=== PATIENT | male | born 1955 | race Caucasian/White ===

== ENCOUNTER → 2016-07-10 | Outpatient (CLI) | payer OTHER ==
[~2016-07-10] MED LIST: ACET-1256 PO; ASPI81TA28 PO; LISI-725 PO; TRAZ50TA35 PO
[2016-07-10 18:06] LABS: BLOOD UREA NITROGEN 13 mg/dl (7-18); BUN/CREATININE RATIO 15.6 (10-20); CALCIUM 8.9 mg/dl (8.5-10.1); CARBON DIOXIDE 30 mmol/L (21-32); CHLORIDE 103 mmol/L (98-107); CREATININE 0.83 mg/dl (0.60-1.40); GLUCOSE 103 mg/dl (70-99); POTASSIUM 4.3 mmol/L (3.5-5.1); SODIUM 140 mmol/L (136-145)
[2016-07-10 18:09] LABS: CHOLESTEROL 217 mg/dl (0-200); CHOLESTEROL/HDL RATIO 6.4; HDL CHOLESTEROL 34 mg/dl; LDL CHOLESTEROL CALCULATED 130 mg/dl; TRIGLYCERIDES 264 mg/dl (0-150); VERY LOW DENSITY LIPOPROT CALC 53 mg/dl
[2016-07-13 22:29] LABS: HEPATITIS C RNA TMA QUAL Not detected
== END | disposition home or self-care (01) ==
LOC: C.LABPVFM 13:22
PROVIDERS: ATTEND Family Medicine
DX: I10 Essential (primary) hypertension (principal); K76.0 Fatty (change of) liver, not elsewhere classified; Z00.00 Encounter for general adult medical examination without abnormal findings

== ENCOUNTER → 2017-04-10 | Outpatient (CLI) | payer OTHER ==
[2017-04-10 17:50] LABS: HEMATOCRIT 47.3 % (42-52); MEAN CELL VOLUME 91.7 fL (80-100); MEAN CORPUSCULAR HEMOGLOBIN 30.6 pg (25-34); MEAN CORPUSCULAR HGB CONC 33.4 g/dl (32-36); MEAN PLATELET VOLUME 9.6 fL (7.4-10.4); PLATELET COUNT 302 K/uL (130-400); RED BLOOD COUNT 5.16 M/uL (4.7-6.1); WHITE BLOOD COUNT 9.74 K/uL (4.8-10.8)
[2017-04-10 18:40] LABS: ALT/SGPT 24 U/L (12-78); AST/SGOT 13 U/L (15-37); BLOOD UREA NITROGEN 10 mg/dl (7-18); BUN/CREATININE RATIO 12.5 (10-20); CARBON DIOXIDE 32 mmol/L (21-32); CHLORIDE 100 mmol/L (98-107); CREATININE 0.78 mg/dl (0.60-1.40); GLUCOSE 99 mg/dl (70-99); POTASSIUM 4.4 mmol/L (3.5-5.1); SODIUM 136 mmol/L (136-145)
[2017-04-10 18:43] LABS: ALB/GLOB RATIO 0.7 (0.9-2); ALKALINE PHOSPHATASE 77 U/L (45-117); CHOLESTEROL 215 mg/dl (0-200); CHOLESTEROL/HDL RATIO 6.1; HDL CHOLESTEROL 35 mg/dl; LDL CHOLESTEROL CALCULATED 133 mg/dl; TRIGLYCERIDES 234 mg/dl (0-150); VERY LOW DENSITY LIPOPROT CALC 47 mg/dl
== END | disposition home or self-care (01) ==
LOC: C.LABPVFM 14:38
PROVIDERS: ATTEND Family Medicine
DX: I67.1 Cerebral aneurysm, nonruptured (principal); N43.40 Spermatocele of epididymis, unspecified; N40.0 Benign prostatic hyperplasia without lower urinary tract symptoms

== ENCOUNTER → 2017-07-23 | Outpatient (CLI) | payer OTHER | END | disposition home or self-care (01) | LOC: C.LABPVFM 14:33 | PROVIDERS: ATTEND Urology | DX: N40.0 Benign prostatic hyperplasia without lower urinary tract symptoms (principal) ==

== ENCOUNTER → 2017-08-20 | Outpatient (CLI) | payer OTHER ==
[2017-08-20 17:39] LABS: ALT/SGPT 27 U/L (12-78); AST/SGOT 17 U/L (15-37); BLOOD UREA NITROGEN 13 mg/dl (7-18); CALCIUM 9.1 mg/dl (8.5-10.1); CARBON DIOXIDE 31 mmol/L (21-32); CREATININE 0.85 mg/dl (0.60-1.40); GLUCOSE 99 mg/dl (70-99); POTASSIUM 4.4 mmol/L (3.5-5.1); SODIUM 137 mmol/L (136-145)
[2017-08-20 18:00] LABS: ALBUMIN 3.5 gm/dl (3.4-5.0); ALKALINE PHOSPHATASE 75 U/L (45-117); CHOLESTEROL 219 mg/dl (0-200); LDL CHOLESTEROL CALCULATED 132 mg/dl; TOTAL PROTEIN 7.6 gm/dl (6.4-8.2)
== END | disposition home or self-care (01) ==
LOC: C.LABPVFM 13:46
PROVIDERS: ATTEND Family Medicine
DX: G31.84 Mild cognitive impairment of uncertain or unknown etiology (principal)

== ENCOUNTER 2023-07-23 18:56 | Inpatient (IN) ==
[2023-07-23] MEDS: dexAMETHasone**PF** 10 MG/ML VIAL IV ONE (19:15)
[2023-07-23] MEDS: ALBUT/IPRATROP 3MG/0.5MG NEB 3 ML VIAL NEB ONE (19:15)
--- NOTE | 2023-07-23 19:17 | Emergency Department Note ---
Impression & Plan Acute exacerbation of chronic obstructive pulmonary disease, Hypoxia, Pulmonary edema, Elevated troponin I level, Acute on chronic respiratory acidosis ED Provider Note NAME: MONSE CORDERO AGE: 68 SEX: M : 1955 ARRIVES VIA: Walk-In INFORMANT: Patient, ED PROVIDER(S): Sandor Garland DO CHIEF COMPLAINT: Shortness of breath HPI: The patient is a 68-year-old male who presented to the emergency department for shortness of breath. The patient states has been having shortness of breath over the course of the last week. He does have a history of tobacco use. He also has a history of cerebral aneurysm and coronary artery disease. He denies having any lower extremity swelling. He denies having any chest pain. He states he has had a dry cough intermittently. He states his symptoms are worse with exertion. He does not have orthopnea. The patient is not been seen by his family doctor for the symptoms. He was brought directly back from triage because of abnormal vital signs. ROS: See above HPI for pertinent positives & negatives. A total of 10 systems reviewed and were otherwise negative. PAST MEDICAL HISTORY: See Below PAST SURGICAL HISTORY: See Below FAMILY HISTORY: See Below SOCIAL HISTORY: See Below HOME MEDICATIONS: See Below ALLERGIES: See Below VITALS: See Below PHYSICAL EXAMINATION: GENERAL: The patient is awake and alert. He is very anxious and appears to be very ill. EYES: The conjunctivae are clear. The pupils are round and reactive. EARS, NOSE, MOUTH AND THROAT: The nose is without any evidence of any deformity. NECK: The neck is nontender and supple. RESPIRATORY: Diminished and absent breath sounds are noted throughout. There is very poor air movement. There is significant conversational dyspnea and tachypnea. Pursed of breathing was noted. CARDIOVASCULAR: Tachycardic heart sounds are noted to auscultation. There is no definite murmur GASTROINTESTINAL: The abdomen is soft. Abdomen is nontender. MUSCULOSKELETAL/EXTREMITIES: There is no evidence of gross deformity full range of motion is noted in the hips and shoulders. SKIN: Skin was cool and dry. There is no pedal edema. Skin was mottled. NEUROLOGIC: Patient is awake alert and oriented x3 MEDICAL DECISION MAKING: The patient is a 68-year-old male who presented to the emergency department for an evaluation of difficulty breathing. The patient was brought directly from triage to resuscitation room. He was mottled and short of breath. He was obtunded to some degree but also hypoxic. I discussed the patient's laboratory and radiographic studies with him and his family member. He was treated with a small fluid bolus IV antibiotics bronchodilator therapy IV steroids and he was placed on BiPAP. The patient slowly started to improve. The patient's chest x- ray was read as pulmonary edema and his EKG was abnormal. He also had an elevation in his troponin and his BMP. Because of the complexity the patient's presentation I discussed his condition with the on-call [facility] hospitalist. After discussion they did recommend a CT of the chest for further evaluation. The patient's condition slowly improved. He was felt to be a good candidate for inpatient management. I discussed his condition with his daughter as well. Triage Nursing notes reviewed. Prior medical records reviewed Vital Signs: reviewed and remarkable for hypertension and hypoxia. Differential diagnosis: Reactive airway disease, pneumonia, pneumothorax, COPD, CHF, infections, cardiac ischemia, pulmonary embolism, musculoskeletal, gastrointestinal, as well as other pathologies. ER treatment provided: See below Diagnostics interpreted by me: ECG: EKG was obtained in the emergency department. My interpretation is sinus tachycardia at 121 bpm. Incomplete right bundle branch block pattern was noted with ST depressions in the inferior and low lateral leads. There was PACs noted. This was compared to a tracing from April 08, 2012. There is an increase in rate otherwise no changes were noted Cardiac Monitoring: An order was placed for continuous cardiac monitoring. The monitor shows a rate of 110 bpm with sinus tachycardia. Laboratory studies: As stated above and show below. Imaging studies: See below. Radiographic imaging was reviewed by myself Consultation(s): I discussed this case with Dr. Burrell [facility] COURSE: Procedures: none Critical Care: I have personally spent greater than 55 minutes of critical care time in the direct management of this patient. This includes bedside care, interpretation of diagnostic studies, and testing, discussion with consultants, patient, and family members, and other required patient management activities. This 55 minutes is in excess of all separately billable procedures. 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 History of coronary artery bypass graft Family History Mother Cancer Sister Cancer of the brain Father Prostate cancer Denies family history of Ovarian cancer Myocardial infarction Breast cancer Colorectal cancer Social History Smoking Status: Current every day smoker Tobacco Type: Cigarettes packs per day: 1.5; Cigarettes Per Day: 40; Do You Dip or Chew Tobacco: No; Hx Alcohol Use: No Hx Substance Use: Yes Last Used Substance: Days (ago) Last Used Substance Other:: 07/20/23 Preferred Language: Swedish Communication Ability: Effective 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 Required: No Beliefs That Will Affect Care: None marital status: Single Current Living Situation: Alone current occupational status: retired Feels Safe at Home: Yes Safety Concerns: Feels Safe At This Time caffeine: Yes Dental Care, Regularly: No Physical Activity Frequency: Does not Exercise Seatbelt Use: always Sunscreen Use: No Assistive Devices: Glasses Allergies Allergies Allergy/AdvReac Type Severity Reaction Status Date / Time sulfamethoxazole AdvReac Intermediate Dizziness Verified 07/23/23 20:04 trimethoprim AdvReac Intermediate Dizziness Verified 07/23/23 20:04 Home Meds Home Medications Medication Instructions Recorded Confirmed acetaminophen 500 mg tablet 1,000 mg PO DIRECTED PRN Pain 04/29/19 07/23/23 (Tylenol Extra Strength) escitalopram oxalate 20 mg tablet 20 mg PO QAM 09/19/20 07/23/23 mirtazapine 45 mg tablet 45 mg PO QPM 09/19/20 07/23/23 celecoxib 100 mg capsule (Celebrex) 100 mg PO BID 07/23/23 07/23/23 empagliflozin 10 mg tablet 10 mg PO QAM 07/23/23 07/23/23 (Jardiance) omeprazole 40 mg capsule,delayed 40 mg PO QPM 07/23/23 07/23/23 release Previous Rx's Medication Instructions Recorded metformin 500 mg tablet 500 mg PO BID #60 tabs 08/02/20 atorvastatin 40 mg tablet 40 mg PO QAM #90 tabs 02/27/22 lisinopril 5 mg tablet 5 mg PO QAM #90 tabs 02/27/22 metoprolol succinate 25 mg 25 mg PO QAM #90 tabs 02/27/22 tablet,extended release 24 hr aspirin 81 mg tablet,delayed 81 mg PO DAILY #90 tabs 01/17/23 release Results & Data (ED) Vital Signs Vital Signs - 24 hr 07/23/23 18:59 07/23/23 19:04 07/23/23 19:08 Temperature 36.6 C Temperature Source Temporal Artery Scan Pulse Rate 124 H 122 H Pulse Rate [Apical] Pulse Rate from SpO2 Sensor Respiratory Rate 20 Respiratory Effort / Characteristics Non-Labored Spontaneous Respiratory Depth Normal Respiratory Pattern Blood Pressure 167/78 H Blood Pressure [Left Arm] Blood Pressure Mean 107 Blood Pressure Mean [Left Arm] Blood Pressure Position Sitting Pulse Oximetry 74 L 70 L Oxygen Delivery Method Room Air Oxygen Flow Rate 0 Fraction of Inspired Oxygen Sepsis Recent Fever Within 48 Hours No Sepsis New/Unexplained Change in Mental Status N/A Sepsis Action Taken by Nursing No Action Required Oxygen Flow Rate - Titration 15 07/23/23 19:14 07/23/23 19:17 07/23/23 19:30 Temperature Temperature Source Pulse Rate 120 H 122 H Pulse Rate [Apical] 120 H Pulse Rate from SpO2 Sensor 124 H 91 H Respiratory Rate 34 H Respiratory Effort / Characteristics Labored Respiratory Depth Respiratory Pattern Blood Pressure 179/109 H Blood Pressure [Left Arm] 141/111 H Blood Pressure Mean 132 Blood Pressure Mean [Left Arm] 121 Blood Pressure Position Pulse Oximetry 96 96 94 Oxygen Delivery Method Nebulizer Nebulizer Oxygen Flow Rate Fraction of Inspired Oxygen Sepsis Recent Fever Within 48 Hours Sepsis New/Unexplained Change in Mental Status Sepsis Action Taken by Nursing Oxygen Flow Rate - Titration 07/23/23 19:31 07/23/23 19:44 07/23/23 19:45 Temperature Temperature Source Pulse Rate 119 H 124 H 135 H Pulse Rate [Apical] Pulse Rate from SpO2 Sensor 116 H 118 H Respiratory Rate 30 H Respiratory Effort / Characteristics Non-Labored Spontaneous Respiratory Depth Normal Respiratory Pattern Regular Blood Pressure 188/96 H 154/91 H Blood Pressure [Left Arm] Blood Pressure Mean 126 112 Blood Pressure Mean [Left Arm] Blood Pressure Position Pulse Oximetry 96 97 91 Oxygen Delivery Method Nebulizer Non-rebreather Oxygen Flow Rate Fraction of Inspired Oxygen 80 Sepsis Recent Fever Within 48 Hours Sepsis New/Unexplained Change in Mental Status Sepsis Action Taken by Nursing Oxygen Flow Rate - Titration 07/23/23 20:00 07/23/23 20:15 07/23/23 20:32 Temperature Temperature Source Pulse Rate 123 H Pulse Rate [Apical] Pulse Rate from SpO2 Sensor 117 H 114 H 117 H Respiratory Rate Respiratory Effort / Characteristics Respiratory Depth Respiratory Pattern Blood Pressure 136/100 126/105 H Blood Pressure [Left Arm] Blood Pressure Mean 112 112 Blood Pressure Mean [Left Arm] Blood Pressure Position Pulse Oximetry 96 97 97 Oxygen Delivery Method BiPAP Oxygen Flow Rate Fraction of Inspired Oxygen Sepsis Recent Fever Within 48 Hours Sepsis New/Unexplained Change in Mental Status Sepsis Action Taken by Nursing Oxygen Flow Rate - Titration 07/23/23 21:00 Temperature Temperature Source Pulse Rate 121 H Pulse Rate [Apical] Pulse Rate from SpO2 Sensor 109 H Respiratory Rate Respiratory Effort / Characteristics Respiratory Depth Respiratory Pattern Blood Pressure 117/85 Blood Pressure [Left Arm] Blood Pressure Mean 95 Blood Pressure Mean [Left Arm] Blood Pressure Position Pulse Oximetry 97 Oxygen Delivery Method Oxygen Flow Rate Fraction of Inspired Oxygen Sepsis Recent Fever Within 48 Hours Sepsis New/Unexplained Change in Mental Status Sepsis Action Taken by Nursing Oxygen Flow Rate - Titration Home Medications Current Medication List: was personally reviewed by me Laboratory Data Attestation: I reviewed the patient's lab results. 07/23/23 19:18 07/23/23 19:18 Lab Results 07/23/23 07/23/23 07/23/23 Range/Units 19:18 19:20 19:27 WBC 14.86 H (4.8-10.8) K/ul RBC 5.84 (4.70-6.10) M/uL Hgb 17.1 (14.0-18.0) g/dl POC Hgb 19.4 H (14.0-18.0) g/dl Hct 55.4 H (42.0-52.0) % POC Hct 57 H (42-52) % MCV 94.9 (80.0-100.0) fL MCH 29.3 (25.0-34.0) pg MCHC 30.9 L (32.0-36.0) g/dL RDW Std Deviation 51.5 H (36.4-46.3) fL RDW Coeff of Christy 14.9 H (11.5-14.5) % Plt Count 350 (130-400) K/uL MPV 9.9 (9.4-12.4) fL Immature Gran % (Auto) 0.8 % Neut % (Auto) 82.5 % Lymph % (Auto) 6.2 % [place] % (Auto) 10.2 % Eos % (Auto) 0.0 % Baso % (Auto) 0.3 % Neut # (Auto) 12.27 H (1.40-6.50) K/uL Lymph # (Auto) 0.92 L (1.20-3.40) K/uL [place] # (Auto) 1.51 H (0.11-0.59) K/uL Eos # (Auto) 0.00 (0.00-0.50) K/uL Baso # (Auto) 0.04 (0.00-0.20) K/uL Immature Gran # (Auto) 0.12 (0.01-0.20) K/uL Absolute Nucleated RBC 0.04 (0.00-0.12) K/uL Nucleated RBC % (auto) 0.3 % Polychromasia 1+ Echinocytes 2+ PT Cancelled INR Cancelled APTT Cancelled PTT Ratio Cancelled ABG pH (7.35-7.45) ABG pCO2 (35-46) mmHg ABG pO2 (80-95) mmHg ABG HCO3 (19-24) mmol/L ABG O2 Saturation (90-95) % ABG Base Excess (-9-1.8) mEq/L Ryan Test (Pos) VBG pH 7.17 L (7.36-7.41) VBG pCO2 80 H (38-50) mmHg VBG pO2 53 mmHg VBG HCO3 29 mmol/L VBG O2 Saturation 76.7 % VBG Base Excess -1.5 mEq/L Oxygen Given POC Sodium 141 (135-144) mmol/L Sodium 140 (136-145) mmol/L POC Potassium 3.9 (3.3-5.0) mmol/L Potassium 3.9 (3.5-5.1) mmol/L POC Chloride 101 (101-112) mmol/L Chloride 98 (98-107) mmol/L Carbon Dioxide 28 (21-32) mmol/L POC Total CO2 30 (24-31) mmol/L Anion Gap 14 H (3-11) POC Anion Gap 15.0 L (16-25) mmol/L POC BUN 25 H (7-18) mg/dl BUN 25 H (6-23) mg/dl Creatinine 1.17 (0.6-1.4) mg/dl POC Creatinine 1.0 (0.6-1.3) mg/dl Est Cr Clr Drug Dosing 71.6 ml/min Est GFR ( Amer) 73.3 ml/min Est GFR (Non-Af Amer) 63.2 ml/min BUN/Creatinine Ratio 21.4 H (10-20) Glucose 224 H (70-99(Fasting)) mg/dl POC Glucose (other) 228 H (70-99) mg/dl Lactate 5.7 H* (0.4-2.0) mmol/L Calcium 10.1 (8.6-10.3) mg/dl POC Ioniz Calcium Jaime 1.16 (1.12-1.32) mmol/l Magnesium 1.6 L (1.7-2.4) mg/dl Total Bilirubin 0.9 (0.2-1.0) mg/dl Direct Bilirubin 0.4 H (0-0.2) mg/dl AST 20 (13-39) U/L ALT 25 (7-52) U/L Alkaline Phosphatase 83 (34-104) U/L Troponin I High Sens 96.3 H* (0-20) pg/ml B-Natriuretic Peptide 1072 H (0-100) pg/ml Total Protein 8.7 H (6.0-8.3) gm/dl Albumin 3.8 (3.4-5.0) gm/dl Procalcitonin 0.42 (0-0.5) ng/ml Adenovirus (PCR) Not Detected (NotDetected) B. pertussis DNA (PCR) Not Detected (NotDetected) B.parapertussis DNA PCR Not Detected (NotDetected) C. pneumoniae DNA (PCR) Not Detected (NotDetected) Coronavirus OC43 (PCR) Not Detected (NotDetected) Coronavirus HKU1 (PCR) Not Detected (NotDetected) Coronavirus 229E (PCR) Not Detected (NotDetected) SARS-CoV-2 (PCR) Not Detected (NotDetected) Coronavirus NL63 (PCR) Not Detected (NotDetected) Human Metapneumovir PCR Not Detected (NotDetected) Influenza Type A (PCR) Not Detected (NotDetected) Influenza Type B (PCR) Not Detected (NotDetected) M. pneumoniae (PCR) Not Detected (NotDetected) Parainfluenza 1 (PCR) Not Detected (NotDetected) Parainfluenza 2 (PCR) Not Detected (NotDetected) Parainfluenza 3 (PCR) Not Detected (NotDetected) Parainfluenza 4 (PCR) Not Detected (NotDetected) RSV (PCR) Not Detected (NotDetected) Entero/Rhino (PCR) Not Detected (NotDetected) 07/23/23 07/23/23 07/23/23 Range/Units 20:18 21:09 21:10 WBC (4.8-10.8) K/ul RBC (4.70-6.10) M/uL Hgb (14.0-18.0) g/dl POC Hgb (14.0-18.0) g/dl Hct (42.0-52.0) % POC Hct (42-52) % MCV (80.0-100.0) fL MCH (25.0-34.0) pg MCHC (32.0-36.0) g/dL RDW Std Deviation (36.4-46.3) fL RDW Coeff of Christy (11.5-14.5) % Plt Count (130-400) K/uL MPV (9.4-12.4) fL Immature Gran % (Auto) % Neut % (Auto) % Lymph % (Auto) % [place] % (Auto) % Eos % (Auto) % Baso % (Auto) % Neut # (Auto) (1.40-6.50) K/uL Lymph # (Auto) (1.20-3.40) K/uL [place] # (Auto) (0.11-0.59) K/uL Eos # (Auto) (0.00-0.50) K/uL Baso # (Auto) (0.00-0.20) K/uL Immature Gran # (Auto) (0.01-0.20) K/uL Absolute Nucleated RBC (0.00-0.12) K/uL Nucleated RBC % (auto) % Polychromasia Echinocytes PT TNP 11.3 INR TNP 1.0 APTT TNP 26 PTT Ratio TNP 0.9 ABG pH 7.20 L (7.35-7.45) ABG pCO2 81 H (35-46) mmHg ABG pO2 266 H (80-95) mmHg ABG HCO3 32 H (19-24) mmol/L ABG O2 Saturation 99.8 H (90-95) % ABG Base Excess 1.2 (-9-1.8) mEq/L Ryan Test Pos (Pos) VBG pH (7.36-7.41) VBG pCO2 (38-50) mmHg VBG pO2 mmHg VBG HCO3 mmol/L VBG O2 Saturation % VBG Base Excess mEq/L Oxygen Given 80% FiO2 POC Sodium (135-144) mmol/L Sodium (136-145) mmol/L POC Potassium (3.3-5.0) mmol/L Potassium (3.5-5.1) mmol/L POC Chloride (101-112) mmol/L Chloride (98-107) mmol/L Carbon Dioxide (21-32) mmol/L POC Total CO2 (24-31) mmol/L Anion Gap (3-11) POC Anion Gap (16-25) mmol/L POC BUN (7-18) mg/dl BUN (6-23) mg/dl Creatinine (0.6-1.4) mg/dl POC Creatinine (0.6-1.3) mg/dl Est Cr Clr Drug Dosing ml/min Est GFR ( Amer) ml/min Est GFR (Non-Af Amer) ml/min BUN/Creatinine Ratio (10-20) Glucose (70-99(Fasting)) mg/dl POC Glucose (other) (70-99) mg/dl Lactate 2.4 H* (0.4-2.0) mmol/L Calcium (8.6-10.3) mg/dl POC Ioniz Calcium Jaime (1.12-1.32) mmol/l Magnesium (1.7-2.4) mg/dl Total Bilirubin (0.2-1.0) mg/dl Direct Bilirubin (0-0.2) mg/dl AST (13-39) U/L ALT (7-52) U/L Alkaline Phosphatase (34-104) U/L Troponin I High Sens 97.2 H* (0-20) pg/ml B-Natriuretic Peptide (0-100) pg/ml Total Protein (6.0-8.3) gm/dl Albumin (3.4-5.0) gm/dl Procalcitonin (0-0.5) ng/ml Adenovirus (PCR) (NotDetected) B. pertussis DNA (PCR) (NotDetected) B.parapertussis DNA PCR (NotDetected) C. pneumoniae DNA (PCR) (NotDetected) Coronavirus OC43 (PCR) (NotDetected) Coronavirus HKU1 (PCR) (NotDetected) Coronavirus 229E (PCR) (NotDetected) SARS-CoV-2 (PCR) (NotDetected) Coronavirus NL63 (PCR) (NotDetected) Human Metapneumovir PCR (NotDetected) Influenza Type A (PCR) (NotDetected) Influenza Type B (PCR) (NotDetected) M. pneumoniae (PCR) (NotDetected) Parainfluenza 1 (PCR) (NotDetected) Parainfluenza 2 (PCR) (NotDetected) Parainfluenza 3 (PCR) (NotDetected) Parainfluenza 4 (PCR) (NotDetected) RSV (PCR) (NotDetected) Entero/Rhino (PCR) (NotDetected) Administered Medications Azithromycin 500 mg/ Dextrose 255 mls @ 125 mls/hr IV 2230 ONE Stop: 07/24/23 00:32 Last Admin: 07/23/23 22:57 Dose: 125 mls/hr Documented By: BRONSON Discontinued Medications Albuterol (Albut/Ipratrop 3mg/0.5mg Neb 3 Ml Vial) 12 ml NEB ONE ONE; Protocol Stop: 07/23/23 19:06 Last Admin: 07/23/23 19:15 Dose: 12 ml Documented By: GASTON Dexamethasone Sodium Phosphate (DexamethasonePf 10 Mg/Ml Vial) 10 mg IV NOW ONE Stop: 07/23/23 19:06 Last Admin: 07/23/23 19:15 Dose: 10 mg Documented By: EMB Ceftriaxone Sodium (Rocephin) 2,000 mg in 50 mls @ 100 mls/hr IV NOW STA Stop: 07/23/23 19:41 Last Infusion: 07/23/23 20:21 Dose: Infused Documented By: Admin: 07/23/23 19:53 Dose: 100 mls/hr Documented By: EMB Sodium Chloride (Nss) 500 mls @ 999 mls/hr IV .Q31M ONE Stop: 07/23/23 20:14 Last Infusion: 07/23/23 20:21 Dose: Infused Documented By: Admin: 07/23/23 19:53 Dose: 999 mls/hr Documented By: EMB Magnesium Sulfate/Dextrose (Magnesium Sulfate / D5w) 1 gm in 100 mls @ 100 mls/hr IV Q1H ANALIA Stop: 07/23/23 22:00 Last Infusion: 07/23/23 22:53 Dose: Infused Documented By: Admin: 07/23/23 21:44 Dose: 100 mls/hr Documented By: Infusion: 07/23/23 21:20 Dose: Infused Documented By: Admin: 07/23/23 20:20 Dose: 100 mls/hr Documented By: EMB Ioversol (Optiray 350 500ml) 78 ml IV ONCE ONE Stop: 07/23/23 21:35 Last Admin: 07/23/23 21:35 Dose: 78 ml Documented By: PARTHA Imaging Data Attestation: I personally reviewed and interpreted this imaging study as follows: My Impression: 1 view chest x-ray was obtained in the emergency department. My interpretation is cardiomegaly, final report below Radiologist's Impression: Chest X-Ray 07/23/23 19:05 SINGLE VIEW CHEST CLINICAL HISTORY: Sepsis. FINDINGS: 2 AP, portable, upright chest radiographs are compared to study dated 04/08/2012. The patient is status post midline sternotomy. The heart is enlarged noting atherosclerotic calcification of the thoracic aorta. There is pulmonary vascular congestion. There is bibasilar scarring/atelectasis. No airspace consolidation or large pleural effusion is identified. No pneumothorax is seen. The skeletal structures are osteopenic. The bony thorax is grossly intact. Arthritic change is noted in the left shoulder. IMPRESSION: Cardiomegaly with pulmonary vascular congestion. ACT 112: Negative or not required by law. Electronically signed by: Oren Perez M.D. 07/23/2023 7:26 PM Chest CTA 07/23/23 20:34 Exam(s): CTA CHEST IV Amt: 78 ml opti 320 EXAM: CT Angiography Chest With Intravenous Contrast CLINICAL HISTORY: Reason for exam: PE. TECHNIQUE: Axial computed tomographic angiography images of the chest with intravenous contrast. CTDI is 40.94 mGy and DLP is 976.16 mGy-cm. Automated exposure control was utilized for the study. A dose lowering technique was utilized adhering to the principles of ALARA. MIP reconstructed images were created and reviewed. COMPARISON: None. FINDINGS: Limitations: Exam is limited due to motion/breathing artifact. Pulmonary arteries: Unremarkable. Normal enhancement of the pulmonary arteries with no filling defect to suggest pulmonary embolus. Aorta: Atherosclerotic disease of aorta with no dissection. Mild aneurysmal dilatation of the distal thoracic aorta measuring 3.1 x 3.1 cm. Lungs: There is diffuse interstitial prominence with scattered minimal groundglass pattern suggestive of interstitial lung disease versus diffuse pneumonitis. Findings are atypical for interstitial pulmonary edema although not excluded. There are small nodularities within the right lower lobe, largest measuring 9.3 mm. There is a small cavitary lesion in the left lung apex (image 113, series 3 measuring 7 mm). These could represent nonspecific inflammatory changes versus neoplasm. Minimal atelectasis of the lingular lobe. No mass. Pleural space: Unremarkable. No significant effusion. No pneumothorax. Heart: Unremarkable. No cardiomegaly. No significant pericardial effusion. No evidence of RV dysfunction. Normal cardiac size with coronary artery calcifications. Bones/joints: No acute fracture. No dislocation. Soft tissues: Unremarkable. Lymph nodes: Unremarkable. No enlarged lymph nodes. Liver: Abdominal structures revealed diffuse fatty liver otherwise unremarkable. Other findings: Multilevel degenerative disease of the spine. IMPRESSION: 1. No pulmonary embolus or aortic dissection. 2. Diffuse interstitial pneumonitis versus chronic interstitial lung disease. 3. Small right lower lobe and left apical nodularities which may indicate inflammatory process versus neoplasm. Recommend short interval CT examination at 3 months interval to evaluate resolution. Electronically signed by: Namrata Olmstead MD 07/23/23 22:55 PM Discharge Plan Visit Data Chief Complaint: Shortness of Breath/Dyspnea Stated Complaint: SOB, URINARY SYMPTOMS ED Provider: Sandor Garland Discharge Problem: Acute exacerbation of chronic obstructive pulmonary disease, Hypoxia, Pulmonary edema, Elevated troponin I level, Acute on chronic respiratory acidosis Patient Disposition: Admitted As Inpatient Discharge Instructions Interventions: ED Discharge Assessment Last Done: 07/23/23 22:27 Discharge Problem: Pulmonary edema Qualifiers: Chronicity: acute Qualified Code(s): J81.0 - Acute pulmonary edema
--- NOTE | 2023-07-23 19:27 | XRay Report ---
SINGLE VIEW CHEST CLINICAL HISTORY: Sepsis. FINDINGS: 2 AP, portable, upright chest radiographs are compared to study dated 04/08/2012. The patie nt is status post midline sternotomy. The heart is enlarged noting atherosclerotic calcification of t he thoracic aorta. There is pulmonary vascular congestion. There is bibasilar scarring/atelectasis. N o airspace consolidation or large pleural effusion is identified. No pneumothorax is seen. The skelet al structures are osteopenic. The bony thorax is grossly intact. Arthritic change is noted in the lef t shoulder. IMPRESSION: Cardiomegaly with pulmonary vascular congestion. ACT 112: Negative or not required by law. Electronically signed by: Oren Perez M.D. 07/23/2023 7:26 PM
[2023-07-23 19:40] LABS: iSTAT Hemoglobin 19.4 g/dl (14.0-18.0); iSTAT Ionized Calcium 1.16 mmol/l (1.12-1.32); iSTAT Potassium 3.9 mmol/L (3.3-5.0)
[2023-07-23 19:42] LABS: Base Excess VBG -1.5 mEq/L; HCO3 VBG 29 mmol/L; Oxygen Saturation VBG 76.7 %; PCO2 VBG 80 mmHg (38-50); PO2 VBG 53 mmHg; pH VBG 7.17 (7.36-7.41)
[2023-07-23 19:50] LABS: Hematocrit (blood only) 55.4 % (42.0-52.0); Hemoglobin 17.1 g/dl (14.0-18.0); Mean Corpuscular Hemoglobin 29.3 pg (25.0-34.0); Mean Corpuscular Hgb Conc 30.9 g/dL (32.0-36.0); Mean Corpuscular Volume 94.9 fL (80.0-100.0); Mean Platelet Volume 9.9 fL (9.4-12.4); Nucleated RBC # (auto) 0.04 K/uL (0.00-0.12); Nucleated RBC % (auto) 0.3 %; Platelet Count 350 K/uL (130-400); RDW Coefficient of Variation 14.9 % (11.5-14.5); RDW Standard Deviation 51.5 fL (36.4-46.3); Red Blood Count 5.84 M/uL (4.70-6.10); White Blood Count 14.86 K/ul (4.8-10.8)
[2023-07-23] MEDS: cefTRIAXone SODIUM 2,000 MG/50 ML BAG IV STA (19:53)
[2023-07-23] MEDS: SODIUM CHLORIDE 0.9% 500 ML IV ONE (19:53)
[2023-07-23 19:57] LABS: Albumin Level 3.8 gm/dl (3.4-5.0); BUN Creatinine Ratio 21.4 (10-20); Bilirubin Direct 0.4 mg/dl (0-0.2); Bilirubin,Total 0.9 mg/dl (0.2-1.0); Calcium 10.1 mg/dl (8.6-10.3); Creatinine Clr Calc Pharmacy 71.6 ml/min; Est GFR (African American) 73.3 ml/min; Est GFR (Non-African American) 63.2 ml/min; Magnesium 1.6 mg/dl (1.7-2.4); Potassium 3.9 mmol/L (3.5-5.1); Total Protein 8.7 gm/dl (6.0-8.3)
[2023-07-23 20:13] LABS: Troponin I High Sensitivity 96.3 pg/ml (0-20)
[2023-07-23] MEDS: MAGNESIUM SULFATE / D5W 1 GM/100 ML BAG IV SCH (20:20)
[2023-07-23 20:23] LABS: Basophils # (auto) 0.04 K/uL (0.00-0.20); Basophils % (auto) 0.3 %; Echinocytes 2+; Immature Granulocytes # (auto) 0.12 K/uL (0.01-0.20); Immature Granulocytes % (auto) 0.8 %; Lymphocytes # (auto) 0.92 K/uL (1.20-3.40); Lymphocytes % (auto) 6.2 %; Monocytes # (auto) 1.51 K/uL (0.11-0.59); Monocytes % (auto) 10.2 %; Neutrophils # (auto) 12.27 K/uL (1.40-6.50); Neutrophils % (auto) 82.5 %; Polychromasia 1+
--- NOTE | 2023-07-23 20:35 | History & Physical Report ---
Date of Service July 23, 2023 Assessment & Plan (1) Acute respiratory failure with hypoxia and hypercapnia: Plan: Worsening SOB/dyspnea since Wednesday 07/19 Hypoxic at 70% on RA on ED arrival Started on BiPAP Patient denies hx of CHF or COPD Leukocytosis of 14.86 with a neutrophil predominance; afebrile Procalcitonin WNL BioFire negative AB.20/81/266/32; trend ABG while on BiPAP CXR revealed cardiomegaly with pulmonary vascular congestion EKG revealed sinus tachycardia with PVCs at [address] angio of the chest ordered, pending BNP elevated at 1072 (no prior for comparison) Troponin elevated at 96.3-->97.2 on arrival; ?Demand ischemia Echocardiogram ordered, pending Rocephin 2000 mg IV q24h Will add azithromycin 500 mg IV q24h for additional coverage; QTc 403 MRSA swab ordered, pending Sputum culture ordered, pending Guaifenesin 600 mg p.o. q12h Solu-medrol 40mg IV BID DuoNeb 3 mL q6r for expiratory rhonchi Incentive spirometry, flutter valve Continuous property assessment monitor Continue BiPAP and wean off as tolerated Supplemental oxygen as needed to maintain SpO2 >94%; he does not use supplemental oxygen at baseline A.m. CBC, BMP, mag, troponin (2) Sepsis: Plan: Potential pulmonary source Lactate elevated at 5.7-->2.4 on arrival Blood cultures ordered, pending Antibiotics (as above) Clinically, suspect component of acute on chronic CHF; for this reason, sepsis fluid bolus was not given in the ED (3) Tobacco abuse: Plan: Current everyday tobacco cigarette smoker; 2 PPD Patient will require counseling/education Patient declined nicotine patch while inpatient (4) Hypomagnesemia: Plan: Magnesium mildly low at 1.6 on arrival Magnesium sulfate 1 g x 2 in the ED Recheck a.m. mag (5) Fall: Plan: Unwitnessed, ground-level fall over the weekend of 07/19; no head strike; no LOC; no dizziness Patient reports his legs gave out on him He was not down for extended period of time, but he does note that he has had some intermittent left leg numbness/tingling One episode of urinary incontinence over the weekend; no saddle anesthesia; clinically, patient denies burning with urination or dysuria; urinalysis ordered, pending PT/OT consulted Fall precautions (6) DM2 (diabetes mellitus, type 2): Plan: Last A1c at 6.9% on 02/28/2020 Glucose 228 on admission Pharmacy glycemic consult given Decadron use Hold metformin Hold Jardiance pending UA Recommend starting Lantus 12 u BID while inpatient SSI; with target BSG range 110-140mg/dL, CF 25, carb ratio 10 T2DM diet BSG ACHS Adjust regimen as needed AM A1c (7) Hypertension: Plan: Continue metoprolol (8) Anxiety: Plan: Continue escitalopram (9) MCI (mild cognitive impairment) with memory loss: Plan: Patient's daughter reports that he is around his cognitive baseline However, patient was not orientated to month/year on arrival; may have been secondary to acute hypoxia (10) CAD (coronary artery disease): Plan: Continue aspirin (11) Urinary incontinence: Plan: One episode over the weekend Urinalysis ordered, pending Plan Disposition: Admit to PCU telemetry Full code AHA diet VTE PPx: Lovenox 40 mg SQ q24h History of Present Illness Chief Complaint: SOB/dyspnea Primary Care Provider: NO PCP Kamran is a 68-year-old male with PMH of HTN, CAD, CABGx4, anxiety, depression, T2DM, and vertigo. He presented for SOB/dyspnea and wheezing that has been worsening since Wednesday 07/19. Patient reports that he is having shortness of breath both at rest and with exertion. It is worse when he lies on his back. No prior experiences like this one. Patient is a current everyday tobacco cigarette smoker; 2 PPD; he also endorses smoking "wagon weed"; no cigars. He denies alcohol use. No supplemental oxygen use at home. Patient has not been taking any additional measures for his difficulty with breathing such as inhalers. He reports that he missed his regular medications yesterday, but has been taking them consistently. He does not currently take Lasix, and denies PMH of CHF. Of note, the patient did sustain a ground-level fall that was unwitnessed over the weekend. Patient denies head strike, LOC; he is unsure what caused him to fall, but reports that his legs gave out on him. No dizziness prior to fall. No tripping. Patient's daughter is at the bedside and also reports that he had 1 episode of urinary incontinence, which was new for him. Last BM was 1 week ago. Patient is tachycardic at 123 bpm, tachypneic at 34 RPM; SpO2 97% on BiPAP 11/09. ED course: Rocephin 2000 mg IV Decadron 10 mg IV Albuterol 12 mL Magnesium sulfate 1 g IV NSS 500 mL IV ROS: Patient endorses SOB at rest, intermittent left lower leg numbness, urinary incontinence x 1 (which is new according to daughter) Patient denies fever, chills, night sweats, body aches, dizziness/lightheadedness at rest or with exertion, headache, chest pain, left arm/shoulder/jaw pain or pressure, pleuritic CP, cough, hemoptysis, abdominal pain, N/V/D, burning with urination, blood in the urine or stool, or pain/swelling in the lower extremities bilaterally. Allergies Allergy/AdvReac Type Severity Reaction Status Date / Time sulfamethoxazole AdvReac Intermediate Dizziness Verified 07/23/23 20:04 trimethoprim AdvReac Intermediate Dizziness Verified 07/23/23 20:04 Home Medications Medication Instructions Recorded Confirmed Type acetaminophen 500 mg tablet 1,000 mg PO DIRECTED PRN Pain 04/29/19 07/23/23 History (Tylenol Extra Strength) metformin 500 mg tablet 500 mg PO BID #60 tabs 08/02/20 07/23/23 Rx escitalopram oxalate 20 mg tablet 20 mg PO QAM 09/19/20 07/23/23 History mirtazapine 45 mg tablet 45 mg PO QPM 09/19/20 07/23/23 History atorvastatin 40 mg tablet 40 mg PO QAM #90 tabs 02/27/22 07/23/23 Rx lisinopril 5 mg tablet 5 mg PO QAM #90 tabs 02/27/22 07/23/23 Rx metoprolol succinate 25 mg 25 mg PO QAM #90 tabs 02/27/22 07/23/23 Rx tablet,extended release 24 hr aspirin 81 mg tablet,delayed 81 mg PO DAILY #90 tabs 01/17/23 07/23/23 Rx release celecoxib 100 mg capsule (Celebrex) 100 mg PO BID 07/23/23 07/23/23 History empagliflozin 10 mg tablet 10 mg PO QAM 07/23/23 07/23/23 History (Jardiance) omeprazole 40 mg capsule,delayed 40 mg PO QPM 07/23/23 07/23/23 History release 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 History of coronary artery bypass graft Family History Mother Cancer Sister Cancer of the brain Father Prostate cancer Denies family history of Ovarian cancer Myocardial infarction Breast cancer Colorectal cancer Social History Smoking Status: Current every day smoker Tobacco Type: Cigarettes packs per day: 1.5; Cigarettes Per Day: 40; Do You Dip or Chew Tobacco: No; Hx Alcohol Use: No Hx Substance Use: Yes Last Used Substance: Days (ago) Last Used Substance Other:: 07/20/23 Preferred Language: Romanian Communication Ability: Effective [place] Required: No Beliefs That Will Affect Care: None marital status: Single Current Living Situation: Alone current occupational status: retired Feels Safe at Home: Yes Safety Concerns: Feels Safe At This Time caffeine: Yes Dental Care, Regularly: No Physical Activity Frequency: Does not Exercise Seatbelt Use: always Sunscreen Use: No Assistive Devices: Glasses Review of Systems Review of Systems: See HPI above Physical Exam Physical Exam: General: Moderate respiratory distress; lethargic; well-nourished; cooperative; 97% SpO2 on BiPAP HEENT: normocephalic, atraumatic; no scleral icterus; PERRLA; dry mucus membrane; vision and hearing intact Neck: supple; no lymphadenopathy; trachea midline Skin: warm, dry without signs of tenting; no cyanosis; no rashes, bruising, les ions, or erythema noted CV: chest wall NTP; RR, tachycardic around 120bpm; S1/S2 normal; no murmurs/rubs/gallops; pulses intact and symmetric at radial, DP, and PT Lungs: Moderate respiratory distress; symmetrical chest wall expansion; diminished breath sounds across all lung lynn; expiratory rhonchi auscultated at the right upper lung posteriorly ABD: Soft, NTP; BS present; no rebound/guarding MSK: no tics or fasciculations; no edema noted in the LEs b/l, nonerythematous; rough rice grader strength 5/5 bilaterally; patient demonstrates ability to wiggle toes bilaterally Neuro: Patient is alert and oriented to name, , and location; he is not oriented to month/year/or day of the week; some confusion with answering questions; fluent speech; no facial droop; no focal deficits; patient reports that sensation is intact, symmetric in the LEs B/L Results & Data Results & Data Vital Signs (Past 12 Hours) Vital Signs Temp Pulse Pulse Resp BP BP Pulse Ox 07/23/23 20:15 97 07/23/23 20:00 123 H 136/100 96 07/23/23 19:45 135 H 154/91 H 91 07/23/23 19:31 119 H 188/96 H 96 07/23/23 19:30 122 H 94 07/23/23 19:17 120 H 179/109 H 96 07/23/23 19:14 120 H 34 H 141/111 H 96 07/23/23 19:08 122 H 07/23/23 19:04 70 L 07/23/23 18:59 36.6 C 124 H 20 167/78 H 74 L O2 Del Method O2 Flow Rate 07/23/23 20:15 07/23/23 20:00 BiPAP 07/23/23 19:45 Non-rebreather 07/23/23 19:31 Nebulizer 07/23/23 19:30 Nebulizer 07/23/23 19:17 07/23/23 19:14 Nebulizer 07/23/23 19:08 07/23/23 19:04 0 07/23/23 18:59 Room Air Laboratory Results Abnormal lab results 07/23/23 07/23/23 07/23/23 Range/Units 19:18 19:27 21:09 WBC 14.86 H (4.8-10.8) K/ul POC Hgb 19.4 H (14.0-18.0) g/dl Hct 55.4 H (42.0-52.0) % POC Hct 57 H (42-52) % MCHC 30.9 L (32.0-36.0) g/dL RDW Std Deviation 51.5 H (36.4-46.3) fL RDW Coeff of Christy 14.9 H (11.5-14.5) % Neut # (Auto) 12.27 H (1.40-6.50) K/uL Lymph # (Auto) 0.92 L (1.20-3.40) K/uL [place] # (Auto) 1.51 H (0.11-0.59) K/uL ABG pH 7.20 L (7.35-7.45) ABG pCO2 81 H (35-46) mmHg ABG pO2 266 H (80-95) mmHg ABG HCO3 32 H (19-24) mmol/L ABG O2 Saturation 99.8 H (90-95) % VBG pH 7.17 L (7.36-7.41) VBG pCO2 80 H (38-50) mmHg Anion Gap 14 H (3-11) POC Anion Gap 15.0 L (16-25) mmol/L POC BUN 25 H (7-18) mg/dl BUN 25 H (6-23) mg/dl BUN/Creatinine Ratio 21.4 H (10-20) Glucose 224 H (70-99(Fasting)) mg/dl POC Glucose (other) 228 H (70-99) mg/dl Lactate 5.7 H* 2.4 H* (0.4-2.0) mmol/L Magnesium 1.6 L (1.7-2.4) mg/dl Direct Bilirubin 0.4 H (0-0.2) mg/dl Troponin I High Sens 96.3 H* (0-20) pg/ml B-Natriuretic Peptide 1072 H (0-100) pg/ml Total Protein 8.7 H (6.0-8.3) gm/dl Diagnostic Findings Chest X-Ray 07/23/23 19:05 SINGLE VIEW CHEST CLINICAL HISTORY: Sepsis. FINDINGS: 2 AP, portable, upright chest radiographs are compared to study dated 04/08/2012. The patient is status post midline sternotomy. The heart is enlarged noting atherosclerotic calcification of the thoracic aorta. There is pulmonary vascular congestion. There is bibasilar scarring/atelectasis. No airspace consolidation or large pleural effusion is identified. No pneumothorax is seen. The skeletal structures are osteopenic. The bony thorax is grossly intact. Arthritic change is noted in the left shoulder. IMPRESSION: Cardiomegaly with pulmonary vascular congestion. ACT 112: Negative or not required by law. Electronically signed by: Oren Perez M.D. 07/23/2023 7:26 PM Exam(s): CTA CHEST IV Amt: 78 ml opti 320 EXAM: CT Angiography Chest With Intravenous Contrast CLINICAL HISTORY: Reason for exam: PE. TECHNIQUE: Axial computed tomographic angiography images of the chest with intravenous contrast. CTDI is 40.94 mGy and DLP is 976.16 mGy-cm. Automated exposure control was utilized for the study. A dose lowering technique was utilized adhering to the principles of ALARA. MIP reconstructed images were created and reviewed. COMPARISON: None. FINDINGS: Limitations: Exam is limited due to motion/breathing artifact. Pulmonary arteries: Unremarkable. Normal enhancement of the pulmonary arteries with no filling defect to suggest pulmonary embolus. Aorta: Atherosclerotic disease of aorta with no dissection. Mild aneurysmal dilatation of the distal thoracic aorta measuring 3.1 x 3.1 cm. Lungs: There is diffuse interstitial prominence with scattered minimal groundglass pattern suggestive of interstitial lung disease versus diffuse pneumonitis. Findings are atypical for interstitial pulmonary edema although not excluded. There are small nodularities within the right lower lobe, largest measuring 9.3 mm. There is a small cavitary lesion in the left lung apex (image 113, series 3 measuring 7 mm). These could represent nonspecific inflammatory changes versus neoplasm. Minimal atelectasis of the lingular lobe. No mass. Pleural space: Unremarkable. No significant effusion. No pneumothorax. Heart: Unremarkable. No cardiomegaly. No significant pericardial effusion. No evidence of RV dysfunction. Normal cardiac size with coronary artery calcifications. Bones/joints: No acute fracture. No dislocation. Soft tissues: Unremarkable. Lymph nodes: Unremarkable. No enlarged lymph nodes. Liver: Abdominal structures revealed diffuse fatty liver otherwise unremarkable. Other findings: Multilevel degenerative disease of the spine. IMPRESSION: 1. No pulmonary embolus or aortic dissection. 2. Diffuse interstitial pneumonitis versus chronic interstitial lung disease. 3. Small right lower lobe and left apical nodularities which may indicate inflammatory process versus neoplasm. Recommend short interval CT examination at 3 months interval to evaluate resolution. Electronically signed by: Namrata Olmstead MD 07/23/23 22:55 PM Dictated: 07/23/232254 Transcribed: 07/23/232254 Code Status & VTE Plan Code Status Full code VTE Prophylaxis Plan VTE Prophylaxis will be ordered: Yes Supervising Physician Co-Signing Physician Notes Patient seen and examined, chart reviewed, case discussed with LALITA Davis and I agree with the assessment and plan as above. In brief, patient is a 68yo male with h/o CAD s/p CABG, HTN, DM presenting with progressive SOB and CONNELLY since . +ongoing tobacco use - 2ppd. No prior diagnosis of COPD or lung disease. On exam patient is afebrile, tachycardic and hypertensive. BiPAP in place. Able to answer questions and follow commands. Oriented to self only. Skin - intact, no rash HEENT - MMM, Neck supple, No JVD Heart - +S1/S2, regular, no m/r/g Lungs - diminished breath sounds bilaterally, some rhonchi present in right uppe r lung field, no wheezing, no crackles Abd - Soft, NT/ND Ext- warm, well perfused Labs and images reviewed Biofire is negative Lactate improving 5.7 --> 2.4 Troponin stable 96.3 --> 97.2 CT of the chest has since been complete and read - reading posted above. Patient hypoxic in the 70's in the ER, tachycardic. Initial VBG with 7.17/80/63. Patient placed on BiPAP in the ER - initially 10/5. Repeat ABG at 21:09 7.2/81/266. Patient's BiPAP settings increased to 15/5. Repeat ABG at 23:48 worse at 7/84/105. Patient was assessed at bedside. He was somnolent but arousable, able to answer some questions but confused. TVs in the 600's Patient with a large fox and notable air leak on BiPAP mask. Fox has been trimmed and mask refit. Will repeat ABG. If patient worsens/fails to improve will transfer to MICU for intubation and mechanical ventilation. Assessment and Plan - Acute respiratory failure with hypoxia and hypercarbia on rescue BiPAP with increasing demand. Possible pneumonitis vs chronic interstitial lung disease. Concern for possible inflammatory process vs neoplasm with RLL and left apical nodules. -Treatment with scheduled DuoNebs q 6 hours, Albuterol PRN -Will increase Solumedrol to 60mg IV TID -Sputum culture requested, blood cultures sent -Empiric coverage for CAP with Azithromycin and Ceftriaxone -Mucinex, Flutter valve and humidified O2 -Suction as needed -Pulmonary Consultation appreciated -Suspect lactate elevation more from hypoxia and increased work of breathing than sepsis -No history of CHF - will check echo, trend troponin -Glycemic management consultation appreciated - DM, hyperglycemia on IV steroids -Remainder of plan as above PG Care Time/CCT Total # of Minutes Spent Total Time Spent with Patient: Total time spent is greater than 50% in coordination of care (as documented) at patient's floor/unit and/or counseling patient: [place] [address] INT INP/OBS CARE 375MIN Patient Type Established Medical Decision Making High Complexity Diagnoses Acute respiratory failure with hypoxia and hypercapnia J96.01; J96.02 Sepsis A41.9 Tobacco abuse Z72.0 Hypomagnesemia E83.42 Fall W19.XXXA DM2 (diabetes mellitus, type 2) E11.9 Hypertension I10 Anxiety F41.9 MCI (mild cognitive impairment) with memory loss G31.84 CAD (coronary artery disease) I25.10 Urinary incontinence R32
[2023-07-23 21:19] LABS: Adenovirus PCR Not Detected (NotDetected); Bordetella parapertussis PCR Not Detected (NotDetected); Bordetella pertussis PCR Not Detected (NotDetected); Chlamydia pneumoniae PCR Not Detected (NotDetected); Coronavirus 229E PCR Not Detected (NotDetected); Coronavirus CoV-2 (COVID19)PCR Not Detected (NotDetected); Coronavirus HKU1 PCR Not Detected (NotDetected); Coronavirus NL63 PCR Not Detected (NotDetected); Coronavirus OC43PCR Not Detected (NotDetected); Human Metapneumovirus PCR Not Detected (NotDetected); Influenza A PCR Not Detected (NotDetected); Influenza B PCR Not Detected (NotDetected); Mycoplasma pneumoniae PCR Not Detected (NotDetected); Parainfluenza Virus 1 PCR Not Detected (NotDetected); Parainfluenza Virus 2 PCR Not Detected (NotDetected); Parainfluenza Virus 3 PCR Not Detected (NotDetected); Parainfluenza Virus 4 PCR Not Detected (NotDetected); Respiratory Syncytial VirusPCR Not Detected (NotDetected); Rhinovirus/Enterovirus PCR Not Detected (NotDetected)
[2023-07-23 21:20] LABS: Base Excess ABG 1.2 mEq/L (-9-1.8); HCO3 ABG 32 mmol/L (19-24); Oxygen Saturation ABG 99.8 % (90-95); PCO2 ABG 81 mmHg (35-46); PO2 ABG 266 mmHg (80-95)
[2023-07-23 21:22] LABS: Allen Test Pos (Pos)
[2023-07-23] MEDS: OPTIRAY 350 500ml IV ONE (21:35)
[2023-07-23 22:15] LABS: Partial Thromboplastin Ratio 0.9; Partial Thromboplastin Time 26 Seconds (21-31); Prothrombin Time 11.3 Seconds (9.0-12.0)
[2023-07-23] MEDS ORDERED: GLUCAGON FOR INJ 1 MG VIAL SQ PRN (22:31)
[2023-07-23] MEDS ORDERED: ONDANSETRON INJ 2 MG/ML 2 ML VIAL IV PRN (22:31)
[2023-07-23] MEDS ORDERED: GLUCOSE 10 TAB/TUBE PO PRN (22:31)
[2023-07-23] MEDS ORDERED: ALBUTEROL HFA 8 GM INHALER INH PRN (22:31)
[2023-07-23] MEDS ORDERED: GLUCOSE 40% GEL 15 GM TUBE PO PRN (22:31)
[2023-07-23] MEDS ORDERED: DEXTROSE 50% 50 ML SYRINGE IV PRN (22:31)
[2023-07-23] MEDS ORDERED: ACETAMINOPHEN 325 MG TAB PO PRN (22:31)
[2023-07-23] MEDS ORDERED: CARBOHYDRATES FOR HYPOGLYCEMIA PO PRN (22:31)
[2023-07-23] MEDS ORDERED: PHARMACY GLYCEMIC MGMT CONSULT PRN (22:31)
--- NOTE | 2023-07-23 22:56 | CT Scan Report ---
Exam(s): CTA CHEST IV Amt: 78 ml opti 320 EXAM: CT Angiography Chest With Intravenous Contrast CLINICAL HISTORY: Reason for exam: PE. TECHNIQUE: Axial computed tomographic angiography images of the chest with intravenous contrast. CTDI is 40.94 mGy and DLP is 976.16 mGy-cm. Automated exposure control was utilized for the study. A dose lowering technique was utilized adhering to the principles of ALARA. MIP reconstructed images were created and reviewed. COMPARISON: None. FINDINGS: Limitations: Exam is limited due to motion/breathing artifact. Pulmonary arteries: Unremarkable. Normal enhancement of the pulmonary arteries with no filling defect to suggest pulmonary embolus. Aorta: Atherosclerotic disease of aorta with no dissection. Mild aneurysmal dilatation of the distal thoracic aorta measuring 3.1 x 3.1 cm. Lungs: There is diffuse interstitial prominence with scattered minimal groundglass pattern suggestive of interstitial lung disease versus diffuse pneumonitis. Findings are atypical for interstitial pulmonary edema although not excluded. There are small nodularities within the right lower lobe, largest measuring 9.3 mm. There is a small cavitary lesion in the left lung apex (image 113, series 3 measuring 7 mm). These could represent nonspecific inflammatory changes versus neoplasm. Minimal atelectasis of the lingular lobe. No mass. Pleural space: Unremarkable. No significant effusion. No pneumothorax. Heart: Unremarkable. No cardiomegaly. No significant pericardial effusion. No evidence of RV dysfunction. Normal cardiac size with coronary artery calcifications. Bones/joints: No acute fracture. No dislocation. Soft tissues: Unremarkable. Lymph nodes: Unremarkable. No enlarged lymph nodes. Liver: Abdominal structures revealed diffuse fatty liver otherwise unremarkable. Other findings: Multilevel degenerative disease of the spine. IMPRESSION: 1. No pulmonary embolus or aortic dissection. 2. Diffuse interstitial pneumonitis versus chronic interstitial lung disease. 3. Small right lower lobe and left apical nodularities which may indicate inflammatory process versus neoplasm. Recommend short interval CT examination at 3 months interval to evaluate resolution. Electronically signed by: Namrata Olmstead MD 07/23/23 22:55 PM
[2023-07-23] MEDS: AZITHROMYCIN 500 MG in DEXTROSE 5% 250 ML IV ONE (22:57)
[2023-07-23] MEDS: INSULIN ASPART PER UNIT CHARGE SC SCH (23:31)
[2023-07-23] MEDS: LORazepam 0.5 MG in SYRINGE 0.25 ML IV STA (23:31)
[2023-07-24 00:02] LABS: Base Excess ABG -0.4 mEq/L (-9-1.8); HCO3 ABG 31 mmol/L (19-24); Oxygen Saturation ABG 97.4 % (90-95); PCO2 ABG 84 mmHg (35-46); PO2 ABG 105 mmHg (80-95)
[2023-07-24 00:11] LABS: Allen Test Pos (Pos)
[2023-07-24 00:12] LABS: pH ABG 7.17 (7.35-7.45)
[2023-07-24] MEDS: ALBUT/IPRATROP 3MG/0.5MG NEB 3 ML VIAL INH SCH (01:08)
[2023-07-24 03:14] LABS: Base Excess ABG 2.8 mEq/L (-9-1.8); HCO3 ABG 33 mmol/L (19-24); Oxygen Saturation ABG 99.7 % (90-95); PCO2 ABG 81 mmHg (35-46); PO2 ABG 166 mmHg (80-95); pH ABG 7.22 (7.35-7.45)
[2023-07-24 03:20] LABS: Allen Test Pos (Pos)
[2023-07-24 03:39] LABS: BUN Creatinine Ratio 23.5 (10-20); Calcium 9.4 mg/dl (8.6-10.3); Creatinine Clr Calc Pharmacy 71.3 ml/min; Est GFR (African American) 71.8 ml/min; Magnesium 2.4 mg/dl (1.7-2.4); Potassium 4.5 mmol/L (3.5-5.1)
[2023-07-24 03:50] LABS: Basophils # (auto) 0.06 K/uL (0.00-0.20); Basophils % (auto) 0.5 %; Dohle Bodies 1+; Echinocytes 1+; Eosinophils # (auto) 0.03 K/uL (0.00-0.50); Eosinophils % (auto) 0.2 %; Hematocrit (blood only) 49.7 % (42.0-52.0); Hemoglobin 15.6 g/dl (14.0-18.0); Immature Granulocytes # (auto) 0.06 K/uL (0.01-0.20); Immature Granulocytes % (auto) 0.5 %; Mean Corpuscular Hemoglobin 29.3 pg (25.0-34.0); Mean Corpuscular Hgb Conc 31.4 g/dL (32.0-36.0); Mean Corpuscular Volume 93.4 fL (80.0-100.0); Mean Platelet Volume 10.3 fL (9.4-12.4); Monocytes # (auto) 0.99 K/uL (0.11-0.59); Monocytes % (auto) 7.7 %; Neutrophils # (auto) 10.83 K/uL (1.40-6.50); Neutrophils % (auto) 84.1 %; Nucleated RBC # (auto) 0.05 K/uL (0.00-0.12); Nucleated RBC % (auto) 0.4 %; Platelet Count 270 K/uL (130-400); Polychromasia 1+; RDW Coefficient of Variation 14.7 % (11.5-14.5); RDW Standard Deviation 50.9 fL (36.4-46.3); Red Blood Count 5.32 M/uL (4.70-6.10); Toxic Vacuolation 1+; White Blood Count 12.87 K/ul (4.8-10.8)
[2023-07-24 03:51] LABS: Troponin I High Sensitivity 98.9 pg/ml (0-20)
[2023-07-24] MEDS: INSULIN ASPART PER UNIT CHARGE SC ONE (04:11)
[2023-07-24 05:46] LABS: Base Excess ABG 4.9 mEq/L (-9-1.8); HCO3 ABG 34 mmol/L (19-24); Oxygen Saturation ABG 98.5 % (90-95); PCO2 ABG 75 mmHg (35-46); PO2 ABG 99 mmHg (80-95); pH ABG 7.27 (7.35-7.45)
[2023-07-24 05:58] LABS: Allen Test Pos (Pos)
--- OUTSIDE RECORDS SUMMARY | 2023-07-24 07:39 | External Medical Summary | Continuity of Care Document ---
Author Name Unknown Organization [facility] [address] Address [address] [place], [place] [id number] Care Team Providers Care Land Economist Name Role Phone Leslie Lind Primary Care lana [phone] [facility] [id number] Date(s): 07/03/23 - 07/03/23 [facility] [address] [facility] [address], [facility] 1 [place], [place] [phone] Encounter Diagnosis Type 2 diabetes mellitus without complications(Final) - Atherosclerosis of coronary artery bypass graft(s) without angina pectoris (Final) - Hyperlipidemia, unspecified(Final) - Essential (primary) hypertension(Final) - Tobacco use(Final) - Discharge Disposition: Home or Self Care Attending Physician: Stormy Billingsley DO, Mariana Annette Referring Physician: Stormy Billingsley DO, Mariana Annette Allergies, Adverse Reactions, Alerts No Known Allergies Immunizations Given and Recorded Vaccine Date Status Refusal Reason influenza virus vaccine, inactivated 1 04/05/22 Gi ezequiel influenza virus vaccine, inactivated 04/12/21 Naman rded zoster vaccine, inactivated 05/13/21 Recorded tetanus/diphtheria/pertuss, acel (Tdap) 04/12/21 R ecorded pneumococcal 23-valent vaccine 03/29/21 Recorded SARS-CoV-2 mRNA (yangojcimei-wkjy-gxl) 2 02/15/21 Recorded SARS-CoV-2 (COVID-19) mRNA BNT-162b2 vax 08/12/20 Recorded SARS-CoV-2 (COVID-19) mRNA BNT-162b2 vax 07/22/20 Recorded 1Result Comment: Kimberley Queen Rn 2Result Comment: booster Medications aspirin 81 mg oral capsule Start: 10/09/22 15:14:00 EDT, 1 cap, PO, q24h, takes with am medications Start Date: 10/09/22 Status: Ordered atorvastatin 40 mg oral tablet Start: 07/05/23 10:56:00 EST, See Instructions, Disp# 90 tab, Refills: 3, TAKE 1 TABLET BY MOUTH ONCE DAILY IN THE MORNING, Pharmacy: [facility] Start Date: 07/05/23 Status: Ordered celecoxib 100 mg oral capsule Start: 06/11/23 7:54:00 EST, 1 cap, PO, bid, Disp# 60 cap, Refills: 3, Pharmacy: [facility] Start Date: 06/11/23 Status: Ordered celecoxib 100 mg oral capsule Start: 02/14/23 12:11:00 EDT, See Instructions, Disp# 60 cap, Refills: 3, TAKE 1 CAPSULE BY MOUTH TWICE DAILY WITH FOOD, Pharmacy: [facility] Start Date: 02/14/23 Status: Ordered escitalopram 20 mg oral tablet Start: 08/03/22 19:25:00 EDT, See Instructions, Disp# 90 tab, Refills: 3, TAKE 1 TABLET BY MOUTH ONCE DAILY IN THE MORNING, Pharmacy: [facility] Start Date: 08/03/22 Status: Ordered Jardiance 10 mg oral tablet Start: 07/04/23 17:17:00 EST, 1 tab, PO, qAM, Disp# 30 tab, Refills: 3, Pharmacy: [facility] Start Date: 07/04/23 Status: Ordered lisinopril 5 mg oral tablet Start: 12/22/22 8:45:00 EDT, See Instructions, Disp# 90 tab, Refills: 3, TAKE 1 TABLET BY MOUTH ONCE DAILY IN THE MORNING, Pharmacy: [facility] Start Date: 12/22/22 Status: Ordered MetFORMIN (Eqv-Glucophage XR) 500 mg oral tablet, extended release Start: 02/14/23 12:13:00 EDT, 2 tab, PO, Daily, Disp# 180 tab, Refills: 3, Take 2 tabs daily with largest meal of the day, Pharmacy: [facility] Start Date: 02/14/23 Stop Date: 02/09/24 Status: Ordered Metoprolol Succinate ER 25 mg oral tablet, extended release Start: 12/22/22 8:45:00 EDT, See Instructions, Disp# 90 tab, Refills: 3, TAKE 1 TABLET BY MOUTH ONCE DAILY IN THE MORNING, Pharmacy: [facility] Start Date: 12/22/22 Status: Ordered mirtazapine 45 mg oral tablet Start: 07/04/23 17:17:00 EST, 1 tab, PO, qPM, Disp# 30 tab, Refills: 2, Pharmacy: [facility] Start Date: 07/04/23 Status: Ordered Nitrostat 0.4 mg sublingual tablet Start: 09/28/20 15:24:00 EDT Start Date: 09/28/20 Status: Ordered omeprazole 40 mg oral delayed release capsule Start: 08/03/22 19:24:00 EDT, See Instructions, Disp# 90 cap, Refills: 3, TAKE ONE CAPSULE IN THE EVENING, Pharmacy: [facility] Start Date: 08/03/22 Status: Ordered Voltaren 1% topical gel Start: 06/27/23 15:17:00 EST, 1 appl, topical, qid, Disp# 100 g, Refills: 3, PRN: Pain, Pharmacy: [facility] Start Date: 06/27/23 Status: Ordered Problem List Condition Confirmation Course Effective Dates Status H ealth Status Informant CAD (coronary artery disease) of bypass graft Confirmed Active Diabetes mellitus Confirmed Active Diabetic nutritional counseling completed Confirmed Active Hyperlipidemia Confirmed Active Hypertension Confirmed Active Brain aneurysm Confirmed Active Encounter for annual wellness visit (AWV) in Medicare patient Confirmed Active Tobacco user Confirmed Active Procedures Procedure Date Related Diagnosis Body Site Status Aneurysm 1 Completed CABG x 4 - Coronary artery b ypass grafts x 4 Completed 1Brain 2016 and 2017 surgical resolve Results Laboratory List Name Date Microalbumin, Urine, Random (MICROALBUMI N, RD UR) 07/03/23 Comprehensive Metabolic Panel (COMP META B PANEL) 07/03/23 Hemoglobin A1C (HEMOGLOBIN, A1C) 07/03/23 Lipid Profile (LIPOPROTEINS) 07/03/23 Microalbumin, Urine, Random (MICROALBUMI N, RD UR) 07/03/23 Most recent to oldest [Refer ence Range]: 1 2 eGFR CKD-EPI [>60 mL/min/1.73 m2] >90 mL /min/1.73 m2 1 (07/03/23 1:47 PM) Estimated Average Glucose 154 mg/dL (07/03/23 1:47 PM) Non-HDL 135 mg/dL 2 (07/03/23 1:47 PM) Estimated CrCl 104.77 mL/min (07/03/23 2:45 PM) Micro Alb (u) [<2.00 mg/dL] 55.28 mg/dL *HI* (07/03/23 4:30 PM) PT UNABLE TO GICE SAMPLE mg/dL (07/03/23 1:47 PM) Anion Gap [5-14 mmol/L] 6 mmol/L (07/03/23 1:47 PM) Alb [3.5-5.0 g/dL] 4.3 g/dL (07/03/23 1:47 PM) Alk Phos [38-126 unit/L] 79 unit/L (07/03/23 1:47 PM) ALT [<50 unit/L] 31 unit/L (07/03/23 1:47 PM) AST [15-46 unit/L] 33 unit/L (07/03/23 1:47 PM) BUN [7-20 mg/dL] 10 mg/dL (07/03/23 1:47 PM) Ca [8.4-10.2 mg/dL] 9.3 mg/dL (07/03/23 1:47 PM) Chol/HDL 5 (07/03/23 1:47 PM) Chol [125-200 mg/dL] 168 mg/dL (07/03/23 1:47 PM) Cl- [96-107 mmol/L] 103 mmol/L (07/03/23 1:47 PM) HCO3 [22-30 mmol/L] 33 mmol/L *HI* (07/03/23 1:47 PM) Cret [0.70-1.30 mg/dL] 0.81 mg/dL (07/03/23 1:47 PM) HbA1c [<5.7 %] 7.0 % 3 *HI* (07/03/23 1:47 PM) Glu [74-106 mg/dL] 142 mg/dL *HI* (07/03/23 1:47 PM) HDL [>35 mg/dL] 33 mg/dL *LOW* (07/03/23 1:47 PM) K [3.5-5.1 mmol/L] 4.2 mmol/L (07/03/23 1:47 PM) LDL Chol, Calculated [50-130 mg/dL] 86 mg/dL (07/03/23 1:47 PM) Micro Alb Ratio [<20 ug/mg cret] 311 ug/ mg cret *HI* (07/03/23 4:30 PM) PT UNABLE TO GICE SAMPLE ug/mg cret 4 (07/03/23 1:47 PM) Na [137-145 mmol/L] 142 mmol/L (07/03/23 1:47 PM) T Bili [0.2-1.3 mg/dL] 0.8 mg/dL (07/03/23 1:47 PM) Prot [6.3-8.2 g/dL] 7.8 g/dL (07/03/23 1:47 PM) TG [<200 mg/dL] 247 mg/dL *HI* (07/03/23 1:47 PM) Creat (u) 177.49 mg/dL 5 (07/03/23 4:30 PM) PT UNABLE TO GICE SAMPLE mg/dL (07/03/23 1:47 PM) 1Result Comment: Testing Performed By: Dept of Pathology [facility] [address], [address] [place] [address], [place] [address] 2Result Comment: Testing Performed By: Dept of Pathology [facility] [address], [address] [facility] [place] [facility] [place] [address] 3Result Comment: ADA Recommended [place] Reference Range: Normal: <5.7% Prediabetes: 5.7-6.4% Diabetes: >6.4% 4Result Comment: Testing Performed By: Dept of Pathology [facility] Miramartobi Burns, [address] [facility] [place] [facility] [place] [address] 5Result Comment: Reference Range for Random Urine Not Established. Social History Social History Type Response Tobacco Current every day sm oker, Cigarettes, 53 year(s). 1 Smoking Status Current every day he radha smoker Sex Male 1Current 2 PPD Patient Care team information Care Team Personnel Name: Stormy Billingsley DO, Mariana Annette Position: Physician - Family Med Member Role: Primary Care Provider Address: Address: [address] [address] [place] Name: Cira Lorenzo Position: HIS Supervisor_P Member Role: HIS Lifetime Care Team Related Persons Name: KRISHAN SAUCEDA
--- OUTSIDE RECORDS SUMMARY | 2023-07-24 07:39 | External Medical Summary | Continuity of Care Document ---
Author Name Unknown Organization [address] Address [address] [place] [phone] Care Team Providers Care Oracle Applications Developer Name Role Phone Leslie Lind Primary Care hysician [phone] Encounter [facility] [id number] Date(s): 06/27/23 - 06/27/23 [facility] [address] [place] [address], [address] [address] [place] [phone] Encounter Diagnosis Diabetes mellitus(Discharge Diagnosis) - 06/27/23 CAD (coronary artery disease) of bypass graft(Discharge Diagnosis) - 06/27/23 Hyperlipidemia(Discharge Diagnosis) - 06/27/23 Hypertension(Discharge Diagnosis) - 06/27/23 Tobacco user(Discharge Diagnosis) - 06/27/23 Discharge Disposition: Home or Self Care Attending Physician: Stormy Billingsley DO, Mariana Annette Referring Physician: Stormy Billingsley DO, Mariana Annette Allergies, Adverse Reactions, Alerts No Known Allergies Assessment and Plan Extracted from: Title:Office Visit Note Author:Stormy Billingsley DO, Mariana Annette Date:06/27/23 1.Diabetes mellitus STATUS:Chronic stable. DATA:Labs reviewed. GOAL:Maintain stability. PLAN:recheck labs. Continue metformin 100mg BID and jardiance 10mg Discussed diet changes and pt will try decreasing carb intake. He does not want to stop drinking soda. Discussed increased water intake. 2.CAD (coronary artery disease) of bypass graft STATUS:Chronic stable. DATA:Labs reviewed. GOAL:Maintain stability. PLAN:cont lipitor 40mg, recheck lipid panel 3.Hyperlipidemia as above 4.Hypertension STATUS:Chronic stable. DATA:Labs reviewed. GOAL:Maintain stability. PLAN:Cont lisinopril 5mg, metoprolol 25mg 5.Tobacco user Discussed tobacco cessation with patient today. Pre-contemplative. Immunizations Given and Recorded Vaccine Date Status Refusal Reason influenza virus vaccine, inactivated 1 04/05/22 Gi ezequiel influenza virus vaccine, inactivated 04/12/21 Naman rded zoster vaccine, inactivated 05/13/21 Recorded tetanus/diphtheria/pertuss, acel (Tdap) 04/12/21 R ecorded pneumococcal 23-valent vaccine 03/29/21 Recorded SARS-CoV-2 mRNA (pabmwibjnqt-ipmn-yhq) 2 02/15/21 Recorded SARS-CoV-2 (COVID-19) mRNA BNT-162b2 vax 08/12/20 Recorded SARS-CoV-2 (COVID-19) mRNA BNT-162b2 vax 07/22/20 Recorded 1Result Comment: Kimberley Queen Rn 2Result Comment: booster Medications aspirin 81 mg oral capsule Start: 10/09/22 15:14:00 EDT, 1 cap, PO, q24h, takes with am medications Start Date: 10/09/22 Status: Ordered atorvastatin 40 mg oral tablet Start: 08/03/22 19:25:00 EDT, See Instructions, Disp# 90 tab, Refills: 3, TAKE 1 TABLET BY MOUTH ONCE DAILY IN THE MORNING, Pharmacy: [facility] Start Date: 08/03/22 Status: Ordered celecoxib 100 mg oral capsule Start: 06/11/23 7:54:00 EST, 1 cap, PO, bid, Disp# 60 cap, Refills: 3, Pharmacy: [facility] Start Date: 06/11/23 Status: Ordered celecoxib 100 mg oral capsule Start: 02/14/23 12:11:00 EDT, See Instructions, Disp# 60 cap, Refills: 3, TAKE 1 CAPSULE BY MOUTH TWICE DAILY WITH FOOD, Pharmacy: [facility] Start Date: 02/14/23 Status: Ordered escitalopram 20 mg oral tablet Start: 08/03/22 19:25:00 EDT, See Instructions, Disp# 90 tab, Refills: 3, TAKE 1 TABLET BY MOUTH ONCE DAILY IN THE MORNING, Pharmacy: [facility] Start Date: 08/03/22 Status: Ordered Jardiance 10 mg oral tablet Start: 03/13/23 17:06:00 EST, 1 tab, PO, qAM, Disp# 30 tab, Refills: 3, Pharmacy: [facility] Start Date: 03/13/23 Status: Ordered lisinopril 5 mg oral tablet Start: 12/22/22 8:45:00 EDT, See Instructions, Disp# 90 tab, Refills: 3, TAKE 1 TABLET BY MOUTH ONCE DAILY IN THE MORNING, Pharmacy: [facility] Start Date: 12/22/22 Status: Ordered MetFORMIN (Eqv-Glucophage XR) 500 mg oral tablet, extended release Start: 02/14/23 12:13:00 EDT, 2 tab, PO, Daily, Disp# 180 tab, Refills: 3, Take 2 tabs daily with largest meal of the day, Pharmacy: [facility] Start Date: 02/14/23 Stop Date: 02/09/24 Status: Ordered Metoprolol Succinate ER 25 mg oral tablet, extended release Start: 12/22/22 8:45:00 EDT, See Instructions, Disp# 90 tab, Refills: 3, TAKE 1 TABLET BY MOUTH ONCE DAILY IN THE MORNING, Pharmacy: [facility] Start Date: 12/22/22 Status: Ordered mirtazapine 45 mg oral tablet Start: 04/11/23 13:46:00 EST, 1 tab, PO, qPM, Disp# 30 tab, Refills: 2, Pharmacy: [facility] Start Date: 04/11/23 Status: Ordered Nitrostat 0.4 mg sublingual tablet Start: 09/28/20 15:24:00 EDT Start Date: 09/28/20 Status: Ordered omeprazole 40 mg oral delayed release capsule Start: 08/03/22 19:24:00 EDT, See Instructions, Disp# 90 cap, Refills: 3, TAKE ONE CAPSULE IN THE EVENING, Pharmacy: [facility] Start Date: 08/03/22 Status: Ordered Voltaren 1% topical gel Start: 06/27/23 15:17:00 EST, 1 appl, topical, qid, Disp# 100 g, Refills: 3, PRN: Pain, Pharmacy: [facility] Start Date: 06/27/23 Status: Ordered Mental Status 06/27/23 Barriers to Learning one year None evide nt Mandatory Health Literacy Documentation Yes Health Literacy Communication Barriers N ever Primary Language Kinyarwanda Problem List Condition Confirmation Course Effective Dates Status H ealth Status Informant CAD (coronary artery disease) of bypass graft Confirmed Active Diabetes mellitus Confirmed Active Diabetic nutritional counseling completed Confirmed Active Hyperlipidemia Confirmed Active Hypertension Confirmed Active Brain aneurysm Confirmed Active Encounter for annual wellness visit (AWV) in Medicare patient Confirmed Active Tobacco user Confirmed Active Diagnosis Diagnosis Type Effective Dates Health Status Clinical Service Informant CAD (coronary artery disease) of bypass graft Discharge Diagnosis 06/27/23 Tobacco user Discharge Diagnosis 06/27/23 Diabetes mellitus Discharge Diagnosis 06/27/23 Hyperlipidemia Discharge Diagnosis 06/27/23 Hypertension Discharge Diagnosis 06/27/23 Procedures Procedure Date Related Diagnosis Body Site Status Aneurysm 1 Completed CABG x 4 - Coronary artery b ypass grafts x 4 Completed 1Brain 2016 and 2017 surgical resolve Vital Signs Most recent to oldest [Reference Range]: 1 Height 178.5 cm (06/27/23 3:06 PM) Patient Weight 104.7 kg (06/27/23 3:06 PM) Body Mass Index 32.86 kg/m2 (06/27/23 3:06 PM) Temperature [36.5-37.9 DegC] 36.8 DegC (06/27/23 3:06 PM) Blood Pressure 90/62mmHg (06/27/23 3:06 PM) Cuff Pulse Pressure 28 mmHg (06/27/23 3:06 PM) Social History Social History Type Response Tobacco Current every day sm oker, Cigarettes, 53 year(s). 1 Smoking Status Current every day he radha smoker Sex Male 1Current 2 PPD FCM Outpt Note * Stormy Billingsley DO, Mariana Annette: PERFORM Event Display: FCM Outpt Note Authored Date: [id number] Chief Complaint pt is here for 6 month f/u. would like to diskuss b/l knee pain especially at night. having trouble sleeping History of Present Illness presents for chronic condition management Diabetes Type II,controlled with comorbid disease- microalbuminuria - current regimen includes: metformin 1000 mg daily, jardiance -on statin therapy and ACEi/ARB per medication list - adherent to present medication regimen - dietary review: pork chops, canned soups, fries. Microwave meals. Does not cook much. 2 sodas perday. No water - exercise regimen: goes on walks - Labs inAug 2022 - microalbuminuria, A1C 7.1 HTN - does not check at home. - denies CP, SOB, blurry vision, headaches Smokes 2 PPD. Pre-contemplative. Knee pain - mostly at night, hurting all through the front. Has been on celebrex. Physical Exam Vitals & Measurements T:36.8C BP:90/62 SpO2:93% HT:178.5cm WT:104.700kg(Dosing) WT:104.7kg BMI:32.86 PHQ2 Data(Data Documented on:06/27/2023 15:00) Emotional health assessment NEGATIVE General: _Alert and oriented, No acute distress Cardiovascular: _Normal rate, Regular rhythm, No murmur, No gallop. Respiratory: _Lungs are clear to auscultation, Respirations are non-labored, Breath sounds are equal Psych: Mood-affect congruence. Reports no SI/HI. Speech is of normal pace and content Assessment/Plan 1.Diabetes mellitus STATUS:Chronic stable. DATA:Labs reviewed. GOAL:Maintain stability. PLAN:recheck labs. Continue metformin 100mg BID and jardiance 10mg Discussed diet changes and pt will try decreasing carb intake. He does not want to stop drinking soda. Discussed increased water intake. 2.CAD (coronary artery disease) of bypass graft STATUS:Chronic stable. DATA:Labs reviewed. GOAL:Maintain stability. PLAN:cont lipitor 40mg, recheck lipid panel 3.Hyperlipidemia as above 4.Hypertension STATUS:Chronic stable. DATA:Labs reviewed. GOAL:Maintain stability. PLAN:Cont lisinopril 5mg, metoprolol 25mg 5.Tobacco user Discussed tobacco cessation with patient today. Pre-contemplative. Attestation Time spent: Pre-visit planning: _5 Frde-fr-zmam visit: _25 Post-visit (orders/documentation/coordination of care):5 Total visit time: _35 Problem List/Past Medical History Ongoing Brain aneurysm CAD (coronary artery disease) of bypass graft Diabetes mellitus Diabetic nutritional counseling completed Encounter for annual wellness visit (AWV) in Medicare patient Hyperlipidemia Hypertension Tobacco user Procedure/Surgical History AneurysmCABG x 4 - Coronary artery bypass grafts x 4 Medications aspirin(aspirin 81 mg oral capsule), 81 mg= 1 cap, PO, q24h atorvastatin(atorvastatin 40 mg oral tablet), See Instructions celecoxib(celecoxib 100 mg oral capsule), 1 cap, PO, bid celecoxib(celecoxib 100 mg oral capsule), See Instructions, 3 refills diclofenac topical(Voltaren 1% topical gel), 1 appl, topical, qid, PRN, 3 refills empagliflozin(Jardiance 10 mg oral tablet), 1 tab, PO, qAM escitalopram(escitalopram 20 mg oral tablet), See Instructions lisinopril(lisinopril 5 mg oral tablet), See Instructions, 3 refills metFORMIN(MetFORMIN (Eqv-Glucophage XR) 500 mg oral tablet, extended release), 1000 mg= 2 tab, PO, Daily, 3 refills metoprolol(Metoprolol Succinate ER 25 mg oral tablet, extended release), See Instructions, 3 refills mirtazapine(mirtazapine 45 mg oral tablet), 1 tab, PO, qPM nitroglycerin(Nitrostat 0.4 mg sublingual tablet) omeprazole(omeprazole 40 mg oral delayed release capsule), See Instructions Allergies NKA Social History Smoking Status Current every day heavy smoker Alcohol - Denies Alcohol Use Use:Past - Comments: Last drank alcohol 25 years ago in 1998 Substance Abuse - Low Risk Use:Current Type:Marijuana Frequency:Daily - Comments: Helps sleep well at night. Helps appetite Tobacco - High Risk Use:Current every day smoker Type:Cigarettes Number of years:53 - Comments: Current 2 PPD Family History Cancer: Mother. Prostate carcinoma: Father. Health Status Family Member(s) Immunizations Vaccine Date Status influenza virus vaccine, inactivated 04/05/2022 Given Comments : Kimberley Queen Rn zoster vaccine, inactivated 05/13/2021 Recorded tetanus/diphtheria/pertuss, acel (Tdap) 04/12/2021 Recorded influenza virus vaccine, inactivated 04/12/2021 Recorded pneumococcal 23-valent vaccine 03/29/2021 Recorded SARS-CoV-2 mRNA (zxcnizatziv-zzng-okm) 02/15/2021 Recorded Comments : booster SARS-CoV-2 (COVID-19) mRNA BNT-162b2 vax 08/12/2020 Recorded SARS-CoV-2 (COVID-19) mRNA BNT-162b2 vax 07/22/2020 Recorded Recommendations Health Maintenance Pending(in the next year) OverDue Adult Influenza Vaccine due10/27/22and every 1year Medicare Annual Wellness Visit due12/14/22and every 1year Due Diabetic Eye Exam due05/25/23and every 731day Adult COVID-19 Vaccination due06/27/23Unknown Frequency Adult Social Determinants of Health Screening due06/27/23Unknown Frequency Colorectal Cancer Screening due06/27/23Unknown Frequency Hepatitis C Screening due06/27/23One-time only Shingles Vaccine due06/27/23One-time only Due In Future Diabetes Management A1c not due until12/27/23and every 366day Satisfied(in the past 1 year) Satisfied Body Mass Index on06/27/23.Satisfied by ROMEO De La Torre Carli Diabetes Management A1c on12/26/22.Satisfied by Contributor_system, [id number] Diabetes Nephropathy Management on12/26/22.Satisfied by Contributor_system, [email or web address] Lipid Screening on10/10/22.Satisfied by Contributor_system, [email or web address] Electronic Signature on File Electronically Reviewed/Signed by: Leslie Billingsley DO Author Signature Dt/Tm:06/27/2023 03:39 PM Department of Family Medicine [facility] Patient Care team information Care Team Personnel Name: Stormy Billingsley DO, Mariana Annette Position: Physician - Family Med Member Role: Primary Care Provider Address: Address: [address] [place] [address] Name: Cira Lorenzo Position: HIS Supervisor_P Member Role: HIS Lifetime Care Team Related Persons Name: KRISHAN SAUCEDA
--- NOTE | 2023-07-24 07:44 | Pulmonary Consultation ---
Date of Consultation July 24, 2023 Assessment & Plan (1) Acute respiratory failure with hypoxia and hypercapnia: (2) Acute on chronic respiratory acidosis: (3) Tobacco abuse: (4) SOB (shortness of breath): (5) COPD with emphysema: Plan CT chest 07/23/2023 personally reviewed: Minimal centrilobular emphysema appreciated bilaterally Tree-in-bud opacities appreciated in upper and lower lobes more pronounced in the lower lobes Motion degraded study Minimal mediastinal lymphadenopathy ABG 07/23/2023: 7.17/84/105 on 50% -- Acute hypercapnic hypoxic respiratory failure Likely secondary to COPD exacerbation Procalcitonin 0.42, nasal MRSA negative Respiratory bio fire negative for everything --COPD with emphysema Not on any standing inhalers at home Would recommend Trelegy 100 or BrezTri on discharge --Active smoker > [id number] smoking history Positive quitting explained to the patient in depth --Probable FAY/OHS Recommend outpatient polysomnography -- For diffuse tree-in-bud opacities would recommend repeat CT chest to be done in 3 months Plan: Add Brovana and budesonide to the regimen along with hypertonic saline and flutter valve Keep O2 saturation between 88-92%, do not or oxygenate the patient BiPAP nightly and as needed shortness of breath Case was discussed with primary team Due to chronic respiratory failure consequent to COPD, patient now requires a noninvasive home ventilator. Bilevel therapy with and without a rate would be ineffective as patient requires a volume targeted mode. Ventilation is required to decrease work of breathing and improve pulmonary status. Interruption of ventilator support would lead to decline of health status. COPD causing recurrent hypercapnic respiratory failure with a PaCo2 of 84 --> 75 with BiPAP. Patient would benefit greatly from noninvasive ventilation which would improve lung function and potentially reduce worsening of symptoms. A BiPAP would be ineffective as patient requires a volume targeted mode. Interruption of ventilator support would lead to a decline of health status. NIMV settings should be AVAPS-AE; Breath rate: auto; Inspiratory time:auto; Sigh: off; Tidal Volume: 350-450, PS min: 4-10 PS max: 12-20; EPAP min: 6-10; EPAP max: 10-16; AVAPS rate: 14 during sleep and as needed Please note the above document was generated using voice recognition software. It may contain grammatical, syntax or spelling errors.Any formal questions or concerns about the content, text or information contained within the body of this dictation should be directly addressed to the provider for clarification. History of Present Illness Attending Physician: Raúl Coker MD History of Present Illness 68-year-old male presented to hospital with complaints of shortness of breath and cough Past medical history:Coronary artery disease, hypertension, CABG, anxiety/depression, diabetes Pulmonary consulted for ventilatory failure At the time of examination patient was off BiPAP, he was saturating 86-97% on room air. He was awake alert and oriented. Answering all the questions appropriately Complaint of chest tightness. Cough with difficulty bringing up the phlegm Denies any headache, blurry vision Remdesivir, no diarrhea. Actually was asking if he can go home. 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 No history of lung cancer in the family Allergies Allergy/AdvReac Type Severity Reaction Status Date / Time sulfamethoxazole AdvReac Intermediate Dizziness Verified 07/23/23 20:04 trimethoprim AdvReac Intermediate Dizziness Verified 07/23/23 20:04 Home Medications Medication Instructions Recorded Confirmed Type acetaminophen 500 mg tablet 1,000 mg PO DIRECTED PRN Pain 04/29/19 07/23/23 History (Tylenol Extra Strength) metformin 500 mg tablet 500 mg PO BID #60 tabs 08/02/20 07/23/23 Rx escitalopram oxalate 20 mg tablet 20 mg PO QAM 09/19/20 07/23/23 History mirtazapine 45 mg tablet 45 mg PO QPM 09/19/20 07/23/23 History atorvastatin 40 mg tablet 40 mg PO QAM #90 tabs 02/27/22 07/23/23 Rx lisinopril 5 mg tablet 5 mg PO QAM #90 tabs 02/27/22 07/23/23 Rx metoprolol succinate 25 mg 25 mg PO QAM #90 tabs 02/27/22 07/23/23 Rx tablet,extended release 24 hr aspirin 81 mg tablet,delayed 81 mg PO DAILY #90 tabs 01/17/23 07/23/23 Rx release celecoxib 100 mg capsule (Celebrex) 100 mg PO BID 07/23/23 07/23/23 History empagliflozin 10 mg tablet 10 mg PO QAM 07/23/23 07/23/23 History (Jardiance) omeprazole 40 mg capsule,delayed 40 mg PO QPM 07/23/23 07/23/23 History release Patient History Medical History DM2 (diabetes mellitus, type 2) diagnosed 07/01/2020 with A1C of 8.0 Squamous cell carcinoma Postoperative atrial fibrillation MCI (mild cognitive impairment) with memory loss Insomnia Depression due to physical illness Cerebral arterial aneurysm CAD (coronary artery disease) Anxiety Surgical History History of tonsillectomy History of intracranial aneurysm 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 History of coronary artery bypass graft Family History Mother Cancer Sister Cancer of the brain Father Prostate cancer Denies family history of Ovarian cancer Myocardial infarction Breast cancer Colorectal cancer Social History Smoking Status: Current every day smoker Tobacco Type: Cigarettes packs per day: 1.5; Cigarettes Per Day: 40; Do You Dip or Chew Tobacco: No; Hx Alcohol Use: No Hx Substance Use: Yes Last Used Substance: Days (ago) Last Used Substance Other:: 07/20/23 Preferred Language: Czech Communication Ability: Effective Recruiting Consultant Required: No Beliefs That Will Affect Care: None marital status: Single Current Living Situation: Alone current occupational status: retired Feels Safe at Home: Yes Safety Concerns: Feels Safe At This Time caffeine: Yes Dental Care, Regularly: No Physical Activity Frequency: Does not Exercise Seatbelt Use: always Sunscreen Use: No Assistive Devices: None Review of Systems 2 Review of Systems: All systems reviewed & are unremarkable except as noted in HPI & below Physical Exam 2 Physical Exam: Constitutional: No acute distress HEENT: EOMI, PERRLA Respiratory system: Decreased air entry bilaterally, positive rhonchi, positive expiratory wheeze, positive crackles bilateral lower lobes CVS: S1-S2 positive, no murmurs or gallops Abdomen: Soft, nontender, nondistended, positive bowel sounds x4, obese Extremities: +2 pulses bilaterally radialis/ dorsalis pedis, no cyanosis, m inimal pitting edema bilateral lower extremity Neuro: Awake alert oriented x3 Psych: Normal mood and affect G/U: No [place] Skin: no rashes, warm and dry Lymphatic: no cervical or axillary lymphadenopathy Results & Data Results & Data Vital Signs (Past 12 Hours) Vital Signs Temp Pulse Pulse Resp BP BP Pulse Ox 07/24/23 07:10 78 20 98 07/24/23 04:10 84 20 97/62 L 96 07/24/23 03:00 07/24/23 03:00 36.4 C L 87 24 109/74 98 07/24/23 00:50 90 22 91 07/24/23 00:35 89 23 96 07/23/23 23:44 110 H 07/23/23 23:16 07/23/23 22:36 36.5 C 110 H 22 150/88 H 91 07/23/23 22:31 36.5 C 110 H 23 150/88 H 91 07/23/23 21:43 118 H 19 171/97 H 95 07/23/23 21:00 121 H 117/85 97 07/23/23 20:32 126/105 H 97 07/23/23 20:15 97 07/23/23 20:00 123 H 136/100 96 07/23/23 19:45 135 H 154/91 H 91 07/23/23 19:44 124 H 30 H 97 O2 Del Method O2 Flow Rate FiO2 07/24/23 07:10 Nasal Cannula 5 07/24/23 04:10 BiPAP 55 07/24/23 03:00 55 07/24/23 03:00 BiPAP 07/24/23 00:50 BiPAP 50 07/24/23 00:35 40 07/23/23 23:44 07/23/23 23:16 BiPAP 50 07/23/23 22:36 BiPAP 07/23/23 22:31 BiPAP 07/23/23 21:43 07/23/23 21:00 07/23/23 20:32 07/23/23 20:15 07/23/23 20:00 BiPAP 07/23/23 19:45 Non-rebreather 07/23/23 19:44 80 Laboratory Results 07/24/23 02:22 07/24/23 02:22 PG Care Time/CCT Total # of Minutes Spent Total Time Spent with Patient: Total time spent is greater than 50% in coordination of care (as documented) at patient's floor/unit and/or counseling patient: Coding Level of Care Code 15218 INT INP/OBS CARE 3MIN Diagnoses Acute respiratory failure with hypoxia and hypercapnia J96.01; J96.02 Acute on chronic respiratory acidosis J96.02; J96.12 Tobacco abuse Z72.0 SOB (shortness of breath) R06.02 COPD with emphysema J43.9
[2023-07-24 08:04] LABS: Estimated Average Glucose 163 mg/dl; Hemoglobin A1C 7.3 % (4.5-5.6)
--- NOTE | 2023-07-24 08:52 | Pharmacy Report ---
Pharmacy Glycemic Short Note 2 - Date of Service July 24, 2023 - Glycemic Short BSG Results (Last 24 hours): 07/23/23 07/23/23 07/23/23 19:18 19:27 23:25 Glucose 224 H POC Glucose 250 H POC Glucose (other) 228 H 07/24/23 07/24/23 07/24/23 02:22 04:04 07:37 Glucose 155 H POC Glucose 127 H 148 H POC Glucose (other) OUTPATIENT ANTIDIABETIC REGIMEN: * Metformin 500 mg PO BIDM * Empagliflozin 10 mg PO qAM HbA1c: 7.3% (07/24/23) ASSESSMENT: * ANSHU is a 68 year old male who presented to ED evening of 07/22 due to shortness of breath, which was worsened on exertion * Patient w acute respiratory failure w/ hypoxia and hypercapnia, no prior hx of COPD * 10 mg IV dexamethasone x 1 given in ED, followed by methylprednisolone 60 mg IV q8h * Patient w/ reasonably well-controlled T2DM as an outpatient w/ oral agents only * Hyperglycemic on presentation > 200 mg/dL * Will be aggressive w/ initial insulin regimen due to high-dose steroids PLAN FOR INPATIENT GLYCEMIC CONTROL: * Hold outpatient oral diabetes medications * Basal insulin * Lantus 20 units SC x 1 w/ first dose of methylprednisolone * Lantus 15 units SC x 1 w/ lunch to equal ~0.4 unit/kg of adjusted body weight * Bolus insulin * NovoLog per scale ACHS or Q6hrs while NPO * Goal Range: Low 110 mg/dL - High 140 mg/dL * Correction Factor: 15 mg/dL/unit * Nutritional / Prandial insulin per carb ratio of 1 unit per 5 grams CHO consumed
[2023-07-24] MEDS ORDERED: methylPREDNISolone 40 MG in SYRINGE 0 ML IV SCH (09:00)
[2023-07-24] MEDS ORDERED: methylPREDNISolone 1000 MG/16 ML IV SCH (09:00)
[2023-07-24] MEDS ORDERED: LANTUS PER UNIT CHARGE SQ SCH (09:00)
[2023-07-24] MEDS ORDERED: guaiFENesin 600 MG TABCR PO SCH (09:00)
[2023-07-24] MEDS: ENOXAPARIN INJ 40 MG/0.4 ML SYR SQ SCH (09:02)
[2023-07-24] MEDS: ASPIRIN 81 MG ECTAB PO SCH (09:02)
[2023-07-24] MEDS: ATORVASTATIN 40 MG TAB PO SCH (09:02)
[2023-07-24] MEDS: ESCITALOPRAM OXALATE 20 MG TAB PO SCH (09:03)
[2023-07-24] MEDS: lisinopril 5 MG TAB PO SCH (09:03)
[2023-07-24] MEDS: METOPROLOL SUCC 25MG EXT REL TAB PO SCH (09:03)
[2023-07-24] MEDS: methylPREDNISolone 60 MG in SYRINGE 0 ML IV SCH (09:03)
[2023-07-24] MEDS: guaiFENesin 600 MG TABCR PO SCH (09:03)
[2023-07-24] MEDS: LANTUS PER UNIT CHARGE SC ONE ×2 (09:08→13:18)
[2023-07-24 11:37] LABS: Base Excess VBG 4.9 mEq/L; HCO3 VBG 35 mmol/L; Oxygen Saturation VBG 83.6 %; PCO2 VBG 76 mmHg (38-50); PO2 VBG 55 mmHg; pH VBG 7.27 (7.36-7.41)
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
[2023-07-24] MEDS: FUROSEMIDE INJ 20 MG/2 ML VIAL IV ONE (12:29)
--- NOTE | 2023-07-24 12:59 | Electrocardiogram Report ---
Test Reason : Blood Pressure : / mmHG Vent. Rate : 121 BPM Atrial Rate : 121 BPM P-R Int : 124 ms QRS Dur : 082 ms QT Int : 284 ms P-R-T Axes : 077 093 020 degrees QTc Int : 403 ms Sinus tachycardia with Premature supraventricular complexes Possible Left atrial enlargement Rightward axis Abnormal ECG When compared with ECG of 08-APR-2012 11:42, Significant changes have occurred Confirmed by Sandor Ledesma ([id number]) on 07/24/2023 12:59:12 PM Referred By: REFERRED SELF Confirmed By:Sandor Ledesma
--- NOTE | 2023-07-24 13:41 | XCELERA ---
[id number]
[2023-07-24] MEDS: methylPREDNISolone 40 MG in SYRINGE 0 ML IV SCH (14:31)
[2023-07-24 16:27] LABS: Base Excess VBG 4.9 mEq/L; HCO3 VBG 35 mmol/L; Oxygen Saturation VBG < 60.0 %; PCO2 VBG 77 mmHg (38-50); PO2 VBG 37 mmHg; pH VBG 7.26 (7.36-7.41)
[2023-07-24] MEDS ORDERED: FORMOTEROL 20 MCG/2 ML VIAL NEB SCH (19:00)
[2023-07-24] MEDS: BUDESONIDE 0.25 MG/2 ML VIAL (PULMICORT) NEB SCH (19:33)
[2023-07-24] MEDS: SODIUM CHLOR 7% 4 ML NEB NEB SCH (19:34)
[2023-07-24] MEDS: FORMOTEROL 20 MCG/2 ML VIAL INH SCH (19:34)
[2023-07-24] MEDS: HALOPERIDOL LACTATE 5 MG/ML 1 ML VIAL IM ONE (20:45)
--- NOTE | 2023-07-24 21:02 | Communication Note ---
Date of Service: July 24, 2023 0730 PM - 0900 PM Called to bedside as patient was insisting on leaving AMA. Discussed risks of leaving AMA with the patient - including risk of worsening disease progression and . Patient noted to be AO x 2 (unaware of location, year, reason for visit, or risks of leaving AMA) and not competent to leave AMA. Patient refusing to wear nasal canula or BiPAP support. Removed his IV site. Subsequently became agitated and a risk to self and staff. Security was called. IM Haldol 5 mg given to patient. Patient subsequently calmed and allowed for IV site to be replaced and respiratory support devices to be put back on. Gen: Agitated, aggressive, disoriented Resp: Removed NC, labored breathing, inspiratory and expiratory wheezing througout Card: Tachycardic Skin: Facial erythema extending to neck, no appreciable cyanosis Spoke with patient's daughter who notes that he has no ride home from the hospital as she does not agree with leaving AMA and will not come get him. She also noted that he seemed increasingly confused when she visited this afternoon. She was agreeable to plan to keep patient in the hospital with medication support. Resident Activity Tracking Resident Involvement: Resident Care Provided Care Provided: Adult Hospital Medicine (night)
[2023-07-24] MEDS: LORazepam 0.5 MG in SYRINGE 0.25 ML IV ONE (21:13)
[2023-07-24] MEDS: cefTRIAXone SODIUM 2,000 MG in DEXTROSE 5 % MINI-B 50 ML IV SCH (21:14)
[2023-07-24] MEDS: PANTOprazole 40 MG TAB PO SCH (21:15)
[2023-07-24] MEDS: MIRTAZAPINE SOLTAB 15 MG PO SCH (21:16)
[2023-07-24] MEDS: AZITHROMYCIN 500 MG in DEXTROSE 5% 250 ML IV SCH (21:47)
[2023-07-25 05:34] LABS: HCO3 ABG 36 mmol/L (19-24); Oxygen Saturation ABG 94.8 % (90-95); PCO2 ABG 69 mmHg (35-46); PO2 ABG 72 mmHg (80-95); pH ABG 7.32 (7.35-7.45)
[2023-07-25 05:35] LABS: Allen Test Pos (Pos)
[2023-07-25 05:41] LABS: Basophils # (auto) 0.04 K/uL (0.00-0.20); Basophils % (auto) 0.3 %; Eosinophils # (auto) 0.03 K/uL (0.00-0.50); Eosinophils % (auto) 0.2 %; Hematocrit (blood only) 45.7 % (42.0-52.0); Hemoglobin 14.3 g/dl (14.0-18.0); Immature Granulocytes # (auto) 0.21 K/uL (0.01-0.20); Immature Granulocytes % (auto) 1.5 %; Lymphocytes # (auto) 0.92 K/uL (1.20-3.40); Lymphocytes % (auto) 6.5 %; Mean Corpuscular Hemoglobin 29.1 pg (25.0-34.0); Mean Corpuscular Hgb Conc 31.3 g/dL (32.0-36.0); Mean Corpuscular Volume 93.1 fL (80.0-100.0); Mean Platelet Volume 9.7 fL (9.4-12.4); Neutrophils # (auto) 12.21 K/uL (1.40-6.50); Neutrophils % (auto) 86.5 %; Nucleated RBC # (auto) 0.07 K/uL (0.00-0.12); Nucleated RBC % (auto) 0.5 %; Platelet Count 250 K/uL (130-400); RDW Coefficient of Variation 14.6 % (11.5-14.5); RDW Standard Deviation 50.1 fL (36.4-46.3); Red Blood Count 4.91 M/uL (4.70-6.10); White Blood Count 14.11 K/ul (4.8-10.8)
[2023-07-25 05:58] LABS: BUN Creatinine Ratio 51.5 (10-20); Calcium 9.5 mg/dl (8.6-10.3); Creatinine Clr Calc Pharmacy 87.5 ml/min; Est GFR (African American) 91.9 ml/min; Est GFR (Non-African American) 79.3 ml/min; Potassium 4.4 mmol/L (3.5-5.1)
--- NOTE | 2023-07-25 08:08 | Pulmonology Progress Note ---
Date of Service July 25, 2023 Assessment & Plan (1) Acute respiratory failure with hypoxia and hypercapnia: (2) Acute on chronic respiratory acidosis: (3) Tobacco abuse: (4) SOB (shortness of breath): (5) COPD with emphysema: Plan CT chest 07/23/2023 personally reviewed: Minimal centrilobular emphysema appreciated bilaterally Tree-in-bud opacities appreciated in upper and lower lobes more pronounced in the lower lobes Motion degraded study Minimal mediastinal lymphadenopathy ABG 07/23/2023: 7.17/84/105 on 50%--> 07/25/2023 AB.32 /69 /72 on 40% -- Acute hypercapnic hypoxic respiratory failure Likely secondary to COPD exacerbation Procalcitonin 0.42, nasal MRSA negative Respiratory bio fire negative for everything --COPD with emphysema Not on any standing inhalers at home Would recommend Trelegy 100 or BrezTri on discharge Due to chronic respiratory failure consequent to COPD, patient now requires a noninvasive home ventilator. Bilevel therapy with and without a rate would be ineffective as patient requires a volume targeted mode. Ventilation is required to decrease work of breathing and improve pulmonary status. Interruption of ventilator support would lead to decline of health status. COPD causing recurrent hypercapnic respiratory failure with a PaCo2 of 84 --> 75 with BiPAP. Patient would benefit greatly from noninvasive ventilation which would improve lung function and potentially reduce worsening of symptoms. A BiPAP would be ineffective as patient requires a volume targeted mode. Interruption of ventilator support would lead to a decline of health status. NIMV settings should be AVAPS-AE; Breath rate: auto; Inspiratory time:auto; Sigh: off; Tidal Volume: 350-450, PS min: 4-10 PS max: 12-20; EPAP min: 6-10; EPAP max: 10-16; AVAPS rate: 14 during sleep and as needed --Active smoker > [id number] smoking history Positive quitting explained to the patient in depth --Probable FAY/OHS Recommend outpatient polysomnography -- For diffuse tree-in-bud opacities would recommend repeat CT chest to be done in 3 months Plan: ABG from today does show improvement in the hypercapnia. Continue with Brovana and budesonide to the regimen along with hypertonic saline and flutter valve, recommend Trelegy 100 or BrezTri on discharge Keep O2 saturation between 88-92%, do not or oxygenate the patient BiPAP nightly and as needed shortness of breath Case was discussed with primary team and RN at bedside Please note the above document was generated using voice recognition software. It may contain grammatical, syntax or spelling errors.Any formal questions or concerns about the content, text or information contained within the body of this dictation should be directly addressed to the provider for clarification. Admission and Anticipated Discharge Date Admission Date: July 23, 2023 Subjective Patient seen and examined at bedside. No acute distress. No adverse events overnight He was on the bed using the BiPAP. He was awake alert oriented x 3. Stated that his breathing is better compared to yesterday. Going to the chart he actually wanted to leave AMA last night Denies any headache, no nausea or vomiting Review of Systems 2 Review of Systems: All systems reviewed & are unremarkable except as noted in Subjective Physical Exam 2 Physical Exam: Constitutional: No acute distress HEENT: EOMI, PERRLA Respiratory system: Decreased air entry bilaterally, no rhonchi, minimal expiratory wheeze bilaterally, improved from yesterday, positive crackles bilateral lower lobes CVS: S1-S2 positive, no murmurs or gallops Abdomen: Soft, nontender, nondistended, positive bowel sounds x4, obese Extremities: +2 pulses bilaterally radialis/ dorsalis pedis, no cyanosis, no edema Neuro: Awake alert oriented x3 Psych: Normal mood and affect G/U: No Irving Skin: no rashes, warm and dry Lymphatic: no cervical or axillary lymphadenopathy Results & Data Results & Data Vital Signs (Past 12 Hours) Vital Signs Temp Pulse Pulse Resp BP Pulse Ox O2 Del Method 07/25/23 07:28 36.3 C L 83 19 110/65 91 BiPAP 07/25/23 06:49 89 20 95 07/25/23 06:49 91 H 20 94 BiPAP 07/25/23 03:57 79 20 93 07/25/23 03:35 93 BiPAP 07/25/23 02:56 86 21 123/68 89 L BiPAP 07/25/23 00:46 90 20 95 07/24/23 23:00 36.4 C L 85 21 135/76 92 BiPAP 07/24/23 22:47 96 H 20 92 07/24/23 22:30 89 FiO2 07/25/23 07:28 07/25/23 06:49 40 07/25/23 06:49 40 07/25/23 03:57 40 07/25/23 03:35 40 07/25/23 02:56 07/25/23 00:46 40 07/24/23 23:00 07/24/23 22:47 40 07/24/23 22:30 Laboratory Results 07/25/23 05:22 07/25/23 05:22 PG Care Time/CCT Total # of Minutes Spent Total Time Spent with Patient: Total time spent is greater than 50% in coordination of care (as documented) at patient's floor/unit and/or counseling patient: Coding Level of Care Code 32680 SUB INP/OBS CARE 3/50MIN Diagnoses Acute respiratory failure with hypoxia and hypercapnia J96.01; J96.02 Acute on chronic respiratory acidosis J96.02; J96.12 Tobacco abuse Z72.0 SOB (shortness of breath) R06.02 COPD with emphysema J43.9
--- NOTE | 2023-07-25 09:30 | Pharmacy Report ---
Pharmacy Glycemic Short Note 2 - Date of Service July 25, 2023 - Glycemic Short BSG Results (Last 24 hours): 07/24/23 07/24/23 07/24/23 11:25 16:10 20:35 Glucose POC Glucose 293 H 106 H 164 H 07/24/23 07/25/23 07/25/23 21:27 05:22 08:53 Glucose 146 H POC Glucose 154 H 132 H OUTPATIENT ANTIDIABETIC REGIMEN: * Metformin 500 mg PO BIDM * Empagliflozin 10 mg PO qAM HbA1c: 7.3% (07/24/23) ASSESSMENT: 07/25/23 * Patient received 57 units of insulin yesterday, 35 units basal, fasting BSG 132mg/dl - continue basal. * BSGs also improved after tightening CF/CR to 15/ yesterday, continue this as patient continues on Nicolette-Medrol 40mg IV Q8H - loosen as steroids are tapered. 07/24/23 * ANSHU is a 68 year old male who presented to ED evening of 07/22 due to shortness of breath, which was worsened on exertion * Patient w acute respiratory failure w/ hypoxia and hypercapnia, no prior hx of COPD * 10 mg IV dexamethasone x 1 given in ED, followed by methylprednisolone 60 mg IV q8h * Patient w/ reasonably well-controlled T2DM as an outpatient w/ oral agents only * Hyperglycemic on presentation > 200 mg/dL * Will be aggressive w/ initial insulin regimen due to high-dose steroids PLAN FOR INPATIENT GLYCEMIC CONTROL: * Hold outpatient oral diabetes medications * Basal insulin * Lantus 35 units SQ daily * Bolus insulin * NovoLog per scale ACHS or Q6hrs while NPO * Goal Range: Low 110 mg/dL - High 140 mg/dL * Correction Factor: 15 mg/dL/unit * Nutritional / Prandial insulin per carb ratio of 1 unit per 5 grams CHO consumed
[2023-07-25] MEDS: LANTUS PER UNIT CHARGE SC SCH (09:33)
[2023-07-25] MEDS: NICOTINE 21 MG/24 HR TDSY TD SCH (09:33)
[2023-07-25] MEDS: SODIUM CHLORIDE 0.9% 1,000 ML IV SCH (09:33)
--- NOTE | 2023-07-25 12:31 | CT Scan Report ---
CT head/brain wo con CLINICAL HISTORY: unwitnessed falls at home, eval ICH etc. Technique: Contiguous axial CT images of the head were acquired from the base of the skull to the kev alina without intravenous contrast administration. Images were viewed in brain, subdural and bone windo ws. Automated dose lowering techniques and/or adjustment according to patient size were utilized for this exam. Comparison: Comparison is made to CT head 06/23/2015 Findings: The ventricles, basal cisterns, and cerebral sulci are normal. There is no acute intracranial hemorrh age or evidence of acute territorial infarction. Neither mass effect, shift of the midline structures , nor abnormal extra-axial fluid collections are shown. Old hypodensity in the right frontal lobe. A neurysm coil in the right skull base is unchanged. Imaged portions of the paranasal sinuses and mastoid air cells are clear. The orbits appear normal. There are no acute fractures of the calvaria or scalp swelling. Impression: No acute intracranial hemorrhage, skull fractures, or scalp swelling. ACT 112: Negative or not required by law. Electronically signed by: Rah Brumfield M.D. 07/25/2023 12:30 PM
--- NOTE | 2023-07-25 14:13 | CT Scan Report ---
CT SCAN OF THE CERVICAL SPINE CLINICAL HISTORY: Unwitnessed falls. COMPARISON STUDY: Cervical spine CT dated 01/30/2015. TECHNIQUE: CT scan of the cervical spine is performed from the skull base to the upper thoracic spine . Images are reviewed in the axial, sagittal, and coronal planes. IV contrast was not administered fo r this examination. A dose lowering technique was utilized adhering to the principles of ALARA. CT DOSE: 1437.57 mGy.cm FINDINGS: Skeletal structures: The skeletal structures are osteopenia. There is no evidence of fracture or subl uxation involving the cervical spine. Vertebral body height is maintained. There is minimal anteroli sthesis at C7-T1. Alignment is otherwise preserved. There is straightening of the cervical lordosis. Anterior osteophytes are seen throughout. The odontoid process and lateral masses are intact. The ino antoaxial articulation is preserved noting productive degenerative change. The spinous processes appe ar intact. There is moderate to advanced multilevel cervical spondylosis. Uncovertebral and facet art hropathy contribute to neural foraminal stenosis at most levels. Intervertebral discs: There is moderate to severe disc space narrowing at C4-C5, C5-C6, C6-C7, and C7 -T1. Central canal: Posterior disc osteophyte complexes are seen at all cervical levels between C3-C4 and C6-C7. This likely contributes to multilevel acquired compromise of the central canal. Soft tissues: The prevertebral and paraspinous soft tissues are within normal limits. There is athero sclerotic calcification of the carotid bulbs. Calvarium: The visualized calvarium at the skull base appears intact. Brain parenchyma: Partially visualized brain parenchyma at the skull base is within normal limits. Sinuses and mastoids: There is mild mucosal thickening in the sphenoid sinuses. The mastoid air cells are well pneumatized. Cerumen is noted in the external auditory canals. Lung apices: Clear as visualized. IMPRESSION: 1. There is no evidence of cervical spine fracture or subluxation. 2. Osteopenia and spondylotic change as above. ACT 112: Negative or not required by law. Electronically signed by: Oren Perez M.D. 07/25/2023 2:10 PM
--- NOTE | 2023-07-25 18:51 | Hospitalist Progress Note ---
Date of Service July 25, 2023 Assessment & Plan (1) Severe sepsis: Plan: 2nd to b/l pneumonia improved blood cx's remain negative to date (2) Acute respiratory failure with hypoxia and hypercapnia: Plan: 2nd to b/l pneumonia + probable COPD exacerbation sed rate/crp markedly elevated suggestive of infectious/inflammatory process no evidence of PE on his admission CTA chest required BIPAP for 12+ hours following admission now down to NC O2 during the day, BIPAP at HS cont bronchodilators, IV abx, and IV steroids - likely can wean the latter tomorrow FIO2 requirements have decreased, CO2 levels have decreased (ABG much improved today), and mentation has improved appreciate pulmonary consultation & recs no response to lasix, and echo wnl despite elevated BNP - unlikely decompensated CHF playing a role keep sats 90-92% cont BIPAP at HS and naps (3) Pneumonia: Plan: b/l cont rocephin - day #3 cont zithromax - day #3 improving biofire resp panel noted to be negative legionella urine ag pending sputum cx if able to produce sputum supportive care with nebs, O2, BIPAP, etc (4) Tobacco abuse: Plan: current smoker, 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 patch 21mg/day (5) Acute exacerbation of chronic obstructive pulmonary disease: Plan: patient does not have a formal dx of COPD but likely has such based on emphysematous changes on imaging, long-standing tobacco history, etc treat for "COPD exacerbation" with IV steroids, nebs, etc appreciate pulmonary consult desperately needs to quit smoking (6) Hypomagnesemia: Plan: repleted resolved (7) DM2 (diabetes mellitus, type 2): Plan: hba1c 7.3% holding PO meds lantus-novolog appreciate pharmacy glycemic consult & recs (8) Hypertension: Plan: Continue metoprolol (9) Anxiety: Plan: Continue escitalopram (10) MCI (mild cognitive impairment) with memory loss: Plan: with superimposed metabolic encephalopathy CT head neg for acute findings (11) CAD (coronary artery disease): Plan: h/o CABG - [facility] - 02/2018 4-vessel CABG --> MATT to LAD, VG to OM2, VG to PDA-PRL cont metoprolol cont asa cont LUIS cont statin mild troponin elevation likely due to myocardial demand ischemia rather than ACS (12) Urinary incontinence: Plan: check u/a, r/o UTI may have simply been due to worsening mental status from brewing pneumonia either way check u/a (13) Acute metabolic encephalopathy: Plan: 2nd to elevated CO2, low O2, severe sepsis, pneumonia, etc improving although he did need haldol overnight for will schedule seroquel 25mg at HS tonight AVOID BENZOS/sedatives in light of hypercapnia (14) Multiple falls: Plan: unwitnessed last one was this past weekend - details uncertain head CT and c-spine CT w/o fracture, ICH, etc reported numbness in distal LLE yesterday but not today could potentially need l-spine imaging if this complaint recurs CPK noted to be wnl (15) DVT prophylaxis: Plan: lovenox once daily (16) S/P coil embolization of cerebral aneurysm: Plan: history of right ICA supraclinoid aneurysm s/p coil embolization 05/[address] [facility] CT head today neg for acute findings Plan daughter updated at bedside yesterday and again today by phone Admission and Anticipated Discharge Date Admission Date: July 23, 2023 Subjective overnight was confused and agitated - required 5mg of IM haldol following such was more calm and cooperative during my visit he was resting comfortably in bed mild cough only he was more awake, alert, conversant today knew he was in the hospital and that it was 2023 he was upset that his plaza got trimmed (due to the need for BIPAP) but understands why he needed such eating is poor tele overnight wnl Review of Systems Review of Systems: cv - denies chest pain pulm - denies dyspnea at rest GI - denies abd pain or nausea Physical Exam Physical Exam: gen - more awake, alert today; no distress neck - no obvious JVD mouth - MM mildly dry heart - RRR, s1 s2, no murmur lungs - b/l basilar crackles, mild end-exp wheezes b/l, airation improved today, no increased work of breathing abd - soft NT ND BS+ ext - no edema, pulses 2+ b/l psych - a/o x 3 today Results & Data Results & Data Vital Signs (Past 12 Hours) Vital Signs Temp Pulse Pulse Resp BP Pulse Ox O2 Del Method 07/25/23 15:25 36.4 C L 76 20 109/72 91 Nasal Cannula 07/25/23 14:20 92 07/25/23 13:31 79 18 95 Nasal Cannula 07/25/23 11:09 36.4 C L 75 19 118/68 96 Nasal Cannula 07/25/23 08:00 BiPAP, High Flow Nasal Cannula 07/25/23 08:00 75 07/25/23 07:28 36.3 C L 83 19 110/65 91 BiPAP O2 Flow Rate 07/25/23 15:25 6 07/25/23 14:20 07/25/23 13:31 4 07/25/23 11:09 10 07/25/23 08:00 10 07/25/23 08:00 07/25/23 07:28 Laboratory Results Laboratory Results - last 24 hr 07/24/23 07/24/23 07/24/23 02:22 20:35 21:27 WBC RBC Hgb Hct MCV MCH MCHC RDW Std Deviation RDW Coeff of Christy Plt Count MPV Immature Gran % (Auto) Neut % (Auto) Lymph % (Auto) Otoe % (Auto) Eos % (Auto) Baso % (Auto) Neut # (Auto) Lymph # (Auto) [place] # (Auto) Eos # (Auto) Baso # (Auto) Immature Gran # (Auto) Absolute Nucleated RBC Nucleated RBC % (auto) ABG pH ABG pCO2 ABG pO2 ABG HCO3 ABG O2 Saturation ABG Base Excess Ryan Test Oxygen Given Sodium Potassium Chloride Carbon Dioxide Anion Gap BUN Creatinine Est Cr Clr Drug Dosing Est GFR ( Amer) Est GFR (Non-Af Amer) BUN/Creatinine Ratio Glucose POC Glucose 164 H 154 H Calcium Total Creatine Kinase Hepatitis C Ab (EIA) REACTIVE A Urine Legionella Ag 07/25/23 07/25/23 07/25/23 05:22 08:53 10:30 WBC 14.11 H RBC 4.91 Hgb 14.3 Hct 45.7 MCV 93.1 MCH 29.1 MCHC 31.3 L RDW Std Deviation 50.1 H RDW Coeff of Christy 14.6 H Plt Count 250 MPV 9.7 Immature Gran % (Auto) 1.5 Neut % (Auto) 86.5 Lymph % (Auto) 6.5 Otoe % (Auto) 5.0 Eos % (Auto) 0.2 Baso % (Auto) 0.3 Neut # (Auto) 12.21 H Lymph # (Auto) 0.92 L [place]toe # (Auto) 0.70 H Eos # (Auto) 0.03 Baso # (Auto) 0.04 Immature Gran # (Auto) 0.21 H Absolute Nucleated RBC 0.07 Nucleated RBC % (auto) 0.5 ABG pH 7.32 L ABG pCO2 69 H ABG pO2 72 L ABG HCO3 36 H ABG O2 Saturation 94.8 ABG Base Excess 7.0 H Ryan Test Pos Oxygen Given 40% FI02 Sodium 138 Potassium 4.4 Chloride 101 Carbon Dioxide 31 Anion Gap 6 BUN 50 H D Creatinine 0.97 Est Cr Clr Drug Dosing 87.5 Est GFR ( Amer) 91.9 Est GFR (Non-Af Amer) 79.3 BUN/Creatinine Ratio 51.5 H Glucose 146 H POC Glucose 132 H Calcium 9.5 Total Creatine Kinase 123 Hepatitis C Ab (EIA) Urine Legionella Ag Pending 07/25/23 07/25/23 12:22 16:09 WBC RBC Hgb Hct MCV MCH MCHC RDW Std Deviation RDW Coeff of Christy Plt Count MPV Immature Gran % (Auto) Neut % (Auto) Lymph % (Auto) Otoe % (Auto) Eos % (Auto) Baso % (Auto) Neut # (Auto) Lymph # (Auto) [place]toe # (Auto) Eos # (Auto) Baso # (Auto) Immature Gran # (Auto) Absolute Nucleated RBC Nucleated RBC % (auto) ABG pH ABG pCO2 ABG pO2 ABG HCO3 ABG O2 Saturation ABG Base Excess Ryan Test Oxygen Given Sodium Potassium Chloride Carbon Dioxide Anion Gap BUN Creatinine Est Cr Clr Drug Dosing Est GFR ( Amer) Est GFR (Non-Af Amer) BUN/Creatinine Ratio Glucose POC Glucose 137 H 218 H Calcium Total Creatine Kinase Hepatitis C Ab (EIA) Urine Legionella Ag Diagnostic Findings blood cx's neg to date PG Care Time/CCT Total # of Minutes Spent Total Time Spent with Patient: Total time spent is greater than 50% in coordination of care (as documented) at patient's floor/unit and/or counseling patient: Coding Level of Care Code 11182 SUB INP/OBS CARE 3/50MIN Diagnoses Severe sepsis A41.9; R65.20 Acute respiratory failure with hypoxia and hypercapnia J96.01; J96.02 Pneumonia J18.9 Tobacco abuse Z72.0 Acute exacerbation of chronic obstructive pulmonary disease J44.1 Hypomagnesemia E83.42 DM2 (diabetes mellitus, type 2) E11.9 Hypertension I10 Anxiety F41.9 MCI (mild cognitive impairment) with memory loss G31.84 CAD (coronary artery disease) I25.10 Urinary incontinence R32 Acute metabolic encephalopathy G93.41 Multiple falls R29.6 DVT prophylaxis Z29.9 S/P coil embolization of cerebral aneurysm Z98.890
[2023-07-25] MEDS: QUEtiapine FUMARATE 25 MG TABLET PO SCH (20:22)
[2023-07-26] MEDS: MELATONIN 3 MG TAB PO PRN (01:14)
[2023-07-26 06:00] LABS: BUN Creatinine Ratio 47.2 (10-20); Calcium 8.8 mg/dl (8.6-10.3); Creatinine Clr Calc Pharmacy 117.7 ml/min; Est GFR (African American) 110.3 ml/min; Est GFR (Non-African American) 95.2 ml/min; Potassium 4.5 mmol/L (3.5-5.1)
--- NOTE | 2023-07-26 08:00 | Pulmonology Progress Note ---
Date of Service July 26, 2023 Assessment & Plan (1) Acute respiratory failure with hypoxia and hypercapnia: (2) Acute on chronic respiratory acidosis: (3) Tobacco abuse: (4) SOB (shortness of breath): (5) COPD with emphysema: Plan CT chest 07/23/2023 personally reviewed: Minimal centrilobular emphysema appreciated bilaterally Tree-in-bud opacities appreciated in upper and lower lobes more pronounced in the lower lobes Motion degraded study Minimal mediastinal lymphadenopathy ABG 07/23/2023: 7.17/84/105 on 50%--> 07/25/2023 AB.32 /69 /72 on 40% -- Acute hypercapnic hypoxic respiratory failure Likely secondary to COPD exacerbation with multilobar pneumonia Denies any diarrhea prior to coming to the hospital Procalcitonin 0.42, nasal MRSA negative Respiratory bio fire negative for everything --COPD with emphysema Not on any standing inhalers at home Would recommend Trelegy 100 or BrezTri on discharge Due to chronic respiratory failure consequent to COPD, patient now requires a noninvasive home ventilator. Bilevel therapy with and without a rate would be ineffective as patient requires a volume targeted mode. Ventilation is required to decrease work of breathing and improve pulmonary status. Interruption of ventilator support would lead to decline of health status. COPD causing recurrent hypercapnic respiratory failure with a PaCo2 of 84 --> 75 with BiPAP. Patient would benefit greatly from noninvasive ventilation which would improve lung function and potentially reduce worsening of symptoms. A BiPAP would be ineffective as patient requires a volume targeted mode. Interruption of ventilator support would lead to a decline of health status. NIMV settings should be AVAPS-AE; Breath rate: auto; Inspiratory time:auto; Sigh: off; Tidal Volume: 350-450, PS min: 4-10 PS max: 12-20; EPAP min: 6-10; EPAP max: 10-16; AVAPS rate: 14 during sleep and as needed --Active smoker > [id number] smoking history Positive quitting explained to the patient in depth --Probable FAY/OHS Recommend outpatient polysomnography -- For diffuse tree-in-bud opacities would recommend repeat CT chest to be done in 3 months Plan: Continue with Brovana and budesonide to the regimen along with hypertonic saline and flutter valve, recommend Trelegy 100 or BrezTri on discharge Decrease Solu-Medrol to 40 mg on a daily Keep O2 saturation between 88-92%, do not over-oxygenate the patient Patient will likely need oxygen even at home. BiPAP nightly and as needed shortness of breath Case was discussed with primary team Please note the above document was generated using voice recognition software. It may contain grammatical, syntax or spelling errors.Any formal questions or concerns about the content, text or information contained within the body of this dictation should be directly addressed to the provider for clarification. Admission and Anticipated Discharge Date Admission Date: July 23, 2023 Subjective Patient seen and examined at bedside. No acute distress, no adverse events overnight He stated that he uses BiPAP overnight. He was saturating 88% on 5 L oxygen nasal cannula. She denied any chest pain, no headache, no nausea, no vomiting Asking if he can go home today. Review of Systems 2 Review of Systems: All systems reviewed & are unremarkable except as noted in Subjective Physical Exam 2 Physical Exam: Constitutional: No acute distress HEENT: EOMI, PERRLA Respiratory system: Decreased air entry bilaterally, no rhonchi, no wheeze, positive crackles bilateral lower lobes CVS: S1-S2 positive, no murmurs or gallops Abdomen: Soft, nontender, nondistended, positive bowel sounds x4, obese Extremities: +2 pulses bilaterally radialis/ dorsalis pedis, no cyanosis, no edema Neuro: Awake alert oriented x3 Psych: Normal mood and affect G/U: No [place] Skin: no rashes, warm and dry Lymphatic: no cervical or axillary lymphadenopathy Results & Data Results & Data Vital Signs (Past 12 Hours) Vital Signs Temp Pulse Pulse Resp BP Pulse Ox O2 Del Method 07/26/23 03:04 36.4 C L 71 19 130/65 94 Nasal Cannula 07/26/23 00:35 84 20 86 L Nasal Cannula 07/25/23 23:53 88 22 95 07/25/23 23:44 36.3 C L 87 20 120/75 95 BiPAP 07/25/23 22:34 89 07/25/23 20:00 High Flow Nasal Cannula O2 Flow Rate FiO2 07/26/23 03:04 5 07/26/23 00:35 6 07/25/23 23:53 40 07/25/23 23:44 40 07/25/23 22:34 07/25/23 20:00 Laboratory Results 07/25/23 05:22 07/26/23 05:30 PG Care Time/CCT Total # of Minutes Spent Total Time Spent with Patient: Total time spent is greater than 50% in coordination of care (as documented) at patient's floor/unit and/or counseling patient: Coding Level of Care Code 00505 SUB INP/OBS CARE 2/35MIN Diagnoses Acute respiratory failure with hypoxia and hypercapnia J96.01; J96.02 Acute on chronic respiratory acidosis J96.02; J96.12 Tobacco abuse Z72.0 SOB (shortness of breath) R06.02 COPD with emphysema J43.9
[2023-07-26] MEDS ORDERED: LANTUS PER UNIT CHARGE SC SCH (09:00)
--- NOTE | 2023-07-26 12:12 | Pharmacy Report ---
Pharmacy Glycemic Short Note 2 - Date of Service July 26, 2023 - Glycemic Short BSG Results (Last 24 hours): 07/25/23 07/25/23 07/25/23 12:22 16:09 20:32 Glucose POC Glucose 137 H 218 H 125 H 07/26/23 07/26/23 07/26/23 05:30 07:44 11:57 Glucose 218 H POC Glucose 86 159 H OUTPATIENT ANTIDIABETIC REGIMEN: * Metformin 500 mg PO BIDM * Empagliflozin 10 mg PO qAM HbA1c: 7.3% (07/24/23) ASSESSMENT: 07/26/23 * Kamran received 47 units of insulin yesterday (35 units basal + 12 units bolus). * Patient remains on methylprednisolone 40 mg IV. Reduced from q8h to daily today. * Discrepancy in fasting BSG values, lab draw resulted at 218 and POC resulted at 86 mg/dL. Patient did not receive insulin in between these values. Delayed administration of basal insulin to lunchtime. Current insulin dosing is basal heavy. Will reduce Lantus dose significantly due to this and decrease in steroids. * Loosen novolog parameters 07/25/23 * Patient received 57 units of insulin yesterday, 35 units basal, fasting BSG 132mg/dl - continue basal. * BSGs also improved after tightening CF/CR to 15/5 yesterday, continue this as patient continues on Nicolette-Medrol 40mg IV Q8H - loosen as steroids are tapered. 07/24/23 * ANSHU is a 68 year old male who presented to ED evening of 07/22 due to shortness of breath, which was worsened on exertion * Patient w acute respiratory failure w/ hypoxia and hypercapnia, no prior hx of COPD * 10 mg IV dexamethasone x 1 given in ED, followed by methylprednisolone 60 mg IV q8h * Patient w/ reasonably well-controlled T2DM as an outpatient w/ oral agents only * Hyperglycemic on presentation > 200 mg/dL * Will be aggressive w/ initial insulin regimen due to high-dose steroids PLAN FOR INPATIENT GLYCEMIC CONTROL: * Hold outpatient oral diabetes medications * Basal insulin * Lantus 20 units SQ daily * Bolus insulin * NovoLog per scale ACHS or Q6hrs while NPO * Goal Range: Low 110 mg/dL - High 140 mg/dL * Correction Factor: 20 mg/dL/unit * Nutritional / Prandial insulin per carb ratio of 1 unit per 6 grams CHO consumed
[2023-07-26] MEDS: LANTUS PER UNIT CHARGE SC SCH (12:40)
--- NOTE | 2023-07-26 20:46 | Hospitalist Progress Note ---
Date of Service July 26, 2023 Assessment & Plan (1) Severe sepsis: Plan: 2nd to b/l pneumonia resolved blood cx's remain negative (2) Acute respiratory failure with hypoxia and hypercapnia: Plan: 2nd to b/l pneumonia + probable COPD exacerbation sed rate/crp markedly elevated suggestive of infectious/inflammatory process no evidence of PE on his admission CTA chest required BIPAP for 12+ hours following admission now down to NC O2 during the day, BIPAP at HS - but using latter now sparingly cont bronchodilators, IV abx, and IV steroids - Dr Hartman to wean his steroids today appreciate pulmonary consultation & recs no response to lasix, and echo wnl despite elevated BNP - unlikely that decompensated CHF played any role in his presentation keep sats 90-92% cont BIPAP at HS and naps Dr Hartman ordered Trilogy for him for home use but doubt he will comply cont to wean O2 as tolerated (3) Pneumonia: Plan: b/l cont rocephin - day #4 cont zithromax - day #4 improving biofire resp panel noted to be negative legionella urine ag pending supportive care with nebs, O2, BIPAP, etc (4) Tobacco abuse: Plan: current smoker, 2 PPD 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 to 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 nicoderm patch 21mg/day (5) Acute exacerbation of chronic obstructive pulmonary disease: Plan: patient does not have a formal dx of COPD but likely has such based on emphysematous changes on imaging, long-standing tobacco history, etc treat for "COPD exacerbation" with IV steroids, nebs, etc steroids to be weaned today appreciate pulmonary consult desperately needs to quit smoking (6) Hypomagnesemia: Plan: repleted resolved (7) DM2 (diabetes mellitus, type 2): Plan: hba1c 7.3% holding PO meds lantus-novolog appreciate pharmacy glycemic consult & recs (8) Hypertension: Plan: Continue metoprolol (9) Anxiety: Plan: Continue escitalopram (10) MCI (mild cognitive impairment) with memory loss: Plan: with superimposed metabolic encephalopathy CT head neg for acute findings (11) CAD (coronary artery disease): Plan: h/o CABG - [facility] - 02/2018 4-vessel CABG --> MATT to LAD, VG to OM2, VG to PDA-PRL cont metoprolol cont asa cont LUIS cont statin mild troponin elevation likely due to myocardial demand ischemia rather than ACS (12) Urinary incontinence: Plan: improved was likely due to altered MS in the face of his sepsis, resp failure, CO2 retention, etc (13) Acute metabolic encephalopathy: Plan: 2nd to elevated CO2, low O2, severe sepsis, pneumonia, etc improving continue scheduled seroquel 25mg at HS AVOID BENZOS/sedatives in light of hypercapnia (14) Multiple falls: Plan: unwitnessed last one was this past weekend - details uncertain head CT and c-spine CT w/o fracture, ICH, etc reported numbness in distal LLE earlier this week but resolved CPK noted to be wnl (15) DVT prophylaxis: Plan: lovenox once daily (16) S/P coil embolization of cerebral aneurysm: Plan: history of right ICA supraclinoid aneurysm s/p coil embolization 05/2015 at [facility] CT head neg for acute findings Plan daughter updated by phone on 07/24 cont PT/OT progressing Admission and Anticipated Discharge Date Admission Date: July 23, 2023 Subjective tele overnight wnl per staff only used BIPAP for about 3 hours overnight not as much agitation overnight or today with that said he is adamant about going home we had lengthy discussion that he simply can't go home right now because of high O2 requirements (8 L) he was more oriented today - knew he was at "[facility]", 2023, June didn't get day right (thought it was Sunday) continues with cough and congestion with some sputum dyspnea on exertion with minimal activity (walking to bathroom) eating improved 2 stools today Review of Systems Review of Systems: gen - no fevers cv - no chest pain, no orthopnea pulm - no hemoptysis GI - no N/V neuro - no further distal LLE numbness Physical Exam Physical Exam: gen - awake, alert, oriented - looks better today neck - no obvious JVD mouth - MMM heart - RRR, s1 s2, no murmur lungs - b/l basilar crackles, mild end-exp wheezes b/l, airation again improved today, no increased work of breathing abd - soft NT ND BS+ ext - no edema, pulses 2+ b/l psych - a/o x 3 except didn't get day of the week Results & Data Results & Data Vital Signs (Past 12 Hours) Vital Signs Temp Pulse Pulse Resp BP Pulse Ox O2 Del Method 07/26/23 19:46 74 18 91 Nasal Cannula 07/26/23 19:16 36.6 C 75 18 155/74 H 95 Nasal Cannula 07/26/23 16:00 36.5 C 73 18 161/91 H 94 High Flow Nasal Cannula 07/26/23 14:00 75 07/26/23 13:28 74 18 92 Nasal Cannula 07/26/23 11:30 36.7 C 89 18 114/70 97 Nasal Cannula 07/26/23 10:40 High Flow Nasal Cannula O2 Flow Rate 07/26/23 19:46 6 07/26/23 19:16 6.0 07/26/23 16:00 6 07/26/23 14:00 07/26/23 13:28 8 07/26/23 11:30 5 07/26/23 10:40 6 Laboratory Results Laboratory Results - last 24 hr 07/26/23 07/26/23 07/26/23 05:30 07:44 11:57 Sodium 139 Potassium 4.5 Chloride 103 Carbon Dioxide 33 H Anion Gap 3 BUN 34 H Creatinine 0.72 Est Cr Clr Drug Dosing 117.7 Est GFR ( Amer) 110.3 Est GFR (Non-Af Amer) 95.2 BUN/Creatinine Ratio 47.2 H Glucose 218 H POC Glucose 86 159 H Calcium 8.8 PG Care Time/CCT Total # of Minutes Spent Total Time Spent with Patient: Total time spent is greater than 50% in coordination of care (as documented) at patient's floor/unit and/or counseling patient: Coding Level of Care Code 09348 SUB INP/OBS CARE 2/35MIN Diagnoses Severe sepsis A41.9; R65.20 Acute respiratory failure with hypoxia and hypercapnia J96.01; J96.02 Pneumonia J18.9 Tobacco abuse Z72.0 Acute exacerbation of chronic obstructive pulmonary disease J44.1 Hypomagnesemia E83.42 DM2 (diabetes mellitus, type 2) E11.9 Hypertension I10 Anxiety F41.9 MCI (mild cognitive impairment) with memory loss G31.84 CAD (coronary artery disease) I25.10 Urinary incontinence R32 Acute metabolic encephalopathy G93.41 Multiple falls R29.6 DVT prophylaxis Z29.9 S/P coil embolization of cerebral aneurysm Z98.890
[2023-07-27 07:13] LABS: Hematocrit (blood only) 48.7 % (42.0-52.0); Hemoglobin 15.5 g/dl (14.0-18.0); Mean Corpuscular Hemoglobin 29.4 pg (25.0-34.0); Mean Corpuscular Hgb Conc 31.8 g/dL (32.0-36.0); Mean Corpuscular Volume 92.4 fL (80.0-100.0); Mean Platelet Volume 9.8 fL (9.4-12.4); Nucleated RBC # (auto) 0.03 K/uL (0.00-0.12); Nucleated RBC % (auto) 0.2 %; Platelet Count 271 K/uL (130-400); RDW Coefficient of Variation 14.5 % (11.5-14.5); RDW Standard Deviation 48.8 fL (36.4-46.3); Red Blood Count 5.27 M/uL (4.70-6.10)
[2023-07-27 07:25] LABS: BUN Creatinine Ratio 25.3 (10-20); Calcium 9.2 mg/dl (8.6-10.3); Creatinine Clr Calc Pharmacy 109.8 ml/min; Est GFR (African American) 106.2 ml/min; Est GFR (Non-African American) 91.6 ml/min; Potassium 3.9 mmol/L (3.5-5.1)
--- NOTE | 2023-07-27 07:29 | Pulmonology Progress Note ---
Date of Service July 27, 2023 Assessment & Plan (1) Acute respiratory failure with hypoxia and hypercapnia: (2) Acute on chronic respiratory acidosis: (3) Tobacco abuse: (4) SOB (shortness of breath): (5) COPD with emphysema: Plan CT chest 07/23/2023 personally reviewed: Minimal centrilobular emphysema appreciated bilaterally Tree-in-bud opacities appreciated in upper and lower lobes more pronounced in the lower lobes Motion degraded study Minimal mediastinal lymphadenopathy ABG 07/23/2023: 7.17/84/105 on 50%--> 07/25/2023 AB.32 /69 /72 on 40% -- Acute hypercapnic hypoxic respiratory failure Likely secondary to COPD exacerbation with multilobar pneumonia Denies any diarrhea prior to coming to the hospital Procalcitonin 0.42, nasal MRSA negative Respiratory bio fire negative for everything --COPD with emphysema Not on any standing inhalers at home Would recommend Trelegy 100 or BrezTri on discharge Due to chronic respiratory failure consequent to COPD, patient now requires a noninvasive home ventilator. Bilevel therapy with and without a rate would be ineffective as patient requires a volume targeted mode. Ventilation is required to decrease work of breathing and improve pulmonary status. Interruption of ventilator support would lead to decline of health status. COPD causing recurrent hypercapnic respiratory failure with a PaCo2 of 84 --> 75 with BiPAP. Patient would benefit greatly from noninvasive ventilation which would improve lung function and potentially reduce worsening of symptoms. A BiPAP would be ineffective as patient requires a volume targeted mode. Interruption of ventilator support would lead to a decline of health status. NIMV settings should be AVAPS-AE; Breath rate: auto; Inspiratory time:auto; Sigh: off; Tidal Volume: 350-450, PS min: 4-10 PS max: 12-20; EPAP min: 6-10; EPAP max: 10-16; AVAPS rate: 14 during sleep and as needed --Active smoker > [id number] smoking history Positive quitting explained to the patient in depth --Probable FAY/OHS Recommend outpatient polysomnography -- For diffuse tree-in-bud opacities would recommend repeat CT chest to be done in 3 months Plan: Continue with Brovana and budesonide to the regimen along with hypertonic saline and flutter valve, recommend Trelegy 100 or BrezTri on discharge Consider transitioning Solu-Medrol to prednisone 40 mg for 3 days followed by 20 mg for 4 days and then stop Keep O2 saturation between 88-92%, do not over-oxygenate the patient Patient will likely need oxygen even at home. Case management is already working on getting the patient AVAPS machine BiPAP nightly and as needed shortness of breath Case was discussed with primary team Please note the above document was generated using voice recognition software. It may contain grammatical, syntax or spelling errors.Any formal questions or concerns about the content, text or information contained within the body of this dictation should be directly addressed to the provider for clarification. Admission and Anticipated Discharge Date Admission Date: July 23, 2023 Subjective Patient seen and examined at bedside. No acute distress, no adverse events overnight. He was saturating 92-93% on 7 L nasal cannula, I went down to 5 L. He stated that he is feeling better. Did use his BiPAP machine at night Fair appetite, no nausea or vomiting Coughing up clear phlegm. No hemoptysis Denied any headache, no blurry vision Again asking if he could go home. Review of Systems 2 Review of Systems: All systems reviewed & are unremarkable except as noted in Subjective Physical Exam 2 Physical Exam: Constitutional: No acute distress HEENT: EOMI, PERRLA Respiratory system: Decreased air entry bilaterally, no rhonchi, no wheeze, positive crackles bilateral lower lobes CVS: S1-S2 positive, no murmurs or gallops Abdomen: Soft, nontender, nondistended, positive bowel sounds x4, obese Extremities: +2 pulses bilaterally radialis/ dorsalis pedis, no cyanosis, no edema Neuro: Awake alert oriented x3 Psych: Normal mood and affect G/U: No [place] Skin: no rashes, warm and dry Lymphatic: no cervical or axillary lymphadenopathy Results & Data Results & Data Vital Signs (Past 12 Hours) Vital Signs Temp Pulse Pulse Resp BP Pulse Ox O2 Del Method 07/27/23 03:24 36.5 C 76 18 146/77 H 89 L Nasal Cannula 07/27/23 00:43 86 20 97 07/27/23 00:27 76 18 98 BiPAP 07/26/23 22:11 37.1 C 83 18 153/71 H 90 Nasal Cannula 07/26/23 21:56 78 07/26/23 21:10 High Flow Nasal Cannula 07/26/23 19:46 74 18 91 Nasal Cannula O2 Flow Rate FiO2 07/27/23 03: 8.0 07/27/23 00:43 40 07/27/23 00:27 40 07/26/23 22:11 8.0 07/26/23 21:56 07/26/23 21:10 6 07/26/23 19:46 6 Laboratory Results 07/27/23 06:27 07/27/23 06:27 PG Care Time/CCT Total # of Minutes Spent Total Time Spent with Patient: Total time spent is greater than 50% in coordination of care (as documented) at patient's floor/unit and/or counseling patient: Coding Level of Care Code 92960 SUB INP/OBS CARE 2/35MIN Diagnoses Acute respiratory failure with hypoxia and hypercapnia J96.01; J96.02 Acute on chronic respiratory acidosis J96.02; J96.12 Tobacco abuse Z72.0 SOB (shortness of breath) R06.02 COPD with emphysema J43.9
[2023-07-27] MEDS: LANTUS PER UNIT CHARGE SC SCH (08:20)
[2023-07-27] MEDS: methylPREDNISolone 40 MG in SYRINGE 0 ML IV SCH (08:21)
--- NOTE | 2023-07-27 09:49 | Pharmacy Report ---
Pharmacy Glycemic Short Note 2 - Date of Service July 27, 2023 - Glycemic Short BSG Results (Last 24 hours): 07/26/23 07/26/23 07/26/23 11:57 16:35 20:42 Glucose POC Glucose 159 H 89 103 H 07/27/23 07/27/23 06:27 07:43 Glucose 81 POC Glucose 89 OUTPATIENT ANTIDIABETIC REGIMEN: * Metformin 500 mg PO BIDM * Empagliflozin 10 mg PO AM * HbA1c: 7.3% (07/24/23) ASSESSMENT: 07/26: * Mr. Albert received 37 units of insulin yesterday, 20 basal + 17 bolus. BSGs were: 97-684-09-103 mg/dL. * Fasting BSG below goal again today at 89 mg/dL. Will reduce basal further today by approximately another ~20%. * No change to bolus insulin at this time. Remains on 40 mg of IV SoluMedrol daily. Tolerating diet. 07/25: * Kamran received 47 units of insulin yesterday (35 units basal + 12 units bolus). * Patient remains on methylprednisolone 40 mg IV. Reduced from q8h to daily today. * Discrepancy in fasting BSG values, lab draw resulted at 218 and POC resulted at 86 mg/dL. Patient did not receive insulin in between these values. Delayed administration of basal insulin to lunchtime. Current insulin dosing is basal heavy. Will reduce Lantus dose significantly due to this and decrease in steroids. * Loosen novolog parameters 07/24: * Patient received 57 units of insulin yesterday, 35 units basal, fasting BSG 132mg/dl - continue basal. * BSGs also improved after tightening CF/CR to 15/5 yesterday, continue this as patient continues on Nicolette-Medrol 40mg IV Q8H - loosen as steroids are tapered. 07/23: * ANSHU is a 68 year old male who presented to ED evening of 07/22 due to shortness of breath, which was worsened on exertion * Patient w acute respiratory failure w/ hypoxia and hypercapnia, no prior hx of COPD * 10 mg IV dexamethasone x 1 given in ED, followed by methylprednisolone 60 mg IV q8h * Patient w/ reasonably well-controlled T2DM as an outpatient w/ oral agents only * Hyperglycemic on presentation > 200 mg/dL * Will be aggressive w/ initial insulin regimen due to high-dose steroids PLAN FOR INPATIENT GLYCEMIC CONTROL: * Hold outpatient oral diabetes medications * Basal insulin * Lantus 15 units SC daily * Bolus insulin * NovoLog per scale ACHS or Q6hrs while NPO * Goal Range: Low 110 mg/dL - High 140 mg/dL * Correction Factor: 20 mg/dL/unit * Nutritional / Prandial insulin per carb ratio of 1 unit per 6 grams CHO consumed
--- NOTE | 2023-07-27 13:19 | Hospitalist Progress Note ---
Date of Service July 27, 2023 Assessment & Plan (1) Severe sepsis: Plan: 2nd to b/l pneumonia resolved blood cx's negative transitioning from IV abx today to PO levaquin to complete his 7 day course (2) Acute respiratory failure with hypoxia and hypercapnia: Plan: 2nd to b/l pneumonia + probable COPD exacerbation improving albeit slowly sed rate/crp markedly elevated suggestive of infectious/inflammatory process no evidence of PE on his admission CTA chest required BIPAP for 12+ hours following admission now down to NC O2 during the day, BIPAP at HS - but using latter sparingly cont bronchodilators, IV abx, and IV steroids will stop solumedrol, change to prednisone 40mg daily appreciate pulmonary consultation & recs no response to lasix, and echo wnl despite elevated BNP - unlikely that decompensated CHF played any role in his presentation keep sats 90-92% cont BIPAP at HS and naps Dr Hartman ordered Trilogy for him for home use; compliance will be an issue I suspect cont to wean O2 as tolerated I've counseled him multiple times he is simply on too much O2 to safely go home at this time (3) Pneumonia: Plan: b/l improving clinically cont rocephin - day #5 cont zithromax - day #5 stop the above; change to PO levaquin to complete 7 days in total of IV/PO abx biofire resp panel noted to be negative legionella urine ag returned negative supportive care with nebs, O2, BIPAP, etc (4) Tobacco abuse: Plan: current smoker, 2 PPD 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 patch 21mg/day (5) Acute exacerbation of chronic obstructive pulmonary disease: Plan: patient does not have a formal dx of COPD but likely has such based on emphysematous changes on imaging, long-standing tobacco history, etc treat for "COPD exacerbation" with IV steroids, nebs, etc steroids to be weaned again today appreciate pulmonary consult desperately needs to quit smoking (6) Hypomagnesemia: Plan: repleted resolved (7) DM2 (diabetes mellitus, type 2): Plan: hba1c 7.3% holding PO meds lantus-novolog appreciate pharmacy glycemic consult & recs (8) Hypertension: Plan: Continue metoprolol (9) Anxiety: Plan: Continue escitalopram (10) MCI (mild cognitive impairment) with memory loss: Plan: with superimposed metabolic encephalopathy - resolved CT head neg for acute findings (11) CAD (coronary artery disease): Plan: h/o CABG - [facility] - 02/2018 4-vessel CABG --> MATT to LAD, VG to OM2, VG to PDA-PRL cont metoprolol cont asa cont LUIS cont statin mild troponin elevation likely due to myocardial demand ischemia rather than ACS (12) Urinary incontinence: Plan: improved was likely due to altered MS in the face of his sepsis, resp failure, CO2 retention, etc (13) Acute metabolic encephalopathy: Plan: 2nd to elevated CO2, low O2, severe sepsis, pneumonia, etc resolved continue scheduled seroquel 25mg at HS but increase to 37.5mg as he is not sleeping well AVOID BENZOS/sedatives in light of hypercapnia (14) Multiple falls: Plan: unwitnessed last one was this past weekend - details uncertain head CT and c-spine CT w/o fracture, ICH, etc reported numbness in distal LLE earlier this week but resolved CPK noted to be wnl (15) DVT prophylaxis: Plan: lovenox once daily (16) S/P coil embolization of cerebral aneurysm: Plan: history of right ICA supraclinoid aneurysm s/p coil embolization 05/2015 at [facility] CT head neg for acute findings (17) Depression: Plan: is on remeron 45mg HS and lexapro 20mg daily daughter voices concern about ongoing depression I suspect such as well he has made comments that he doesn't care if he goes home and dies offered psych consult - he is agreeable psych consult requested for med management and recs Plan daughter updated by phone on 07/24 and updated at bedside today cont PT/OT progressing Admission and Anticipated Discharge Date Admission Date: July 23, 2023 Subjective tele - [facility] staff report he only used BIPAP for 1-2 hours last night he was sitting in chair during the visit daughter at bedside he asked multiple times when he can go home he said "I'm going home Sunday!" daughter thinks he has been depressed since his left him in the past he keeps to himself at home only watches TV and reads books and cuts his lawn sleeping poorly eating has improved still coughing but improved Review of Systems Review of Systems: cv - no orthopnea, no edema, no chest pain pulm - no dyspnea at rest but CONNELLY GI - no abd pain or N/V neuro - no paresthesias psych - a/o x 3 today including the day of the week Physical Exam Physical Exam: gen - awake, alert, oriented; sitting in chair comfortably neck - no obvious JVD mouth - MMM heart - RRR, s1 s2, no murmur lungs - b/l basilar crackles, mild end-exp wheezes b/l, no increased work of breathing abd - soft NT ND BS+ ext - no edema, pulses 2+ b/l psych - a/o x 3; restricted affect Results & Data Results & Data Vital Signs (Past 12 Hours) Vital Signs Temp Pulse Pulse Resp BP Pulse Ox O2 Del Method 07/27/23 11:30 37.0 C 78 16 140/68 95 Nasal Cannula 07/27/23 08:00 High Flow Nasal Cannula 07/27/23 08:00 37.0 C 81 18 153/68 H 92 Nasal Cannula 07/27/23 07:30 84 07/27/23 03:24 36.5 C 76 18 146/77 H 89 L Nasal Cannula O2 Flow Rate 07/27/23 11:30 07/27/23 08:00 7 07/27/23 08:00 8 07/27/23 07:30 07/27/23 03:24 8.0 Laboratory Results Laboratory Results - last 48 hr 07/25/23 07/26/23 07/26/23 10:30 11:57 16:35 POC Glucose 159 H 89 Urine Legionella Ag SEE NOTE 07/26/23 07/27/23 07/27/23 20:42 06:27 07:43 WBC 14.10 H RBC 5.27 Hgb 15.5 Hct 48.7 MCV 92.4 MCH 29.4 MCHC 31.8 L RDW Std Deviation 48.8 H RDW Coeff of Christy 14.5 Plt Count 271 MPV 9.8 Absolute Nucleated RBC 0.03 Nucleated RBC % (auto) 0.2 Sodium 143 Potassium 3.9 Chloride 102 Carbon Dioxide 37 H Anion Gap 4 BUN 20 Creatinine 0.79 Est Cr Clr Drug Dosing 109.8 Est GFR ( Amer) 106.2 Est GFR (Non-Af Amer) 91.6 BUN/Creatinine Ratio 25.3 H Glucose 81 POC Glucose 103 H 89 Calcium 9.2 07/27/23 07/27/23 11:51 16:41 POC Glucose 165 H 130 H Diagnostic Findings blood cx's negative to date PG Care Time/CCT Total # of Minutes Spent Total Time Spent with Patient: Total time spent is greater than 50% in coordination of care (as documented) at patient's floor/unit and/or counseling patient: Coding Level of Care Code 96639 SUB INP/OBS CARE 3/50MIN Diagnoses Severe sepsis A41.9; R65.20 Acute respiratory failure with hypoxia and hypercapnia J96.01; J96.02 Pneumonia J18.9 Tobacco abuse Z72.0 Acute exacerbation of chronic obstructive pulmonary disease J44.1 Hypomagnesemia E83.42 DM2 (diabetes mellitus, type 2) E11.9 Hypertension I10 Anxiety F41.9 MCI (mild cognitive impairment) with memory loss G31.84 CAD (coronary artery disease) I25.10 Urinary incontinence R32 Acute metabolic encephalopathy G93.41 Multiple falls R29.6 DVT prophylaxis Z29.9 S/P coil embolization of cerebral aneurysm Z98.890 Depression F32.A
[2023-07-27] MEDS: levoFLOXacin 750 MG TAB PO ONE (15:31)
[2023-07-27] MEDS: MELATONIN 3 MG TAB PO SCH (21:48)
[2023-07-27] MEDS: QUEtiapine FUMARATE 25 MG TABLET PO SCH (21:48)
--- NOTE | 2023-07-28 07:18 | Pulmonology Progress Note ---
Date of Service July 28, 2023 Assessment & Plan (1) Acute respiratory failure with hypoxia and hypercapnia: (2) Acute on chronic respiratory acidosis: (3) Tobacco abuse: (4) SOB (shortness of breath): (5) COPD with emphysema: Plan CT chest 07/23/2023 personally reviewed: Minimal centrilobular emphysema appreciated bilaterally Tree-in-bud opacities appreciated in upper and lower lobes more pronounced in the lower lobes Motion degraded study Minimal mediastinal lymphadenopathy ABG 07/23/2023: 7.17/84/105 on 50%--> 07/25/2023 AB.32 /69 /72 on 40% -- Acute hypercapnic hypoxic respiratory failure Likely secondary to COPD exacerbation with multilobar pneumonia Denies any diarrhea prior to coming to the hospital Procalcitonin 0.42, nasal MRSA negative Respiratory bio fire negative for everything --COPD with emphysema Not on any standing inhalers at home Would recommend Trelegy 100 or BrezTri on discharge Due to chronic respiratory failure consequent to COPD, patient now requires a noninvasive home ventilator. Bilevel therapy with and without a rate would be ineffective as patient requires a volume targeted mode. Ventilation is required to decrease work of breathing and improve pulmonary status. Interruption of ventilator support would lead to decline of health status. COPD causing recurrent hypercapnic respiratory failure with a PaCo2 of 84 --> 75 with BiPAP. Patient would benefit greatly from noninvasive ventilation which would improve lung function and potentially reduce worsening of symptoms. A BiPAP would be ineffective as patient requires a volume targeted mode. Interruption of ventilator support would lead to a decline of health status. NIMV settings should be AVAPS-AE; Breath rate: auto; Inspiratory time:auto; Sigh: off; Tidal Volume: 350-450, PS min: 4-10 PS max: 12-20; EPAP min: 6-10; EPAP max: 10-16; AVAPS rate: 14 during sleep and as needed --Active smoker > 915-slut-ilyo smoking history Positive quitting explained to the patient in depth --Probable FAY/OHS Recommend outpatient polysomnography -- For diffuse tree-in-bud opacities would recommend repeat CT chest to be done in 3 months Plan: Continue with Brovana and budesonide to the regimen along with hypertonic saline and flutter valve, recommend Trelegy 100 or BrezTri on discharge Continue with prednisone 40 mg for 3 days followed by 20 mg for 4 days and then stop Keep O2 saturation between 88-92%, do not over-oxygenate the patient Patient will likely need oxygen even at home. Case management is already working on getting the patient AVAPS machine BiPAP nightly and as needed shortness of breath Case was discussed with primary team No further recommendation from pulmonary perspective, will sign off Please call directly with any questions Please note the above document was generated using voice recognition software. It may contain grammatical, syntax or spelling errors.Any formal questions or concerns about the content, text or information contained within the body of this dictation should be directly addressed to the provider for clarification. Admission and Anticipated Discharge Date Admission Date: July 23, 2023 Subjective Patient seen and examined at bedside. No acute distress, no adverse events overnight He was saturating 92% on 7 L nasal cannula, I went down to 5 L. Patient's niece was in the room. He says he is feeling much better. Unfortunately did not use the BiPAP overnight. Positive using aspirin to the patient that Occasional cough with clear phlegm. Denies any hemoptysis. No headache, no blurry vision Denies any dizziness Review of Systems 2 Review of Systems: All systems reviewed & are unremarkable except as noted in Subjective Physical Exam 2 Physical Exam: Constitutional: No acute distress HEENT: EOMI, PERRLA Respiratory system: Decreased air entry bilaterally, no rhonchi, no wheeze, positive crackles bilateral lower lobes CVS: S1-S2 positive, no murmurs or gallops Abdomen: Soft, nontender, nondistended, positive bowel sounds x4, obese Extremities: +2 pulses bilaterally radialis/ dorsalis pedis, no cyanosis, no edema Neuro: Awake alert oriented x3 Psych: Normal mood and affect G/U: No [place] Skin: no rashes, warm and dry Lymphatic: no cervical or axillary lymphadenopathy Results & Data Results & Data Vital Signs (Past 12 Hours) Vital Signs Temp Pulse Pulse Resp BP Pulse Ox O2 Del Method 07/28/23 07:04 80 24 84 L Nasal Cannula 07/28/23 04:05 36.4 C L 66 19 156/77 H 91 High Flow Nasal Cannula 07/28/23 00:09 36.4 C L 79 18 130/69 90 High Flow Nasal Cannula 07/27/23 21:56 84 07/27/23 21:50 High Flow Nasal Cannula 07/27/23 20:02 36.4 C L 86 18 180/83 H 94 High Flow Nasal Cannula 07/27/23 19:32 87 18 89 L Nasal Cannula O2 Flow Rate 07/28/23 07:04 07/28/23 04:05 2 07/28/23 00:09 2 07/27/23 21:56 07/27/23 21:50 6 07/27/23 20:02 2 07/27/23 19:32 6 Laboratory Results 07/27/23 06:27 07/27/23 06:27 PG Care Time/CCT Total # of Minutes Spent Total Time Spent with Patient: Total time spent is greater than 50% in coordination of care (as documented) at patient's floor/unit and/or counseling patient: Coding Level of Care Code 75363 SUB INP/OBS CARE 2/35MIN Diagnoses Acute respiratory failure with hypoxia and hypercapnia J96.01; J96.02 Acute on chronic respiratory acidosis J96.02; J96.12 Tobacco abuse Z72.0 SOB (shortness of breath) R06.02 COPD with emphysema J43.9
[2023-07-28] MEDS: predniSONE 20 MG TAB PO SCH (08:47)
[2023-07-28] MEDS: levoFLOXacin 750 MG TAB PO SCH (12:16)
--- NOTE | 2023-07-28 14:38 | Psychiatric Consultation ---
Date of Consultation July 28, 2023 Impression / Recommendations Impression This is a gentleman has been through quite a bit. His recently left him. He has had a long life of some stressors and trauma. He has had chronic problems with using cannabis and much more distant problems with using heavier drugs like cocaine. Lately, he has had some pretty severe medical issues including the problems with his breathing. He tends to be a worrier anyway and his mood is definitely down connected to what is been going on lately with him. However, I do not feel he is an acute danger to himself or others. He is interested, however, in getting help. (1) Generalized anxiety disorder: (2) Major depressive disorder, recurrent, mild: (3) Trauma and stressor-related disorder: (4) Cannabis use disorder, moderate, dependence: Plan 1. I discussed the case with Dr. Coker. 2. I am not sure exactly all the psychiatric medications he has been on throughout his life, but it looks like Lexapro and Remeron are the main ones. The rest have been more recent. I would suggest restarting the Cymbalta and titrating it up towards 60 mg daily over a week or so. I would probably leave the Remeron as it is. The combination should offer some good spectrum of neurotransmitter support. The buspirone I would leave as well because that may help augment the antidepressants. 3. I would also consider getting rid of the Seroquel. My understanding from Dr. Coker is that the medicine was used because the patient was . That seems to be better now. If he gets worse, go ahead and restart the Seroquel. 4. Given his age and medical status, we need to be careful using lorazepam as it could make him more likely to fall. 5. Patient is interested in individual therapy after discharge. The psychiatric liaison nurse can help with that on Sunday. 6. He does not require psychiatric inpatient hospitalization and I do not think that he is an acute danger to himself from a psychiatric point of view. 7. He is not interested in stopping his marijuana use, but it does not seem to be a major issue. Today I spent about 90 minutes on the case. This included meeting with the patient, reviewing the chart, discussing the case with the nurse liaison, discussing the case with Dr. Coker, and documentation. Psych History Identifying Data "Casey Mitchell" is a 68-year-old male from [place], [place]. He is in the hospital due to sepsis and acute respiratory failure with hypoxia and hypercapnia. I was asked to see him by Dr. Coker because of some depressive symptoms and the number of psychiatric medications that he is taking. Chief Complaint "I called my good friend and had him get a hold of my daughter and her . Otherwise I do not know." History of Present Illness Patient has been here in the hospital since July 22 because of difficulties with his breathing. He does not really remember the events that led to him coming into the hospital. Today, however, he is feeling somewhat better. He still coughed quite a bit during her conversation. He has been under quite a bit of stress besides just his medical issues. He was for 30 years and about 15 months ago his "just never came home." She is somewhere around [place], but she is no longer living with him. He does not know other marital status at the moment. Allegedly, she is an alcoholic. Patient himself has been sober from alcohol for 30 years. He does smoke some marijuana on occasional evenings he says. He has been smoking cigarettes since he was 10 years old. He admits that about 30 years ago he also was using cocaine. He is currently living alone with his 2 your keys. 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 Right now he is only getting income from Social Security. At age 64, he underwent a triple bypass and also had 2 brain aneurysms. Currently, he is not involved in any organized activities or gnosticist. He does enjoy playing billiards at a local bar. He is not in a relationship. He says he has been 6 times, twice to the same woman. He has no kids of his own, but the son and daughter of his recent are people he considers his current son and daughter because he has been around them for so long. He has no legal issues. He is living in a trailer on [address] [place] outside of [facility]. Sleep has been okay. He says he tends to be a night owl and has some initial insomnia at times. He says he drinks about 4-5 bottles of Coca-Cola per day. His appetite is good but he mostly is eating instant foods because he does not like to cook. He describes his mood is "a combination of all" but he admits that he worries a lot about things. He tends to ruminate. There is no anhedonia. Energy has been poor lately. His concentration has been worse when he tries to read which is something he enjoys. He is says that he makes a lot of bad decisions and can be pretty stubborn. He does not really describe hopelessness. In fact, he mentioned that he does not know what is going to happen next but he says that he hopes that he will have some interesting adventure still. Sounds like he has a history of being reckless but not suicidal. He has no prior suicide attempts. No homicidal thoughts currently. No suicidal ideation. No self-harm. He one-time witnessed a friend when the patient was only 8 years old. I think that was pretty traumatic for him. He says that his father was a "hard ass." 1 time the patient had to spend 15 months and what sounds like juvenile alf when he and some friends had allegedly stolen several cases of beer. When asked about hallucinations he says he will sometimes catch something out of the corner of his eye and wondered if he actually saw what he thought he saw. He denies any auditory hallucinations or ideas of reference. He does worry a lot about money. He has never been manic. Past Psychiatric History Previous Psych History: Sounds like he has a history of substance issues, alcohol problems, depression, and anxiety. Possible PTSD as well. Outpatient Services: He has been getting medications from his primary care, he believes. Previous Psych Admissions: He has been in a number of treatment programs for substances including in [place] in the . He was also hospitalized once in the in [place] for psychiatric purposes. Currently, he gets his medications from a med tray from the pharmacy and so he does not really know what he is taking. Past Medication Trials: The only things I can gather from his list of meds in the computer chart are buspirone, mirtazapine, quetiapine, duloxetine, lorazepam, and escitalopram. Allergies Allergy/AdvReac Type Severity Reaction Status Date / Time sulfamethoxazole AdvReac Intermediate Dizziness Verified 07/23/23 20:04 trimethoprim AdvReac Intermediate Dizziness Verified 07/23/23 20:04 Home Medications Medication Instructions Recorded Confirmed Type acetaminophen 500 mg tablet 1,000 mg PO DIRECTED PRN Pain 04/29/19 07/23/23 History (Tylenol Extra Strength) metformin 500 mg tablet 500 mg PO BID #60 tabs 08/02/20 07/23/23 Rx escitalopram oxalate 20 mg tablet 20 mg PO QAM 09/19/20 07/23/23 History mirtazapine 45 mg tablet 45 mg PO QPM 09/19/20 07/23/23 History atorvastatin 40 mg tablet 40 mg PO QAM #90 tabs 02/27/22 07/23/23 Rx lisinopril 5 mg tablet 5 mg PO QAM #90 tabs 02/27/22 07/23/23 Rx metoprolol succinate 25 mg 25 mg PO QAM #90 tabs 02/27/22 07/23/23 Rx tablet,extended release 24 hr aspirin 81 mg tablet,delayed 81 mg PO DAILY #90 tabs 01/17/23 07/23/23 Rx release celecoxib 100 mg capsule (Celebrex) 100 mg PO BID 07/23/23 07/23/23 History empagliflozin 10 mg tablet 10 mg PO QAM 07/23/23 07/23/23 History (Jardiance) omeprazole 40 mg capsule,delayed 40 mg PO QPM 07/23/23 07/23/23 History release Patient History Medical History DM2 (diabetes mellitus, type 2) diagnosed 07/01/2020 with A1C of 8.0 Squamous cell carcinoma Postoperative atrial fibrillation MCI (mild cognitive impairment) with memory loss Insomnia Depression due to physical illness Cerebral arterial aneurysm CAD (coronary artery disease) Anxiety Surgical History History of tonsillectomy History of intracranial aneurysm 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 History of coronary artery bypass graft Family History Mother Cancer Sister Cancer of the brain Father Prostate cancer Denies family history of Ovarian cancer Myocardial infarction Breast cancer Colorectal cancer Social History Smoking Status: Current every day smoker Tobacco Type: Cigarettes packs per day: 1.5; Cigarettes Per Day: 40; Do You Dip or Chew Tobacco: No; Hx Alcohol Use: No Hx Substance Use: Yes Last Used Substance: Days (ago) Last Used Substance Other:: 07/20/23 Preferred Language: Sami Communication Ability: Effective [employer]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 He was a little bit off on the date thinking it was Friday, July 14, 2023. He was disheveled in hospital gown. Eye contact was good. Speech was normal. Mood was "a combination of all." Affect was bright. Thought process was logical and goal-directed. There was no evidence of any hallucinations or delusions. Patient denied any suicidal or homicidal thoughts. Memory was good; he knew his date of , the president's name, and the [facility]. Concentration was fair. I asked him to perform serial threes and the answers he gave me were 17, 14, 11, 8, and 6. No abnormal movements were seen. I did not evaluate his gait. Insight and judgment were fair. Vital Signs (Past 24 Hours): Last Vital Signs Temp 36.5 C 07/28/23 10:34 Pulse 85 07/28/23 10:34 Resp 24 07/28/23 10:34 BP 142/72 H 07/28/23 10:34 Pulse Ox 93 07/28/23 10:34 O2 Del Method Nasal Cannula 07/28/23 10:34 O2 Flow Rate 7.0 07/28/23 07:37 FiO2 40 07/27/23 00:43 Review of Systems Patient denied any cold or flu. No headache or fever. No problems with eyes, ears, nose, teeth, or swallowing. No pain or swelling in their neck. He has been coughing and having shortness of breath. He denies chest pain, racing heartbeat, or irregular heart rate. No diarrhea, upset stomach, or constipation. No dysuria, problems emptying their bladder, initiating a urine stream, or hematuria; he will occasionally have urinary urgency. He has been having several skin tears easily he says lately. No concerns about an STD. No muscle weakness, numbness, tingling, or tremors. No broken bones. No problems with their joints. No problems with their feet. He says that he is somewhat of a bleeder. Results & Data (PSY) Laboratory Results His latest CBC had an elevated white blood cell count at 14.1 BMP yesterday had a carbon dioxide high at 37. Blood sugars have lately been in the mid 100s. Troponin was elevated on July 23. CRP was elevated on July 23. Medications Administered Albuterol (Albut/Ipratrop 3mg/0.5mg Neb 3 Ml Vial) 3 ml INH Q6R ANALIA Stop: 08/23/23 00:59 Last Admin: 07/28/23 07:04 Dose: Not Given Documented By: Admin: 07/28/23 00:51 Dose: Not Given Documented By: Admin: 07/27/23 19:28 Dose: Not Given Documented By: Admin: 07/27/23 14:17 Dose: 3 ml Documented By: Admin: 07/27/23 07:21 Dose: Not Given Documented By: Admin: 07/27/23 00:26 Dose: 3 ml Documented By: Admin: 07/26/23 19:45 Dose: Not Given Documented By: Admin: 07/26/23 13:27 Dose: 3 ml Documented By: Admin: 07/26/23 07:27 Dose: Not Given Documented By: Admin: 07/26/23 00:35 Dose: 3 ml Documented By: Admin: 07/25/23 19:36 Dose: Not Given Documented By: Admin: 07/25/23 13:29 Dose: 3 ml Documented By: Admin: 07/25/23 06:48 Dose: 3 ml Documented By: Admin: 07/25/23 00:45 Dose: 3 ml Documented By: EMThalia Admin: 07/24/23 19:34 Dose: Not Given Documented By: Admin: 07/24/23 12:40 Dose: 3 ml Documented By: EMThalia(2) Admin: 07/24/23 07:06 Dose: 3 ml Documented By: Admin: 07/24/23 01:08 Dose: 3 ml Documented By: SARAH Aspirin (Aspirin 81 Mg Ectab) 81 mg PO DAILY ANALIA Stop: 08/23/23 08:59 Last Admin: 07/28/23 08:47 Dose: 81 mg Documented By: Admin: 07/27/23 08:21 Dose: 81 mg Documented By: Admin: 07/26/23 08:02 Dose: 81 mg Documented By: Admin: 07/25/23 09:33 Dose: 81 mg Documented By: Admin: 07/24/23 09:02 Dose: 81 mg Documented By: KERVIN Atorvastatin Calcium (Atorvastatin 40 Mg Tab) 40 mg PO QAM ANALIA Stop: 08/23/23 08:59 Last Admin: 07/28/23 08:47 Dose: 40 mg Documented By: Admin: 07/27/23 08:21 Dose: 40 mg Documented By: Admin: 07/26/23 08:04 Dose: 40 mg Documented By: Admin: 07/25/23 09:33 Dose: 40 mg Documented By: Admin: 07/24/23 09:02 Dose: 40 mg Documented By: EKRVIN Budesonide (Budesonide 0.25 Mg/2 Ml Vial (Pulmicort)) 0.25 mg NEB BIDR ANALIA Stop: 08/23/23 18:59 Last Admin: 07/28/23 07:04 Dose: 0.25 mg Documented By: Admin: 07/27/23 19:27 Dose: 0.25 mg Documented By: Admin: 07/27/23 07:22 Dose: Not Given Documented By: Admin: 07/26/23 19:45 Dose: 0.25 mg Documented By: Admin: 07/26/23 07:28 Dose: Not Given Documented By: Admin: 07/25/23 19:36 Dose: 0.25 mg Documented By: Admin: 07/25/23 06:49 Dose: 0.25 mg Documented By: Admin: 07/24/23 19:33 Dose: 0.25 mg Documented By: CHRISTI Enoxaparin Sodium (Enoxaparin Inj 40 Mg/0.4 Ml Syr) 40 mg SQ Q24H ANALIA Stop: 08/23/23 08:59 Last Admin: 07/28/23 08:45 Dose: 40 mg Documented By: Admin: 07/27/23 08:24 Dose: 40 mg Documented By: Admin: 07/26/23 08:03 Dose: 40 mg Documented By: Admin: 07/25/23 09:33 Dose: 40 mg Documented By: Admin: 07/24/23 09:02 Dose: 40 mg Documented By: KERVIN Escitalopram Oxalate (Escitalopram Oxalate 20 Mg Tab) 20 mg PO QAM ANALIA Stop: 08/23/23 08:59 Last Admin: 07/28/23 08:47 Dose: 20 mg Documented By: Admin: 07/27/23 08:22 Dose: 20 mg Documented By: Admin: 07/26/23 08:02 Dose: 20 mg Documented By: Admin: 07/25/23 09:33 Dose: 20 mg Documented By: Admin: 07/24/23 09:03 Dose: 20 mg Documented By: KERVIN Formoterol Fumarate (Formoterol 20 Mcg/2 Ml Vial) 20 mcg INH BIDR ANALIA Stop: 08/23/23 18:59 Last Admin: 07/28/23 07:04 Dose: 20 mcg Documented By: Admin: 07/27/23 19:27 Dose: 20 mcg Documented By: Admin: 07/27/23 07:22 Dose: Not Given Documented By: Admin: 07/26/23 19:45 Dose: 20 mcg Documented By: Admin: 07/26/23 07:28 Dose: Not Given Documented By: Admin: 07/25/23 19:35 Dose: 20 mcg Documented By: Admin: 07/25/23 06:49 Dose: 20 mcg Documented By: Admin: 07/24/23 19:34 Dose: 20 mcg Documented By: CHRISTI Guaifenesin (Guaifenesin 600 Mg Tabcr) 1,200 mg PO Q12 ANALIA Stop: 08/23/23 08:59 Last Admin: 07/28/23 08:47 Dose: 1,200 mg Documented By: Admin: 07/27/23 21:48 Dose: 1,200 mg Documented By: MAIK(2) Admin: 07/27/23 08:21 Dose: 1,200 mg Documented By: Admin: 07/26/23 21:05 Dose: 1,200 mg Documented By: MAIK(2) Admin: 07/26/23 08:02 Dose: 1,200 mg Documented By: Admin: 07/25/23 20:23 Dose: 1,200 mg Documented By: Admin: 07/25/23 09:33 Dose: 1,200 mg Documented By: Admin: 07/24/23 21:14 Dose: 1,200 mg Documented By: Admin: 07/24/23 09:03 Dose: 1,200 mg Documented By: KERVIN Insulin Aspart (Insulin Aspart Per Unit Charge) 0 units SC ACHS [facility]; Protocol Stop: 08/22/23 23:29 Last Admin: 07/28/23 12:16 Dose: 14 units Documented By: MATI Co-signed By: INES Admin: 07/28/23 08:41 Dose: 6 units Documented By: SS Co-signed By: ALLIE Admin: 07/27/23 21:54 Dose: Not Given Documented By: MAIK(2) Admin: 07/27/23 17:18 Dose: 8 units Documented By: MATI Co-signed By: HANH Admin: 07/27/23 12:08 Dose: 13 units Documented By: MATI Co-signed By: FABIEN Admin: 07/27/23 08:20 Dose: 8 units Documented By: MATI Co-signed By: MAGI Admin: 07/26/23 21:10 Dose: Not Given Documented By: MAIK(2) Admin: 07/26/23 17:07 Dose: 3 units Documented By: SYLVIAB Co-signed By: NM Admin: 07/26/23 12:39 Dose: 8 units Documented By: LINDA Co-signed By: NATY Admin: 07/26/23 08:36 Dose: 6 units Documented By: LINDA Co-signed By: MS Admin: 07/25/23 20:39 Dose: Not Given Documented By: Admin: 07/25/23 17:28 Dose: 12 units Documented By: ALLIE Co-signed By: FABIEN Admin: 07/25/23 13:03 Dose: Not Given Documented By: Admin: 07/25/23 10:27 Dose: Not Given Documented By: Admin: 07/24/23 21:31 Dose: 1 units Documented By: NILO Co-signed By: OLIVIA Admin: 07/24/23 17:57 Dose: 4 units Documented By: KERVIN Co-signed By: LINDA Admin: 07/24/23 13:11 Dose: 16 units Documented By: KERVIN Co-signed By: AFRICA Admin: 07/24/23 09:08 Dose: 1 units Documented By: KERVIN Co-signed By: PRIETO Admin: 07/23/23 23:31 Dose: 5 units Documented By: BRONSON Co-signed By: OLIVIA Insulin Glargine (Lantus Per Unit Charge) 15 units SC DAILY [facility]; Protocol Stop: 08/25/23 12:14 Last Admin: 07/28/23 08:41 Dose: 15 units Documented By: MATI Co-signed By: DTT Admin: 07/27/23 08:20 Dose: 15 units Documented By: MATI Co-signed By: MAGI Levofloxacin (Levofloxacin 750 Mg Tab) 750 mg PO DAILY@1100 [facility]; Protocol Stop: 07/29/23 11:01 Last Admin: 07/28/23 12:16 Dose: 750 mg Documented By: MATI Lisinopril (Lisinopril 5 Mg Tab) 5 mg PO [facility] Stop: 08/23/23 08:59 Last Admin: 07/28/23 08:47 Dose: 5 mg Documented By: Admin: 07/27/23 08:22 Dose: 5 mg Documented By: Admin: 07/26/23 08:04 Dose: 5 mg Documented By: Admin: 07/25/23 09:33 Dose: 5 mg Documented By: Admin: 07/24/23 09:03 Dose: 5 mg Documented By: KERVIN Melatonin (Melatonin 3 Mg Tab) 6 mg PO [facility] Stop: 08/26/23 20:59 Last Admin: 07/27/23 21:48 Dose: 6 mg Documented By: MAIK(2) Metoprolol Succinate (Metoprolol Succ 25mg Ext Rel Tab) 25 mg PO [facility] Stop: 08/23/23 08:59 Last Admin: 07/28/23 08:47 Dose: 25 mg Documented By: Admin: 07/27/23 08:22 Dose: 25 mg Documented By: Admin: 07/26/23 08:04 Dose: 25 mg Documented By: Admin: 07/25/23 09:33 Dose: 25 mg Documented By: Admin: 07/24/23 09:03 Dose: 25 mg Documented By: KERVIN Mirtazapine (Mirtazapine Soltab 15 Mg) 45 mg PO QPM ANALIA Stop: 08/23/23 20:59 Last Admin: 07/27/23 21:47 Dose: 45 mg Documented By: MAIK(2) Admin: 07/26/23 21:06 Dose: 45 mg Documented By: MAIK(2) Admin: 07/25/23 20:23 Dose: 45 mg Documented By: Admin: 07/24/23 21:16 Dose: 45 mg Documented By: NILO Miscellaneous (Remove Nicoderm Patch) 1 each N/A QAM ANALIA Stop: 08/24/23 08:59 Last Admin: 07/28/23 08:48 Dose: 1 each Documented By: Admin: 07/27/23 08:25 Dose: 1 each Documented By: Admin: 07/26/23 08:30 Dose: 1 each Documented By: Admin: 07/25/23 09:34 Dose: 1 each Documented By: ALLIE Nicotine (Nicotine 21 Mg/24 Hr Tdsy) 21 mg TD QAM ANALIA Stop: 08/24/23 08:59 Last Admin: 07/28/23 08:45 Dose: 21 mg Documented By: Admin: 07/27/23 08:25 Dose: 21 mg Documented By: Admin: 07/26/23 08:05 Dose: 21 mg Documented By: Admin: 07/25/23 09:33 Dose: 21 mg Documented By: ALLIE Pantoprazole Sodium (Pantoprazole 40 Mg Tab) 40 mg PO QPM ANALIA Stop: 08/23/23 20:59 Last Admin: 07/27/23 21:49 Dose: 40 mg Documented By: MAIK(2) Admin: 07/26/23 21:06 Dose: 40 mg Documented By: MAIK(2) Admin: 07/25/23 20:24 Dose: 40 mg Documented By: Admin: 07/24/23 21:15 Dose: 40 mg Documented By: NILO Prednisone (Prednisone 20 Mg Tab) 40 mg PO QAM ANALIA Stop: 08/27/23 08:59 Last Admin: 07/28/23 08:47 Dose: 40 mg Documented By: MATI Quetiapine Fumarate (Quetiapine Fumarate 25 Mg Tablet) 37.5 mg PO HS ANALIA Stop: 04/28/24 20:59 Last Admin: 07/27/23 21:48 Dose: 37.5 mg Documented By: MAIK(2) Sodium Chloride (Sodium Chlor 7% 4 Ml Neb) 4 ml NEB BIDR ANALIA Stop: 08/23/23 18:59 Last Admin: 07/28/23 07:04 Dose: 4 ml Documented By: Admin: 07/27/23 19:27 Dose: 4 ml Documented By: Admin: 07/27/23 07:22 Dose: Not Given Documented By: Admin: 07/26/23 19:45 Dose: 4 ml Documented By: Admin: 07/26/23 07:28 Dose: Not Given Documented By: Admin: 07/25/23 19:36 Dose: 4 ml Documented By: Admin: 07/25/23 06:49 Dose: 4 ml Documented By: Admin: 07/24/23 19:34 Dose: 4 ml Documented By: EMThalia Coding Level of Care Code [address] [facility] Int Hosp Care Lvl 3 Diagnoses Generalized anxiety disorder F41.1 Major depressive disorder, recurrent, mild F33.0 Trauma and stressor-related disorder F43.9 Cannabis use disorder, moderate, dependence F12.20
--- NOTE | 2023-07-28 17:47 | Hospitalist Progress Note ---
Date of Service July 28, 2023 Assessment & Plan (1) Severe sepsis: Plan: 2nd to b/l pneumonia resolved blood cx's negative (2) Acute respiratory failure with hypoxia and hypercapnia: Plan: 2nd to b/l pneumonia + probable COPD exacerbation improving required BIPAP for 12+ hours following admission now down to NC O2 during the day, BIPAP at HS encouraged but he is not using it cont bronchodilators, abx, and steroids appreciate pulmonary consultation & recs no response to lasix, and echo wnl despite elevated BNP - unlikely that decompensated CHF played any role in his presentation keep sats 90-92% Dr Hartman ordered Trilogy for him for home use; compliance will be an issue I suspect cont to wean O2 as tolerated he knows we have to wean him down to at least 2-3 L of NC O2 to get him home safely (3) Pneumonia: Plan: b/l improving clinically s/p 5 days of zithromax and rocephin today is day #1 of 2 of levaquin then stop all abx biofire resp panel noted to be negative legionella urine ag returned negative supportive care with nebs, O2, BIPAP, etc (4) Tobacco abuse: Plan: current smoker, 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 (5) Acute exacerbation of chronic obstructive pulmonary disease: Plan: patient does not have a formal dx of COPD but likely has such based on emphysematous changes on imaging, long-standing tobacco history, etc treat for "COPD exacerbation" with steroids, nebs, etc plan prednisone 40mg daily x 3 days, then cont to wean appreciate pulmonary consult desperately needs to quit smoking (6) Hypomagnesemia: Plan: repleted resolved (7) DM2 (diabetes mellitus, type 2): Plan: hba1c 7.3% holding PO meds lantus-novolog appreciate pharmacy glycemic consult & recs (8) Hypertension: Plan: Continue metoprolol (9) Anxiety: Plan: plan is to wean off lexapro and start cymbalta (10) MCI (mild cognitive impairment) with memory loss: Plan: with superimposed metabolic encephalopathy - resolved with supportive care & seroquel CT head neg for acute findings (11) CAD (coronary artery disease): Plan: h/o CABG - [facility] - 02/2018 4-vessel CABG --> MATT to LAD, VG to OM2, VG to PDA-PRL cont metoprolol cont asa cont LUIS cont statin mild troponin elevation likely due to myocardial demand ischemia rather than ACS (12) Urinary incontinence: Plan: improved was likely due to altered MS in the face of his sepsis, resp failure, CO2 retention, etc (13) Acute metabolic encephalopathy: Plan: 2nd to elevated CO2, low O2, severe sepsis, pneumonia, etc resolved continue scheduled seroquel HS but try to wean off next 2-3 days AVOID BENZOS/sedatives in light of hypercapnia (14) Multiple falls: Plan: unwitnessed last one was this past weekend - details uncertain head CT and c-spine CT w/o fracture, ICH, etc reported numbness in distal LLE earlier this week but resolved CPK noted to be wnl (15) DVT prophylaxis: Plan: lovenox once daily (16) S/P coil embolization of cerebral aneurysm: Plan: history of right ICA supraclinoid aneurysm s/p coil embolization 05/2015 at [facility] CT head neg for acute findings (17) Depression: Plan: is on remeron 45mg HS and lexapro 20mg daily appreciate psych consult plan - wean off lexapro - cut dose back by 5mg every 3 days start cymbalta in [place] cont remeron 45mg HS try to wean off seroquel next few days Plan daughter updated at bedside again today cont PT/OT progressing Admission and Anticipated Discharge Date Admission Date: July 23, 2023 Subjective tele overnight wnl pt slept better overnight however, he did not use the BIPAP states "it is too loud" to use cough improved dyspnea improving albeit slowly during sleep his o2 sats drop into the 70s/80s and staff have to raise the FiO2 during the day we can wean down to 5 L NC he was completely awake/alert today during the visit, sitting in the chair comfortably daughter/son in law/grand-daughter at bedside Review of Systems Review of Systems: gen - eating well cv - no chest pain neuro - no numbness or motor weakness of limbs pulm - minimal sputum, if any GI - no abd pain or N/V Physical Exam Physical Exam: gen - awake, alert, oriented; sitting in chair comfortably; best he has looked all admission neck - no JVD mouth - MMM heart - RRR, s1 s2, no murmur lungs - b/l basilar crackles - fine, no wheezes b/l, no increased work of breathing, airation fair abd - soft NT ND BS+ ext - no edema, pulses 2+ b/l psych - a/o x 3; restricted affect Results & Data Results & Data Vital Signs (Past 12 Hours) Vital Signs Temp Pulse Pulse Resp BP Pulse Ox O2 Del Method 07/28/23 15:11 77 18 94 Nasal Cannula 07/28/23 15:00 80 07/28/23 14:23 36.4 C L 96 H 22 144/70 H 92 Nasal Cannula 07/28/23 10:34 36.5 C 85 24 142/72 H 93 Nasal Cannula 07/28/23 08:00 High Flow Nasal Cannula 07/28/23 07:37 36.6 C 77 24 160/72 H 88 L Nasal Cannula 07/28/23 07:04 80 24 84 L Nasal Cannula O2 Flow Rate 07/28/23 15:11 5 07/28/23 15:00 07/28/23 14:23 5.0 07/28/23 10:34 07/28/23 08:00 6 07/28/23 07:37 7.0 07/28/23 07:04 PG Care Time/CCT Total # of Minutes Spent Total Time Spent with Patient: Total time spent is greater than 50% in coordination of care (as documented) at patient's floor/unit and/or counseling patient: Coding Level of Care Code 15572 SUB INP/OBS CARE 2/35MIN Diagnoses Severe sepsis A41.9; R65.20 Acute respiratory failure with hypoxia and hypercapnia J96.01; J96.02 Pneumonia J18.9 Tobacco abuse Z72.0 Acute exacerbation of chronic obstructive pulmonary disease J44.1 Hypomagnesemia E83.42 DM2 (diabetes mellitus, type 2) E11.9 Hypertension I10 Anxiety F41.9 MCI (mild cognitive impairment) with memory loss G31.84 CAD (coronary artery disease) I25.10 Urinary incontinence R32 Acute metabolic encephalopathy G93.41 Multiple falls R29.6 DVT prophylaxis Z29.9 S/P coil embolization of cerebral aneurysm Z98.890 Depression F32.A
[2023-07-29 05:37] LABS: Base Excess VBG 18.3 mEq/L; HCO3 VBG 48 mmol/L; Oxygen Saturation VBG 74.3 %; PCO2 VBG 81 mmHg (38-50); PO2 VBG 50 mmHg; pH VBG 7.38 (7.36-7.41)
[2023-07-29 05:45] LABS: Hematocrit (blood only) 46.8 % (42.0-52.0); Hemoglobin 14.5 g/dl (14.0-18.0); Mean Corpuscular Hemoglobin 28.8 pg (25.0-34.0); Mean Platelet Volume 9.6 fL (9.4-12.4); Platelet Count 244 K/uL (130-400); RDW Coefficient of Variation 14.2 % (11.5-14.5); RDW Standard Deviation 48.7 fL (36.4-46.3); Red Blood Count 5.03 M/uL (4.70-6.10); White Blood Count 14.27 K/ul (4.8-10.8)
[2023-07-29 06:08] LABS: BUN Creatinine Ratio 24.1 (10-20); Calcium 8.9 mg/dl (8.6-10.3); Creatinine Clr Calc Pharmacy 109.8 ml/min; Est GFR (African American) 106.2 ml/min; Est GFR (Non-African American) 91.6 ml/min; Potassium 4.1 mmol/L (3.5-5.1)
[2023-07-29 06:57] LABS: Base Excess ABG 15.5 mEq/L (-9-1.8); HCO3 ABG 44 mmol/L (19-24); Oxygen Saturation ABG 94.2 % (90-95); PCO2 ABG 69 mmHg (35-46); PO2 ABG 71 mmHg (80-95); pH ABG 7.41 (7.35-7.45)
[2023-07-29 07:00] LABS: Allen Test Pos (Pos)
--- NOTE | 2023-07-29 07:32 | Pulmonology Progress Note ---
Date of Service July 29, 2023 Assessment & Plan (1) Acute respiratory failure with hypoxia and hypercapnia: (2) Acute on chronic respiratory acidosis: (3) Tobacco abuse: (4) SOB (shortness of breath): (5) COPD with emphysema: Plan CT chest 07/23/2023 personally reviewed: Minimal centrilobular emphysema appreciated bilaterally Tree-in-bud opacities appreciated in upper and lower lobes more pronounced in the lower lobes Motion degraded study Minimal mediastinal lymphadenopathy ABG 07/23/2023: 7.17/84/105 on 50%--> 07/25/2023 AB.32 /69 /72 on 40% -- Acute hypercapnic hypoxic respiratory failure Likely secondary to COPD exacerbation with multilobar pneumonia Denies any diarrhea prior to coming to the hospital Procalcitonin 0.42, nasal MRSA negative Respiratory bio fire negative for everything --COPD with emphysema Not on any standing inhalers at home Would recommend Trelegy 100 or BrezTri on discharge Due to chronic respiratory failure consequent to COPD, patient now requires a noninvasive home ventilator. Bilevel therapy with and without a rate would be ineffective as patient requires a volume targeted mode. Ventilation is required to decrease work of breathing and improve pulmonary status. Interruption of ventilator support would lead to decline of health status. COPD causing recurrent hypercapnic respiratory failure with a PaCo2 of 84 --> 75 with BiPAP. Patient would benefit greatly from noninvasive ventilation which would improve lung function and potentially reduce worsening of symptoms. A BiPAP would be ineffective as patient requires a volume targeted mode. Interruption of ventilator support would lead to a decline of health status. NIMV settings should be AVAPS-AE; Breath rate: auto; Inspiratory time:auto; Sigh: off; Tidal Volume: 350-450, PS min: 4-10 PS max: 12-20; EPAP min: 6-10; EPAP max: 10-16; AVAPS rate: 14 during sleep and as needed --Active smoker > [id number] smoking history Positive quitting explained to the patient in depth --Probable FAY/OHS Recommend outpatient polysomnography -- For diffuse tree-in-bud opacities would recommend repeat CT chest to be done in 3 months Plan: Continue with Brovana and budesonide to the regimen along with hypertonic saline and flutter valve, recommend Trelegy 100 or BrezTri on discharge Continue with prednisone 40 mg for 2 days followed by 20 mg for 4 days and then stop Keep O2 saturation between 88-92%, do not over-oxygenate the patient Patient will likely need oxygen even at home. Case management is already working on getting the patient AVAPS machine BiPAP nightly and as needed shortness of breath Case was discussed with primary team No further recommendation from pulmonary perspective, will sign off Please call directly with any questions Please note the above document was generated using voice recognition software. It may contain grammatical, syntax or spelling errors.Any formal questions or concerns about the content, text or information contained within the body of this dictation should be directly addressed to the provider for clarification. Admission and Anticipated Discharge Date Admission Date: July 23, 2023 Subjective Patient seen and examined at bedside. No acute distress, no adverse events overnight. Did use his BiPAP overnight Says that he is feeling better. Wants to go home Was saturating 90-92% on 5 L nasal cannula at rest. Coughing up and bringing up clear phlegm. No hemoptysis Fair appetite Review of Systems 2 Review of Systems: All systems reviewed & are unremarkable except as noted in Subjective Physical Exam 2 Physical Exam: Constitutional: No acute distress HEENT: EOMI, PERRLA Respiratory system: Decreased air entry bilaterally, no rhonchi, no wheeze, positive crackles bilateral lower lobes CVS: S1-S2 positive, no murmurs or gallops Abdomen: Soft, nontender, nondistended, positive bowel sounds x4, obese Extremities: +2 pulses bilaterally radialis/ dorsalis pedis, no cyanosis, no edema Neuro: Awake alert oriented x3 Psych: Normal mood and affect G/U: No [place] Skin: no rashes, warm and dry Lymphatic: no cervical or axillary lymphadenopathy Results & Data Results & Data Vital Signs (Past 12 Hours) Vital Signs Temp Pulse Pulse Resp BP Pulse Ox O2 Del Method 07/29/23 07:25 68 18 90 Nasal Cannula 07/29/23 03:50 36.5 C 66 20 138/63 97 BiPAP 07/29/23 02:47 72 13 07/29/23 00:00 36.6 C 69 17 138/64 95 BiPAP 07/28/23 23:29 74 19 98 07/28/23 22:03 84 07/28/23 21:45 High Flow Nasal Cannula 07/28/23 20:49 36.4 C L 87 20 164/73 H 92 High Flow Nasal Cannula 07/28/23 19:31 87 19 95 Nasal Cannula O2 Flow Rate FiO2 07/29/23 07:25 5 07/29/23 03:50 07/29/23 02:47 40 07/29/23 00:00 07/28/23 23:29 40 07/28/23 22:03 07/28/23 21:45 6 07/28/23 20:49 5 07/28/23 19:31 5 Laboratory Results 07/29/23 05:22 07/29/23 05:22 PG Care Time/CCT Total # of Minutes Spent Total Time Spent with Patient: Total time spent is greater than 50% in coordination of care (as documented) at patient's floor/unit and/or counseling patient: Coding Level of Care Code 74165 SUB INP/OBS CARE 2/35MIN Diagnoses Acute respiratory failure with hypoxia and hypercapnia J96.01; J96.02 Acute on chronic respiratory acidosis J96.02; J96.12 Tobacco abuse Z72.0 SOB (shortness of breath) R06.02 COPD with emphysema J43.9
[2023-07-29] MEDS: DULoxetine HCL 20 MG CAP PO SCH (08:15)
[2023-07-29] MEDS: ESCITALOPRAM OXALATE 10 MG TAB PO SCH (08:15)
[2023-07-29] MEDS ORDERED: ESCITALOPRAM OXALATE 20 MG TAB PO SCH (09:00)
--- NOTE | 2023-07-29 12:03 | Hospitalist Progress Note ---
Date of Service July 29, 2023 Assessment & Plan (1) Severe sepsis: Plan: 2nd to b/l pneumonia resolved blood cx's negative (2) Acute respiratory failure with hypoxia and hypercapnia: Plan: 2nd to b/l pneumonia + probable COPD exacerbation improving O2 requirements slowly trending down required BIPAP for 12+ hours following admission now down to NC O2 during the day, BIPAP at HS encouraged cont bronchodilators, abx, and steroids appreciate pulmonary consultation & recs keep sats 90-92% Dr Hartman ordered Trilogy for him for home use cont to wean O2 as tolerated he knows we have to wean him down to at least 2-3 L of NC O2 to get him home safely cont steroid wean finishing abx (3) Pneumonia: Plan: b/l improving clinically s/p 5 days of zithromax and rocephin today is day #2 of 2 of levaquin stop all abx biofire resp panel noted to be negative legionella urine ag returned negative supportive care with nebs, O2, BIPAP, etc (4) Tobacco abuse: Plan: current smoker, 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 (5) Acute exacerbation of chronic obstructive pulmonary disease: Plan: patient does not have a formal dx of COPD but likely has such based on e mphysematous changes on imaging, long-standing tobacco history, etc treat for "COPD exacerbation" with steroids, nebs, etc plan prednisone 40mg daily x 3 days (tomorrow is day 3/3), then cont to wean appreciate pulmonary consult desperately needs to quit smoking - he is "thinking about it" will need neb machine, Trilogy machine, etc for home will give dose of lasix today to keep net negative fluid balance (6) Hypomagnesemia: Plan: repleted resolved (7) DM2 (diabetes mellitus, type 2): Plan: hba1c 7.3% holding PO meds lantus-novolog appreciate pharmacy glycemic consult & recs (8) Hypertension: Plan: Continue metoprolol (9) Anxiety: Plan: plan is to wean off lexapro and start cymbalta (10) MCI (mild cognitive impairment) with memory loss: Plan: with superimposed metabolic encephalopathy - resolved with supportive care & seroquel CT head neg for acute findings (11) CAD (coronary artery disease): Plan: h/o CABG - [facility] - 02/2018 4-vessel CABG --> MATT to LAD, VG to OM2, VG to PDA-PRL cont metoprolol cont asa cont LUIS cont statin mild troponin elevation likely due to myocardial demand ischemia rather than ACS (12) Urinary incontinence: Plan: improved was likely due to altered MS in the face of his sepsis, resp failure, CO2 retention, etc (13) Acute metabolic encephalopathy: Plan: 2nd to elevated CO2, low O2, severe sepsis, pneumonia, etc resolved continue scheduled seroquel HS but try to wean off before discharge AVOID BENZOS/sedatives in light of hypercapnia (14) Multiple falls: Plan: unwitnessed last one was this past weekend - details uncertain head CT and c-spine CT w/o fracture, ICH, etc reported numbness in distal LLE earlier this week but resolved CPK noted to be wnl (15) DVT prophylaxis: Plan: lovenox once daily (16) S/P coil embolization of cerebral aneurysm: Plan: history of right ICA supraclinoid aneurysm s/p coil embolization 05/2015 at [facility] CT head neg for acute findings (17) Depression: Plan: is on remeron 45mg HS and lexapro 20mg daily appreciate psych consult plan - wean off lexapro - cut dose back by 5mg every 3 days start cymbalta in [place] - start 20mg daliy cont remeron 45mg HS try to wean off seroquel next few days Plan daughter updated at bedside again today cont PT/OT progressing home next 48 hours ? will need 2-step Admission and Anticipated Discharge Date Admission Date: July 23, 2023 Subjective had a good night wore BIPAP much of the night cough improving dyspnea improved eating very well feels much better family at bedside no new complaints Review of Systems Review of Systems: cv - no cp, no orthopnea pulm - all pulm symptoms improved GI - no N/V, no diarrhea Physical Exam Physical Exam: gen - awake, alert, oriented; looks well today; sitting at side of the bed neck - no JVD mouth - MMM heart - RRR, s1 s2, no murmur lungs - b/l basilar crackles - fine, no wheezes b/l, no increased work of breathing, airation a little better today abd - soft NT ND BS+ ext - no edema, pulses 2+ b/l psych - a/o x 3 Results & Data Results & Data Vital Signs (Past 12 Hours) Vital Signs Temp Pulse Pulse Resp BP Pulse Ox O2 Del Method 07/29/23 11:39 36.4 C L 84 16 89 L Nasal Cannula 07/29/23 07:40 36.3 C L 68 18 154/62 H 90 Nasal Cannula 07/29/23 07:25 68 18 90 Nasal Cannula 07/29/23 03:50 36.5 C 66 20 138/63 97 BiPAP 07/29/23 02:47 72 13 O2 Flow Rate FiO2 07/29/23 11:39 5 07/29/23 07:40 5.0 07/29/23 07:25 5 07/29/23 03:50 07/29/23 02:47 40 Laboratory Results Laboratory Results - last 24 hr 07/28/23 07/28/23 07/29/23 16:30 21:24 05:22 WBC 14.27 H RBC 5.03 Hgb 14.5 Hct 46.8 MCV 93.0 MCH 28.8 MCHC 31.0 L RDW Std Deviation 48.7 H RDW Coeff of Christy 14.2 Plt Count 244 MPV 9.6 ABG pH ABG pCO2 ABG pO2 ABG HCO3 ABG O2 Saturation ABG Base Excess Ryan Test VBG pH 7.38 VBG pCO2 81 H VBG pO2 50 VBG HCO3 48 VBG O2 Saturation 74.3 VBG Base Excess 18.3 Oxygen Given Sodium 140 Potassium 4.1 Chloride 98 Carbon Dioxide 41 H* Anion Gap 1 L BUN 19 Creatinine 0.79 Est Cr Clr Drug Dosing 109.8 Est GFR ( Amer) 106.2 Est GFR (Non-Af Amer) 91.6 BUN/Creatinine Ratio 24.1 H Glucose 130 H POC Glucose 130 H 206 H Calcium 8.9 07/29/23 07/29/23 07/29/23 06:51 07:45 11:35 WBC RBC Hgb Hct MCV MCH MCHC RDW Std Deviation RDW Coeff of Christy Plt Count MPV ABG pH 7.41 ABG pCO2 69 H ABG pO2 71 L ABG HCO3 44 H ABG O2 Saturation 94.2 ABG Base Excess 15.5 H Ryan Test Pos VBG pH VBG pCO2 VBG pO2 VBG HCO3 VBG O2 Saturation VBG Base Excess Oxygen Given 5L Sodium Potassium Chloride Carbon Dioxide Anion Gap BUN Creatinine Est Cr Clr Drug Dosing Est GFR ( Amer) Est GFR (Non-Af Amer) BUN/Creatinine Ratio Glucose POC Glucose 113 H 208 H Calcium PG Care Time/CCT Total # of Minutes Spent Total Time Spent with Patient: Total time spent is greater than 50% in coordination of care (as documented) at patient's floor/unit and/or counseling patient: Coding Level of Care Code 39720 SUB INP/OBS CARE 2/35MIN Diagnoses Severe sepsis A41.9; R65.20 Acute respiratory failure with hypoxia and hypercapnia J96.01; J96.02 Pneumonia J18.9 Tobacco abuse Z72.0 Acute exacerbation of chronic obstructive pulmonary disease J44.1 Hypomagnesemia E83.42 DM2 (diabetes mellitus, type 2) E11.9 Hypertension I10 Anxiety F41.9 MCI (mild cognitive impairment) with memory loss G31.84 CAD (coronary artery disease) I25.10 Urinary incontinence R32 Acute metabolic encephalopathy G93.41 Multiple falls R29.6 DVT prophylaxis Z29.9 S/P coil embolization of cerebral aneurysm Z98.890 Depression F32.A
--- NOTE | 2023-07-29 12:46 | Communication Note ---
Date of Service: July 29, 2023 I stopped by to check in with the patient this morning and let them know some of the changes that we made. He understood what we had done and I answered all of his questions. He seemed to be in a pretty good mood. The nurse mentioned that his oxygen was at 5 L. He did have a pretty strong wet cough. He seemed in a good mood and denied any suicidal thoughts. We will continue to follow.
[2023-07-29] MEDS: FUROSEMIDE 20 MG TAB PO ONE (12:58)
[2023-07-30 08:23] LABS: Calcium 8.8 mg/dl (8.6-10.3); Creatinine Clr Calc Pharmacy 117.4 ml/min; Est GFR (African American) 109.1 ml/min; Est GFR (Non-African American) 94.1 ml/min; Potassium 3.8 mmol/L (3.5-5.1)
--- NOTE | 2023-07-30 09:10 | Pharmacy Report ---
Pharmacy Glycemic Short Note 2 - Date of Service July 30, 2023 - Glycemic Short BSG Results (Last 24 hours): 07/29/23 07/29/23 07/29/23 11:35 16:38 16:39 Glucose POC Glucose 208 H 309 H* 291 H 07/29/23 07/30/23 07/30/23 21:34 06:29 07:18 Glucose 113 H POC Glucose 144 H 114 H OUTPATIENT ANTIDIABETIC REGIMEN: * Metformin 500 mg PO BIDM * Empagliflozin 10 mg PO AM * HbA1c: 7.3% (07/24/23) ASSESSMENT: 07/29: * Kamran averaged 53 units of insulin per day over the weekend with each day requiring an increase in total insulin dose. Yesterday, received 15 units basal + 48 units bolus. BSGs were: 220-079-237-144 mg/dL. * Remains on prednisone 40 mg daily which was given today. Dose will be reduced to 30 mg daily starting tomorrow. * Fasting BSG remains controlled at 114 mg/dL this AM. Will continue with current basal dose. Dose may need reduced starting tomorrow given decrease in steroid dose. * Given trend upward in postprandial BSGs at lunch and dinner (likely secondary to steroids), will tighten CF/CR this AM. 07/26: * Mr. Albert received 37 units of insulin yesterday, 20 basal + 17 bolus. BSGs were: 74-950-99-103 mg/dL. * Fasting BSG below goal again today at 89 mg/dL. Will reduce basal further today by approximately another ~20%. * No change to bolus insulin at this time. Remains on 40 mg of IV SoluMedrol daily. Tolerating diet. 07/25: * Kamran received 47 units of insulin yesterday (35 units basal + 12 units bolus). * Patient remains on methylprednisolone 40 mg IV. Reduced from q8h to daily today. * Discrepancy in fasting BSG values, lab draw resulted at 218 and POC resulted at 86 mg/dL. Patient did not receive insulin in between these values. Delayed administration of basal insulin to lunchtime. Current insulin dosing is basal heavy. Will reduce Lantus dose significantly due to this and decrease in steroids. * Loosen novolog parameters 07/24: * Patient received 57 units of insulin yesterday, 35 units basal, fasting BSG 132mg/dl - continue basal. * BSGs also improved after tightening CF/CR to 15/5 yesterday, continue this as patient continues on Nicolette-Medrol 40mg IV Q8H - loosen as steroids are tapered. 07/23: * ANSHU is a 68 year old male who presented to ED evening of 07/22 due to shortness of breath, which was worsened on exertion * Patient w acute respiratory failure w/ hypoxia and hypercapnia, no prior hx of COPD * 10 mg IV dexamethasone x 1 given in ED, followed by methylprednisolone 60 mg IV q8h * Patient w/ reasonably well-controlled T2DM as an outpatient w/ oral agents only * Hyperglycemic on presentation > 200 mg/dL * Will be aggressive w/ initial insulin regimen due to high-dose steroids PLAN FOR INPATIENT GLYCEMIC CONTROL: * Hold outpatient oral diabetes medications * Basal insulin * Lantus 15 units SC daily * Bolus insulin * NovoLog per scale ACHS or Q6hrs while NPO * Goal Range: Low 110 mg/dL - High 140 mg/dL * Correction Factor: 15 mg/dL/unit * Nutritional / Prandial insulin per carb ratio of 1 unit per 5 grams CHO consumed
--- NOTE | 2023-07-30 11:33 | Communication Note ---
Date of Service: July 30, 2023 I came by to meet with the patient this morning. He was sitting in his chair and I noticed that his oxygen was at 2.5 L with a nasal cannula. Patient was in a good mood and we sat down and chatted for a little bit. He says he is feeling well and was able to walk around on the unit a couple of times yesterday and a couple of times today. He is eager to get out of the hospital as soon as he can. We reviewed the medication changes to be made for his anxiety and depression and he wanted to talk to with his daughter about individual therapy. I explained to the patient what it meant to have therapy, he seemed to be in support of it. I do not plan to make any other adjustments right now. He seems to be doing well and is thinking about the future. He denied any suicidal thoughts. We will continue to check in on him occasionally, but I do not think there is anything new to do. When he is ready for discharge, if he is interested in individual therapy, we can set up an appointment for him.
--- NOTE | 2023-07-30 16:05 | Discharge Summary ---
Date of Service July 31, 2023 Admission HPI Per Admitting Provider Kamran is a 68-year-old male with PMH of HTN, CAD, CABGx4, anxiety, depression, T2DM, and vertigo. He presented for SOB/dyspnea and wheezing that has been worsening since Wednesday 07/19. Patient reports that he is having shortness of breath both at rest and with exertion. It is worse when he lies on his back. No prior experiences like this one. Patient is a current everyday tobacco cigarette smoker; 2 PPD; he also endorses smoking "wagon weed"; no cigars. He denies alcohol use. No supplemental oxygen use at home. Patient has not been taking any additional measures for his difficulty with breathing such as inh amber. He reports that he missed his regular medications yesterday, but has been taking them consistently. He does not currently take Lasix, and denies PMH of CHF. Of note, the patient did sustain a ground-level fall that was unwitnessed over the weekend. Patient denies head strike, LOC; he is unsure what caused him to fall, but reports that his legs gave out on him. No dizziness prior to fall. No tripping. Patient's daughter is at the bedside and also reports that he had 1 episode of urinary incontinence, which was new for him. Last BM was 1 week ago. Patient is tachycardic at 123 bpm, tachypneic at 34 RPM; SpO2 97% on BiPAP /. ED course: Rocephin 2000 mg IV Decadron 10 mg IV Albuterol 12 mL Magnesium sulfate 1 g IV NSS 500 mL IV ROS: Patient endorses SOB at rest, intermittent left lower leg numbness, urinary incontinence x 1 (which is new according to daughter) Patient denies fever, chills, night sweats, body aches, dizziness/lightheadedness at rest or with exertion, headache, chest pain, left arm/shoulder/jaw pain or pressure, pleuritic CP, cough, hemoptysis, abdominal pain, N/V/D, burning with urination, blood in the urine or stool, or pain/swelling in the lower extremities bilaterally. Principal Diagnosis Sepsis and Acute respiratory failure with hypoxia and hypercapnia due to pneumonia and acute exacerbation of COPD Discharge Exam gen - awake, alert, oriented; looks well today; sitting at side of the bed neck - no JVD mouth - MMM heart - RRR, s1 s2, no murmur lungs - b/l basilar crackles - fine, no wheezes b/l, no increased work of breathing, airation a little better today abd - soft NT ND BS+ ext - no edema, pulses 2+ b/l psych - a/o x 3 Addendum exam 07/30: sitting on EOB awake and alert, wearing O2 pnc heart reg no mrg resp comfortable, slightly coarse on right and diminished throughout without wheezing abd sntnd +BT LE wwp without edema neuro AOX3 [id number] Discharge Data Allergies Allergy/AdvReac Type Severity Reaction Status Date / Time sulfamethoxazole AdvReac Intermediate Dizziness Verified 07/23/23 20:04 trimethoprim AdvReac Intermediate Dizziness Verified 07/23/23 20:04 Consultations 07/23/23 20:36 ED Decision to Admit Stat 07/24/23 01:42 Consult Pulmonology Routine 07/27/23 16:24 Consult Psychiatry Routine Ordered Studies 07/23/23 20:34 CT angio chest PE protocol Stat 07/24/23 19:32 CT cervical spine wo con Routine Head CT [CT head/brain wo con] Routine Chest X-Ray 07/23/23 19:05 SINGLE VIEW CHEST CLINICAL HISTORY: Sepsis. FINDINGS: 2 AP, portable, upright chest radiographs are compared to study dated 04/08/2012. The patient is status post midline sternotomy. The heart is enlarged noting atherosclerotic calcification of the thoracic aorta. There is pulmonary vascular congestion. There is bibasilar scarring/atelectasis. No airspace consolidation or large pleural effusion is identified. No pneumothorax is seen. The skeletal structures are osteopenic. The bony thorax is grossly intact. Arthritic change is noted in the left shoulder. IMPRESSION: Cardiomegaly with pulmonary vascular congestion. ACT 112: Negative or not required by law. Electronically signed by: Oren Perez M.D. 07/23/2023 7:26 PM Chest CTA 07/23/23 20:34 Exam(s): CTA CHEST IV Amt: 78 ml opti 320 EXAM: CT Angiography Chest With Intravenous Contrast CLINICAL HISTORY: Reason for exam: PE. TECHNIQUE: Axial computed tomographic angiography images of the chest with intravenous contrast. CTDI is 40.94 mGy and DLP is 976.16 mGy-cm. Automated exposure control was utilized for the study. A dose lowering technique was utilized adhering to the principles of ALARA. MIP reconstructed images were created and reviewed. COMPARISON: None. FINDINGS: Limitations: Exam is limited due to motion/breathing artifact. Pulmonary arteries: Unremarkable. Normal enhancement of the pulmonary arteries with no filling defect to suggest pulmonary embolus. Aorta: Atherosclerotic disease of aorta with no dissection. Mild aneurysmal dilatation of the distal thoracic aorta measuring 3.1 x 3.1 cm. Lungs: There is diffuse interstitial prominence with scattered minimal groundglass pattern suggestive of interstitial lung disease versus diffuse pneumonitis. Findings are atypical for interstitial pulmonary edema although not excluded. There are small nodularities within the right lower lobe, largest measuring 9.3 mm. There is a small cavitary lesion in the left lung apex (image 113, series 3 measuring 7 mm). These could represent nonspecific inflammatory changes versus neoplasm. Minimal atelectasis of the lingular lobe. No mass. Pleural space: Unremarkable. No significant effusion. No pneumothorax. Heart: Unremarkable. No cardiomegaly. No significant pericardial effusion. No evidence of RV dysfunction. Normal cardiac size with coronary artery calcifications. Bones/joints: No acute fracture. No dislocation. Soft tissues: Unremarkable. Lymph nodes: Unremarkable. No enlarged lymph nodes. Liver: Abdominal structures revealed diffuse fatty liver otherwise unremarkable. Other findings: Multilevel degenerative disease of the spine. IMPRESSION: 1. No pulmonary embolus or aortic dissection. 2. Diffuse interstitial pneumonitis versus chronic interstitial lung disease. 3. Small right lower lobe and left apical nodularities which may indicate inflammatory process versus neoplasm. Recommend short interval CT examination at 3 months interval to evaluate resolution. Electronically signed by: Namrata Olmstead MD 07/23/23 22:[address] 07/24/23 19:32 CT SCAN OF THE CERVICAL SPINE CLINICAL HISTORY: Unwitnessed falls. COMPARISON STUDY: Cervical spine CT dated 01/30/2015. TECHNIQUE: CT scan of the cervical spine is performed from the skull base to the upper thoracic spine. Images are reviewed in the axial, sagittal, and coronal planes. IV contrast was not administered for this examination. A dose lowering technique was utilized adhering to the principles of ALARA. CT DOSE: 1437.57 mGy.cm FINDINGS: Skeletal structures: The skeletal structures are osteopenia. There is no evidence of fracture or subluxation involving the cervical spine. Vertebral body height is maintained. There is minimal anterolisthesis at C7-T1. Alignment is otherwise preserved. There is straightening of the cervical lordosis. Anterior osteophytes are seen throughout. The odontoid process and lateral masses are intact. The atlantoaxial articulation is preserved noting productive degenerative change. The spinous processes appear intact. There is moderate to advanced multilevel cervical spondylosis. Uncovertebral and facet arthropathy contribute to neural foraminal stenosis at most levels. Intervertebral discs: There is moderate to severe disc space narrowing at C4-C5, C5-C6, C6-C7, and C7-T1. Central canal: Posterior disc osteophyte complexes are seen at all cervical levels between C3-C4 and C6-C7. This likely contributes to multilevel acquired compromise of the central canal. Soft tissues: The prevertebral and paraspinous soft tissues are within normal limits. There is atherosclerotic calcification of the carotid bulbs. Calvarium: The visualized calvarium at the skull base appears intact. Brain parenchyma: Partially visualized brain parenchyma at the skull base is within normal limits. Sinuses and mastoids: There is mild mucosal thickening in the sphenoid sinuses. The mastoid air cells are well pneumatized. Cerumen is noted in the external auditory canals. Lung apices: Clear as visualized. IMPRESSION: 1. There is no evidence of cervical spine fracture or subluxation. 2. Osteopenia and spondylotic change as above. ACT 112: Negative or not required by law. Electronically signed by: Oren Perez M.D. 07/25/2023 2:[address] 07/24/23 19:32 CT head/brain wo con CLINICAL HISTORY: unwitnessed falls at home, eval ICH etc. Technique: Contiguous axial CT images of the head were acquired from the base of the skull to the vertex without intravenous contrast administration. Images were viewed in brain, subdural and bone windows. Automated dose lowering techniques and/or adjustment according to patient size were utilized for this exam. Comparison: Comparison is made to CT head 06/23/2015 Findings: The ventricles, basal cisterns, and cerebral sulci are normal. There is no acute intracranial hemorrhage or evidence of acute territorial infarction. Neither mass effect, shift of the midline structures, nor abnormal extra-axial fluid collections are shown. Old hypodensity in the right frontal lobe. Aneurysm coil in the right skull base is unchanged. Imaged portions of the paranasal sinuses and mastoid air cells are clear. The orbits appear normal. There are no acute fractures of the calvaria or scalp swelling. Impression: No acute intracranial hemorrhage, skull fractures, or scalp swelling. ACT 112: Negative or not required by law. Electronically signed by: Rah Brumfield M.D. 07/25/2023 12:30 PM Hospital Course (1) Severe sepsis: 2nd to b/l pneumonia resolved blood cx's negative (2) Acute respiratory failure with hypoxia and hypercapnia: 2nd to b/l pneumonia + probable COPD exacerbation improving O2 requirements slowly trending down required BIPAP for 12+ hours following admission now down to NC O2 during the day, BIPAP at HS encouraged cont bronchodilators, abx, and steroids appreciate pulmonary consultation & recs keep sats 90-92% Dr Hartman ordered Trilogy for him for home use cont to wean O2 as tolerated home O2 has been set up cont steroid wean finished abx Chest CT recommended in 3 mo to follow up resolution of infectious vs inflammatory pulmonary nodules: "Small right lower lobe and left apical nodularities which may indicate inflammatory process versus neoplasm. Recommend short interval CT examination at 3 months interval to evaluate resolution." -discussed with patient and added to DC instructions, sent message to pulm (3) Pneumonia: b/l improving clinically s/p 5 days of zithromax and rocephin followed by 2 days levofloxacin no longer on abx biofire resp panel noted to be negative legionella urine ag returned negative supportive care with nebs, O2, BIPAP, etc (4) Tobacco abuse: current smoker, 2 PPD counseled to quit nicoderm patch 21mg/day (5) Acute exacerbation of chronic obstructive pulmonary disease: patient does not have a formal dx of COPD but likely has such based on emphysematous changes on imaging, long-standing tobacco history, etc treat for "COPD exacerbation" with steroids, nebs, etc continue tapering prednisone appreciate pulmonary consult desperately needs to quit smoking - he is "thinking about it" will need neb machine, Trilogy machine, etc for home - arranged (6) Hypomagnesemia: repleted resolved (7) DM2 (diabetes mellitus, type 2): hba1c 7.3% holding PO meds lantus-novolog appreciate pharmacy glycemic consult & recs (8) Hypertension: Continue metoprolol (9) Anxiety: plan is to wean off lexapro and start cymbalta (10) MCI (mild cognitive impairment) with memory loss: with superimposed metabolic encephalopathy - resolved with supportive care & seroquel CT head neg for acute findings (11) CAD (coronary artery disease): h/o CABG - [facility] - 02/2018 4-vessel CABG --> MATT to LAD, VG to OM2, VG to PDA-PRL cont metoprolol cont asa cont LUIS cont statin mild troponin elevation likely due to myocardial demand ischemia rather than ACS (12) Urinary incontinence: improved was likely due to altered MS in the face of his sepsis, resp failure, CO2 retention, etc (13) Acute metabolic encephalopathy: 2nd to elevated CO2, low O2, severe sepsis, pneumonia, etc resolved AVOID BENZOS/sedatives in light of hypercapnia (14) Multiple falls: unwitnessed last one was this past weekend - details uncertain head CT and c-spine CT w/o fracture, ICH, etc reported numbness in distal LLE earlier this week but resolved CPK noted to be wnl (15) S/P coil embolization of cerebral aneurysm: history of right ICA supraclinoid aneurysm s/p coil embolization 05/2015 at [facility] CT head neg for acute findings (16) Depression: is on remeron 45mg HS and lexapro 20mg daily appreciate psych consult plan - wean off lexapro - cut dose back by 5mg every 3 days start cymbalta in yulia - start 20mg daliy cont remeron 45mg HS try to wean off seroquel next few days Plan discharge home today with home health Home Health Attestation I certify that this patient is under my care and that I, or a physicians orthodontist assistant working with me, had a face to-face encounter that meets the home health [id number] encounter requirements with this patient. The encounter with the patient was in whole, or in part, for the following medical condition, which is the primary reason for home health care (list medical condition): COPD, new Trilogy machine I certify that, based on my findings, the following services are medically necessary home health services: My clinical findings support the need for the above services because: Home Safety Assessment Medication Compliance and Monitoring Effective of New Medications Skilled Nsg Assessment Teach on Disease Management and Interventions Further, I certify that my clinical findings support that this patient is homebound (i.e. absences from home require considerable and taxing effort and are for medical reasons or hindu services or infrequently or of short duration when for other reasons) because: Transportation Assistance/Unable to Leave Home Unassisted Certification for Home Health Services: Based on the above findings, I certify that this patient is confined to the home and needs intermittent fpc care, physical therapy and/or speech therapy or continues to need occupational therapy. The patient is under my care, and I have initiated the establishment of the plan of care. This patient will be followed by a physician who will periodically review the plan of care. Total Time Total Time Spent Total Time Spent (In Minutes): 35 minutes on coordinating care for discharge - reviewing chart, vitals, examining and counseling patient, discussions with bedside RN and care coord, documentation, communication with folllow-up providers. Discharge Plan Discharge Items Patient Disposition: Home - Home Health Services Reason For Visit: Shortness of breath Discharge Diagnosis: 1. bilateral pneumonia 2. suspected COPD with exacerbation 3. confusion - due to elevated carbon dioxide levels, pneumonia, and low oxygen - resolved 4. tobacco use 5. history of coronary artery disease 6. depression 7. type 2 diabetes 8. history of cerebral aneurysm with coil procedure 9. sepsis due to pneumonia - resolved 10. need for home oxygen Activity: As commented below Activity Comment: gradually increase activities over the next week Non-emergency contact: Primary Care Provider and Rounder Hand Call non-emergency contact if: you have any medication questions, your symptoms worsen and you have a fever Follow-up/Referrals: Kelly Lilly MD [Primary Care Provider] - 08/01/23 1:30 pm Stuart Hartman MD, FCCP [Physician] - (Office will call with an appointment) PCPEMILIANO [Physician] - Diet: Carb Consistent or DM2 Addtl Attending Provider Instructions: Mr Roosevelt, You were hospitalized due to severe shortness of breath. Your breathing difficulty was due to pneumonia as well as suspected COPD (emphysema). You were treated with steroids, antibiotics, breathing treatments, oxygen, and other supportive care. You completed your entire 7-day course of IV/oral antibiotics while here. With time your symptoms improved and we were able to wean down your oxygen. [facility] saw you in consult and gave various recommendations for your care. They have advised use of a machine called "Trilogy" upon return home. This machine should be worn anytime you sleep. It will keep your carbon dioxide levels from rising too high. The Trilogy machine is being delivered to your home. Unfortunately we were not able to wean off your oxygen. At least for the near-future you will need to wear oxygen at all times. The data conversion operator can determine as time goes on if you need to continue oxygen indefinitely. Recommendations - 1. prednisone - this is for your breathing; take with food. It is a 5-day course. Start this tomorrow, 07/31/23. 2. start Breo inhaler - 1 puff once daily every day; rinse your mouth with water after each use. This is for emphysema/COPD. 3. albuterol-ipratropium nebulizer treatments - 1 treatment every 6 hours as needed for cough/wheeze/shortness of breath. 4. jppi-wee-swnxufi mucinex up to 1200mg twice daily, as needed, for cough/congestion. 5. nicotine patch - place ONE 21mg patch on your arm and change each day. If you relapse and go back to smoking please stop the patch. 6. please talk with your doctors about ways in which to quit smoking. 7. DO NOT SMOKE IN YOUR HOME WITH OXYGEN. DO NOT LET VISITORS TO YOUR HOME SMOKE INSIDE YOUR HOUSE. THIS CAN CAUSE A HOUSE FIRE. 8. depression medicines - * START duloxetine 30mg once daily on 07/31/23 * Escitalopram - we are going to "wean" you off this medicine; you were taking 20mg tablets at home prior to this hospitalization. Please throw the 20mg tablets away. To wean you off we have to reduce the dose of this medicine slowly. Please do the following - I have prescribed 5mg tablets of this medicine to complete the wean - * 3 tablets on day 1 (07/31/23) * 2 tablets on days 2, 3, and 4 (08/01/23 - 08/03/23) * 1 tablet on days 5, 6, and 7 (08/04/23 - 08/06/23) * Once you have "weaned" the escitalopram you will be completely off his medicine 9. Know that the prednisone will raise your blood sugars over the next few days. 10. Oxygen amounts - * 3 liters of oxygen with rest/sleep * 4 liters of oxygen with activity/ambulation 11. Please use the Trilogy machine at night-time and with naps if at all possible. 12. Plan to purchase a pulse oximeter device. This is a small device that goes on your finger and measures your blood oxygen levels. You can check daily and as needed. If your oxygen levels are consistently greater than 88% these are acceptable readings. If your readings are consistently LESS THAN 88% please seek medical attention. Follow-up - see separate section The radiologist advised you have a repeat chest CT in three months to make sure some lung abnormalities resolve (likely due to the pneumonia) and make sure there are no underlying lesions. Dr. Hartman or your PCP can order this test. Return to [facility] if - * your oximeter readings on your finger are less than 88% consistently * you have worsening shortness of breath * you have chest pains * you develop severe diarrhea * any other concerns It was our pleasure to care for you! -Dr Coker Pending Studies at Discharge: No Stand-Alone Forms: My [facility], Smoking Cessation Medications and DC Order Prescriptions: New (DME) Oxygen Home E0424 Liters Per Minute See Rx Instructions .ROUTE .MEDSUPPLY Qty: 1 0RF Rx Instructions: 3 L NC O2 at rest/sleep. 4 L with ambulation. (DME) nebulizer and compressor Device See Rx Instructions .Route Qty: 1 0RF Rx Instructions: As directed ipratropium-albuterol 0.5 mg-3 mg(2.5 mg base)/3 mL Solution For Nebulization 3 ml inhalation Q6H PRN (Reason: cough/wheeze/shortness of breath) Qty: 90 0RF nicotine [Nicoderm CQ] 21 mg/24 hr Patch 24 Hour 21 mg transdermal QAM Qty: 30 0RF prednisone 10 mg Tablet 10 mg PO DIRECTED Qty: 12 0RF Rx Instructions: start 4/2, take with food. 3 tabs QD x 2 days; 2 tabs QD x 2 days; 1 tab QD x 2 days. duloxetine [Cymbalta] 30 mg capsule,delayed release(DR/EC) 30 mg PO DAILY Qty: 30 1RF fluticasone furoate-vilanterol [Breo Ellipta] 100-25 mcg/dose blister with device 1 inh inhalation DAILY Qty: 60 1RF Rx Instructions: rinse mouth with water after each use. spit the water out, do not swallow. Continued metformin 500 mg tablet 500 mg PO BID Qty: 60 5RF aspirin 81 mg tablet,delayed release (DR/EC) 81 mg PO DAILY Qty: 90 3RF lisinopril 5 mg tablet 5 mg PO QAM Qty: 90 3RF metoprolol succinate 25 mg tablet extended release 24 hr 25 mg PO QAM Qty: 90 3RF atorvastatin 40 mg tablet 40 mg PO QAM Qty: 90 3RF acetaminophen [Tylenol Extra Strength] 500 mg tablet 1,000 mg PO DIRECTED PRN (Reason: Pain) mirtazapine 45 mg tablet 45 mg PO QPM omeprazole 40 mg capsule,delayed release(DR/EC) 40 mg PO QPM Jardiance 10 mg tablet 10 mg PO QAM Changed escitalopram oxalate 5 mg tablet 5 mg PO DIRECTED Qty: 12 0RF Rx Instructions: start 07/30: 3 tabs day 1; 2 tabs days 2,3,4; 1 tab days 5,6,7. Then stop this medicine completely. Held celecoxib [Celebrex] 100 mg Capsule 100 mg PO BID Hold Instructions: please hold until your prednisone course is complete Discharge Orders: Discharge Order (Routine); Ordered 07/31/23 Ordered By: Shelbi Gil/Other Patient Handouts: Quitting Smoking, What Is Emphysema?, Planning to Quit Smoking, The Benefits of Living Smoke Free, Diabetes: Meal Planning, Type 2 Diabetes Admission Data Admit Date/Time: 07/23/23 21:32 Attending Provider: Shelbi Arroyo Admit Provider: Anthony Davis Primary Care Provider: Kelly Lilly Other Providers: Ruth Burrell; Stuart Hartman; [facility]; [place]; Kamran Joyner Jr Other Interventions: Discharge Summary Assessment (RN) Last Done: 07/30/23 16:35 Coding Diagnoses Severe sepsis A41.9; R65.20 Acute respiratory failure with hypoxia and hypercapnia J96.01; J96.02 Pneumonia J18.9 Tobacco abuse Z72.0 Acute exacerbation of chronic obstructive pulmonary disease J44.1 Hypomagnesemia E83.42 DM2 (diabetes mellitus, type 2) E11.9 Hypertension I10 Anxiety F41.9 MCI (mild cognitive impairment) with memory loss G31.84 CAD (coronary artery disease) I25.10 Urinary incontinence R32 Acute metabolic encephalopathy G93.41 Multiple falls R29.6 S/P coil embolization of cerebral aneurysm Z98.890 Depression F32.A
--- NOTE | 2023-07-30 20:07 | Hospitalist Progress Note ---
Date of Service July 30, 2023 Assessment & Plan (1) Severe sepsis: Plan: 2nd to b/l pneumonia resolved blood cx's negative (2) Acute respiratory failure with hypoxia and hypercapnia: Plan: 2nd to b/l pneumonia + probable COPD exacerbation significant improvement O2 requirements at peak - 15 L now 3 L at rest required BIPAP for 12+ hours following admission as well appreciate pulmonary consultation & recs Dr Hartman ordered Trilogy for him for home use - this is being delivered to his home results of 2-step -- 3 L NC O2 at rest/sleep; 4 L with activity (3) Pneumonia: Plan: b/l clinically resolved completed 7 full days of IV/PO abx while here (initially zithromax and rocephin, then PO levaquin) biofire resp panel noted to be negative legionella urine ag returned negative (4) Tobacco abuse: Plan: current smoker, 2 PPD counseled to quit numerous times nicoderm patch 21mg/day - sent to pharmacy for him HE HAS BEEN COUNSELED HE CANNOT SMOKE IN HIS HOME DUE TO THE HOME O2 AND THE RISK OF HOUSE FIRE (5) Acute exacerbation of chronic obstructive pulmonary disease: Plan: patient does not have a formal dx of COPD but likely has such based on emphysematous changes on imaging, long-standing tobacco history, etc treated for "COPD exacerbation" with steroids, nebs, etc plan prednisone 30mg daily x 2 days, 20mg x 2 days, 10mg x 2 days, then stop desperately needs to quit smoking - he is "thinking about it" home O2, neb machine, Trilogy machine all prescribed pulmonary f/u being arranged with Dr Hartman - his office to call patient with appt date/time (6) Hypomagnesemia: Plan: repleted resolved (7) DM2 (diabetes mellitus, type 2): Plan: hba1c 7.3% holding PO meds but resume such at discharge lantus-novolog while here appreciate pharmacy glycemic consult & recs (8) Hypertension: Plan: Continue metoprolol (9) Anxiety: Plan: plan is to wean off lexapro and start cymbalta lexapro wean schedule instructions placed in d/c instructions; 5mg tabs of lexapro prescribed for the wean send home on 30mg of cymbalta cont remeron 45mg HS as is appreciate psych assistance (10) MCI (mild cognitive impairment) with memory loss: Plan: with superimposed metabolic encephalopathy - resolved with supportive care & se roquel CT head neg for acute findings stop seroquel at d/c (11) CAD (coronary artery disease): Plan: h/o CABG - [facility] - 02/2018 4-vessel CABG --> MATT to LAD, VG to OM2, VG to PDA-PRL cont metoprolol cont asa cont LUIS cont statin mild troponin elevation likely due to myocardial demand ischemia rather than ACS (12) Urinary incontinence: Plan: resolved was likely due to altered MS in the face of his sepsis, resp failure, CO2 retention, etc (13) Acute metabolic encephalopathy: Plan: 2nd to elevated CO2, low O2, severe sepsis, pneumonia, etc resolved continue scheduled seroquel HS but stop at discharge AVOID BENZOS/sedatives in light of hypercapnia (14) Multiple falls: Plan: pre-admission unwitnessed head CT and c-spine CT w/o fracture, ICH, etc reported numbness in distal LLE last week resolved CPK noted to be wnl has done well with walking while here (15) DVT prophylaxis: Plan: lovenox once daily (16) S/P coil embolization of cerebral aneurysm: Plan: history of right ICA supraclinoid aneurysm s/p coil embolization 05/2015 at [facility] CT head neg for acute findings (17) Depression: Plan: is on remeron 45mg HS and lexapro 20mg daily appreciate psych consult plan - wean off lexapro - cut dose back by 5mg every 3 days start cymbalta in [place] - started 20mg daily here, send home on the 30mg dose cont remeron 45mg HS stop seroquel at time of discharge Plan daughter updated at bedside today gave her Guerline Christianson's office phone # for any needs post-discharge appreciate SW assistance in securing Trilogy for home, neb machine, NC O2 left another phone message late in the day for daughter anticipate d/c home in am on 07/31/23 Admission and Anticipated Discharge Date Admission Date: July 23, 2023 Subjective pt had great night slept very well used BIPAP most of the night eating 100% meals tele wnl no complaints today "I'm ready to go" intensive preparations were made all day to d/c him home today 2-step completed Trilogy unit being set up neb machine delivered to room etc unfortunately his home O2 unit was NOT approved until very late in the day (after 6pm) recommended to patient that he stay overnight given that his complex discharge didn't come together until very late in the day he was irate, raising his voice and expressing disgust with having to stay 1 more night daughter at bedside during this patient ultimately agreeable to staying overnight he did calm down as the night wore on Review of Systems Review of Systems: gen - feels good, eating well, sleeping well cv - no chest pain pulm - no dyspnea; cough improved gi - no abd pain/nausea/emesis Physical Exam Physical Exam: gen - awake, alert, oriented; looks well today; sitting in chair eating his meal neck - no JVD mouth - MMM heart - RRR, s1 s2, no murmur lungs - decreased BS bases, CTA apices, no wheezes today, occasional crackle abd - soft NT ND BS+ ext - no edema, pulses 2+ b/l psych - a/o x 3 Results & Data Results & Data Vital Signs (Past 12 Hours) Vital Signs Temp Pulse Pulse Pulse Pulse Pulse Pulse 07/30/23 19:17 36.4 C L 82 07/30/23 16:35 36.4 C L 82 07/30/23 15:10 36.4 C L 82 07/30/23 14:35 95 H 97 H 84 83 84 07/30/23 13:57 07/30/23 11:31 36.4 C L 75 07/30/23 08:08 36.4 C L 81 Resp Resp Resp Resp Resp Resp BP 07/30/23 19:17 16 106/71 07/30/23 16:35 18 109/71 07/30/23 15:10 18 109/71 07/30/23 14:35 18 18 15 15 14 07/30/23 13:57 20 07/30/23 11:31 18 138/72 07/30/23 08:08 18 159/71 H Pulse Ox Pulse Ox Pulse Ox Pulse Ox Pulse Ox Pulse Ox O2 Del Method 07/30/23 19:17 97 Nasal Cannula 07/30/23 16:35 90 07/30/23 15:10 90 Nasal Cannula 07/30/23 14:35 88 L 91 88 L 90 85 L 07/30/23 13:57 91 Nasal Cannula 07/30/23 11:31 90 Nasal Cannula 07/30/23 08:08 93 Room Air O2 Flow Rate O2 Flow Rate O2 Flow Rate O2 Flow Rate O2 Flow Rate 07/30/23 19:17 4 07/30/23 16:35 07/30/23 15:10 4 07/30/23 14:35 3 4 2 3 07/30/23 13:57 4 07/30/23 11:31 3 07/30/23 08:08 Laboratory Results Laboratory Results - last 48 hr 07/29/23 07/29/23 07/29/23 07:45 11:35 16:38 Sodium Potassium Chloride Carbon Dioxide Anion Gap BUN Creatinine Est Cr Clr Drug Dosing Est GFR ( Amer) Est GFR (Non-Af Amer) BUN/Creatinine Ratio Glucose POC Glucose 113 H 208 H 309 H* Calcium 07/29/23 07/29/23 07/30/23 16:39 21:34 06:29 Sodium 141 Potassium 3.8 Chloride 97 L Carbon Dioxide 42 H* Anion Gap 2 L BUN 20 Creatinine 0.74 Est Cr Clr Drug Dosing 117.4 Est GFR ( Amer) 109.1 Est GFR (Non-Af Amer) 94.1 BUN/Creatinine Ratio 27.0 H Glucose 113 H POC Glucose 291 H 144 H Calcium 8.8 PG Care Time/CCT Total # of Minutes Spent Total Time Spent with Patient: Total time spent is greater than 50% in coordination of care (as documented) at patient's floor/unit and/or counseling patient: Coding Level of Care Code 48921 SUB INP/OBS CARE 3/50MIN Diagnoses Severe sepsis A41.9; R65.20 Acute respiratory failure with hypoxia and hypercapnia J96.01; J96.02 Pneumonia J18.9 Tobacco abuse Z72.0 Acute exacerbation of chronic obstructive pulmonary disease J44.1 Hypomagnesemia E83.42 DM2 (diabetes mellitus, type 2) E11.9 Hypertension I10 Anxiety F41.9 MCI (mild cognitive impairment) with memory loss G31.84 CAD (coronary artery disease) I25.10 Urinary incontinence R32 Acute metabolic encephalopathy G93.41 Multiple falls R29.6 DVT prophylaxis Z29.9 S/P coil embolization of cerebral aneurysm Z98.890 Depression F32.A
[2023-07-30] MEDS: QUEtiapine FUMARATE 25 MG TABLET PO SCH (21:05)
[2023-07-31] MEDS: predniSONE 10 MG TABLET PO SCH (09:14)
[2023-07-31] MEDS: LANTUS PER UNIT CHARGE SC SCH (09:19)
== END 2023-07-31 12:28 | disposition home health service (06) | DRG 871 ==
LOC: ED 18:56 → SUATTDRO 21:32 → 2S 21:32

== ENCOUNTER 2023-08-12 09:28 | Observation (INO) ==
[2023-08-12] MEDS: methylPREDNISolone 125 MG/2 ML VIAL IV STA (09:52)
[2023-08-12] MEDS: ALBUTEROL 0.083% NEBU SOLN 3 ML VIAL NEB STA (10:01)
--- NOTE | 2023-08-12 10:02 | Emergency Department Note ---
Impression & Plan Hypoxic respiratory failure, Weakness ED Provider Note NAME: MONSE CORDERO AGE: 68 SEX: M : 1955 ARRIVES VIA: Walk-In INFORMANT: Patient ED PROVIDER(S): Rajeev Aggarwal DO CHIEF COMPLAINT: shortness of breath and weakness HPI: Patient is a 68-year-old male with past medical history of depression, smoking, encephalopathy, COPD chronically on 4 L who presents the ER for weakness. He notes he is unable to get around as he is so weak at home. He cannot eat because he cannot make himself any food. He is not wearing his oxygen. Daughter gives additional history and notes that she went over and found him to be hypoxic at 60%. He was not wearing his oxygen at that time. He was blue. He is not wearing his oxygen at night while sleeping as he cannot stay in the machine. ADDITIONAL HISTORY OBTAINED: Per HPI Chronic Medical/Social Conditions Affecting Care: Per HPI PAST MEDICAL HISTORY:See Below PAST SURGICAL HISTORY:See Below FAMILY HISTORY:See Below SOCIAL HISTORY:See Below HOME MEDICATIONS:See Below ALLERGIES:See Below VITALS:See Below PHYSICAL EXAMINATION: GENERAL: Sitting up in bed, alert, ill-appearing, disheveled, dyspneic with conversation EYE EXAM: normal conjunctiva. PERRL and EOM's grossly intact. OROPHARYNX: no exudate, no erythema, lips, buccal mucosa, and tongue normal and mucous membranes are moist NECK: supple, no nuchal rigidity, no adenopathy, non-tender LUNGS: Wheezing with poor air movement. Normal chest wall mechanics HEART: no murmurs, S1 normal and S2 normal ABDOMEN: abdomen soft, non-tender, normo-active bowel sounds, no masses, no rebound or guarding. UPPER EXTREMITIES: upper extremities are grossly normal. LOWER EXTREMITIES: No pitting edema. Calves are equal bilaterally NEURO EXAM: Normal sensorium, cranial nerves II-XII grossly intact, normal speech, no gross weakness of arms, no gross weakness of legs. MEDICAL DECISION MAKING: Patient is a 68-year-old male who presents the ER for COPD exacerbation as he is significantly short of breath. IV was established blood work was obtained. He is placed on 5 L nasal cannula upon arrival was found to be blue and hypoxic. He was given an hour-long neb treatment as well as steroids. Labs show no significant leukocytosis or anemia. VBG with a pH of 7.3 and a CO2 of 65. BMP with slightly elevated glucose at 154. LFTs bilirubin troponin was negative. Chest x-ray was clean. He was updated bedside. He was initially unable to talk and was after the hour-long neb treatment able to speak in several word sentences. He improved significantly. He was updated bedside. Did discuss with the hospitalist for further evaluation management treatment. Consults/Care Managements Discussions: Per MDM Triage Nursing notes reviewed. Limited review of prior medical records performed Vital Signs: reviewed and remarkable for no significant abnormalities Differential diagnosis: Differential diagnoses includes but is not limited to pneumonia, bronchitis, COPD/Asthma exacerbation, pneumothorax, pulmonary embolism, congestive heart failure, acute coronary syndrome ER treatment provided: See below Diagnostics interpreted by me include EKG and cardiac monitoring as listed below: -Cardiac Monitoring: An order was placed for continuous cardiac monitoring. The monitor shows a rate of 101 with sinus rhythm. -ECG: Sinus rhythm rate of 99 Right axis No PVCs QTc 418 -Laboratory studies:Interpreted by me as stated above in MDM and shown below. Imaging studies: Xrays: As interpreted by me: Portable AP upright 1 view of the chest shows no focal infiltrate CTs show: none Procedures:none Critical Care: I have personally spent 32 minutes of critical care time in the direct management of this patient. This includes bedside care, interpretation of diagnostic studies, and testing, discussion with consultants, patient, and family members, and other required patient management activities. This 32 minutes is in excess of all separately billable procedures. 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 History of coronary artery bypass graft Family History Mother Cancer Sister Cancer of the brain Father Prostate cancer Denies family history of Ovarian cancer Myocardial infarction Breast cancer Colorectal cancer Social History (Reviewed 07/23/23 @ 19:13 by LUCY Greenwood Smoking Status: Current every day smoker Tobacco Type: Cigarettes packs per day: 1.5; Cigarettes Per Day: 40; Do You Dip or Chew Tobacco: No; Hx Alcohol Use: No Hx Substance Use: Yes Last Used Substance: Days (ago) Last Used Substance Other:: 07/20/23 Preferred Language: Malaysian Communication Ability: Effective Visual Impairment: No Limitations Managed Care Director Required: No Beliefs That Will Affect Care: None marital status: Single Current Living Situation: Alone current occupational status: retired Feels Safe at Home: Yes caffeine: Yes Dental Care, Regularly: No Physical Activity Frequency: Does not Exercise Seatbelt Use: always Sunscreen Use: No Assistive Devices: None Allergies Allergies Allergy/AdvReac Type Severity Reaction Status Date / Time sulfamethoxazole AdvReac Intermediate Dizziness Verified 07/23/23 20:04 trimethoprim AdvReac Intermediate Dizziness Verified 07/23/23 20:04 Home Meds Home Medications Medication Instructions Recorded Confirmed acetaminophen 500 mg tablet 1,000 mg PO DIRECTED PRN Pain 04/29/19 08/12/23 (Tylenol Extra Strength) mirtazapine 45 mg tablet 45 mg PO QPM 09/19/20 08/12/23 celecoxib 100 mg capsule (Celebrex) 100 mg PO BID 07/23/23 08/12/23 empagliflozin 10 mg tablet 10 mg PO QAM 07/23/23 08/12/23 (Jardiance) omeprazole 40 mg capsule,delayed 40 mg PO QPM 07/23/23 08/12/23 release Previous Rx's Medication Instructions Recorded metformin 500 mg tablet 500 mg PO BID #60 tabs 08/02/20 atorvastatin 40 mg tablet 40 mg PO QAM #90 tabs 02/27/22 lisinopril 5 mg tablet 5 mg PO QAM #90 tabs 02/27/22 metoprolol succinate 25 mg 25 mg PO QAM #90 tabs 02/27/22 tablet,extended release 24 hr aspirin 81 mg tablet,delayed 81 mg PO DAILY #90 tabs 01/17/23 release Oxygen Home E0424 #1 ea 07/30/23 duloxetine 30 mg capsule,delayed 30 mg PO DAILY #30 caps 07/30/23 release (Cymbalta) fluticasone furoate 100 1 inh inhalation DAILY #60 ea 04/01/24 mcg-vilanterol 25 mcg/dose inhalation powder (Breo Ellipta) ipratropium 0.5 mg-albuterol 3 mg 3 ml inhalation Q6H PRN 07/30/23 (2.5 mg base)/3 mL nebulization cough/wheeze/shortness of breath soln #90 mL nebulizer and compressor #1 ea 07/30/23 nicotine 21 mg/24 hr daily 21 mg transdermal QAM #30 patches 07/30/23 transdermal patch (Nicoderm CQ) Results & Data (ED) Vital Signs Vital Signs - 24 hr 08/12/23 09:32 08/12/23 09:34 08/12/23 09:41 Temperature 36.8 C Temperature Source Temporal Artery Scan Pulse Rate 104 H Pulse Rate [Apical] 94 H Pulse Rate from SpO2 Sensor Respiratory Rate 22 22 Respiratory Effort / Characteristics Blood Pressure 144/82 H Blood Pressure [Left Arm] Blood Pressure Mean 102 Blood Pressure Mean [Left Arm] Pulse Oximetry 80 L 80 L 97 Oxygen Delivery Method Room Air Room Air Nasal Cannula Nasal Cannula Oxygen Flow Rate 0 5 Sepsis Recent Fever Within 48 Hours No Sepsis New/Unexplained Change in Mental Status N/A Sepsis Action Taken by Nursing No Action Required Oxygen Flow Rate - Titration 4 Pulse Oximetry Post Tiitration 90 08/12/23 09:57 08/12/23 10:02 08/12/23 10:22 Temperature Temperature Source Pulse Rate 98 H 94 H Pulse Rate [Apical] 94 H Pulse Rate from SpO2 Sensor Respiratory Rate 20 24 Respiratory Effort / Characteristics Non-Labored Spontaneous Blood Pressure Blood Pressure [Left Arm] Blood Pressure Mean Blood Pressure Mean [Left Arm] Pulse Oximetry 95 95 Oxygen Delivery Method Nasal Cannula Nasal Cannula Oxygen Flow Rate 5 4 Sepsis Recent Fever Within 48 Hours Sepsis New/Unexplained Change in Mental Status Sepsis Action Taken by Nursing Oxygen Flow Rate - Titration Pulse Oximetry Post Tiitration 08/12/23 10:55 08/12/23 11:00 08/12/23 11:30 Temperature Temperature Source Pulse Rate 102 H 105 H Pulse Rate [Apical] 101 H Pulse Rate from SpO2 Sensor 102 H 106 H Respiratory Rate 30 H 26 H 20 Respiratory Effort / Characteristics Blood Pressure Blood Pressure [Left Arm] 132/89 Blood Pressure Mean Blood Pressure Mean [Left Arm] 103 Pulse Oximetry 97 96 94 Oxygen Delivery Method Nebulizer Nebulizer Nebulizer Oxygen Flow Rate Sepsis Recent Fever Within 48 Hours Sepsis New/Unexplained Change in Mental Status Sepsis Action Taken by Nursing Oxygen Flow Rate - Titration Pulse Oximetry Post Tiitration 08/12/23 12:03 08/12/23 12:03 Temperature Temperature Source Pulse Rate 101 H Pulse Rate [Apical] Pulse Rate from SpO2 Sensor 101 H Respiratory Rate 17 Respiratory Effort / Characteristics Blood Pressure 127/88 Blood Pressure [Left Arm] Blood Pressure Mean 105 Blood Pressure Mean [Left Arm] Pulse Oximetry 91 Oxygen Delivery Method Nasal Cannula Oxygen Flow Rate 3 Sepsis Recent Fever Within 48 Hours Sepsis New/Unexplained Change in Mental Status Sepsis Action Taken by Nursing Oxygen Flow Rate - Titration Pulse Oximetry Post Tiitration Laboratory Data 08/12/23 09:54 08/12/23 09:54 Lab Results 08/12/23 08/12/23 Range/Units 09:54 12:35 WBC 7.83 (4.8-10.8) K/ul RBC 5.75 (4.70-6.10) M/uL Hgb 16.8 (14.0-18.0) g/dl Hct 52.5 H (42.0-52.0) % MCV 91.3 (80.0-100.0) fL MCH 29.2 (25.0-34.0) pg MCHC 32.0 (32.0-36.0) g/dL RDW Std Deviation 51.2 H (36.4-46.3) fL RDW Coeff of Christy 15.3 H (11.5-14.5) % Plt Count 195 (130-400) K/uL MPV 9.0 L (9.4-12.4) fL Immature Gran % (Auto) 0.4 % Neut % (Auto) 78.1 % Lymph % (Auto) 13.8 % Dixie % (Auto) 6.9 % Eos % (Auto) 0.4 % Baso % (Auto) 0.4 % Neut # (Auto) 6.12 (1.40-6.50) K/uL Lymph # (Auto) 1.08 L (1.20-3.40) K/uL Dixie # (Auto) 0.54 (0.11-0.59) K/uL Eos # (Auto) 0.03 (0.00-0.50) K/uL Baso # (Auto) 0.03 (0.00-0.20) K/uL Immature Gran # (Auto) 0.03 (0.01-0.20) K/uL VBG pH 7.35 L (7.36-7.41) VBG pCO2 65 H (38-50) mmHg VBG pO2 53 mmHg VBG HCO3 36 mmol/L VBG O2 Saturation 79.6 % VBG Base Excess 7.9 mEq/L Sodium 138 (136-145) mmol/L Potassium 4.4 (3.5-5.1) mmol/L Chloride 99 (98-107) mmol/L Carbon Dioxide 31 (21-32) mmol/L Anion Gap 8 (3-11) BUN 7 (6-23) mg/dl Creatinine 0.85 (0.6-1.4) mg/dl Est Cr Clr Drug Dosing Not Reportable Est GFR ( Amer) 103.0 ml/min Est GFR (Non-Af Amer) 88.9 ml/min BUN/Creatinine Ratio 8.2 L (10-20) Glucose 154 H (70-99(Fasting)) mg/dl Calcium 9.3 (8.6-10.3) mg/dl Total Bilirubin 0.8 (0.2-1.0) mg/dl AST 17 (13-39) U/L ALT 19 (7-52) U/L Alkaline Phosphatase 81 (34-104) U/L Troponin I High Sens 11.2 (0-20) pg/ml Total Protein 7.5 (6.0-8.3) gm/dl Albumin 3.9 (3.4-5.0) gm/dl Globulin 3.6 (2.5-4.0) gm/dl Albumin/Globulin Ratio 1.1 (0.9-2) Lipase 22 (11-82) U/L Administered Medications Discontinued Medications Albuterol (Albuterol 0.083% Nebu Soln 3 Ml Vial) 10 mg NEB NOW STA; Protocol Stop: 08/12/23 09:46 Last Admin: 08/12/23 10:01 Dose: 10 mg Documented By: MAGY Methylprednisolone (Methylprednisolone 125 Mg/2 Ml Vial) 60 mg IV NOW STA Stop: 08/12/23 09:46 Last Admin: 08/12/23 09:52 Dose: 60 mg Documented By: RIK Imaging Data Radiologist's Impression: Chest X-Ray 08/12/23 09:45 XR chest 1V portable HISTORY: 68 years-old Male Chest pain, nonspecific acute shortness of breath with chest pain COMPARISON: 07/23/2023 TECHNIQUE: AP view the chest FINDINGS: Cardiac silhouette is enlarged. Median sternotomy. No pneumothorax, pleural effusion, airspace consolidation or overt pulmonary edema. Bones of the chest appear grossly intact. Subcortical cystic changes of the left glenoid are again seen. Hyperinflation with diaphragm flattening. IMPRESSION: Cardiomegaly without acute process. ACT 112: Negative or not required by law. The above report was generated using voice recognition software. It may contain grammatical, syntax or spelling errors. Electronically signed by: Bala Soto M.D. 08/12/2023 10:17 AM Discharge Plan Visit Data Chief Complaint: Shortness of Breath/Dyspnea Stated Complaint: SOB,CONFUSION ED Provider: Rajeev Aggarwal Discharge Problem: Hypoxic respiratory failure, Weakness Forms Stand Alone Forms: [facility] Transcriptic Prescriptions Prescriptions: No Action metformin 500 mg tablet 500 mg PO BID Qty: 60 5RF aspirin 81 mg tablet,delayed release (DR/EC) 81 mg PO DAILY Qty: 90 3RF lisinopril 5 mg tablet 5 mg PO QAM Qty: 90 3RF metoprolol succinate 25 mg tablet extended release 24 hr 25 mg PO QAM Qty: 90 3RF atorvastatin 40 mg tablet 40 mg PO QAM Qty: 90 3RF acetaminophen [Tylenol Extra Strength] 500 mg tablet 1,000 mg PO DIRECTED PRN (Reason: Pain) mirtazapine 45 mg tablet 45 mg PO QPM omeprazole 40 mg capsule,delayed release(DR/EC) 40 mg PO QPM celecoxib [Celebrex] 100 mg Capsule 100 mg PO BID Hold Instructions: please hold until your prednisone course is complete Jardiance 10 mg tablet 10 mg PO QAM (DME) Oxygen Home E0424 Liters Per Minute See Rx Instructions .ROUTE .MEDSUPPLY Qty: 1 0RF Rx Instructions: 3 L NC O2 at rest/sleep. 4 L with ambulation. (DME) nebulizer and compressor Device See Rx Instructions .Route Qty: 1 0RF Rx Instructions: As directed ipratropium-albuterol 0.5 mg-3 mg(2.5 mg base)/3 mL Solution For Nebulization 3 ml inhalation Q6H PRN (Reason: cough/wheeze/shortness of breath) Qty: 90 0RF nicotine [Nicoderm CQ] 21 mg/24 hr Patch 24 Hour 21 mg transdermal QAM Qty: 30 0RF duloxetine [Cymbalta] 30 mg capsule,delayed release(DR/EC) 30 mg PO DAILY Qty: 30 1RF fluticasone furoate-vilanterol [Breo Ellipta] 100-25 mcg/dose blister with device 1 inh inhalation DAILY Qty: 60 1RF Rx Instructions: rinse mouth with water after each use. spit the water out, do not swallow. Referrals Referrals: Kelly Lilly MD [Physician] - Discharge Problem: Hypoxic respiratory failure Qualifiers: Chronicity: acute Qualified Code(s): J96.01 - Acute respiratory failure with hypoxia
[2023-08-12 10:08] LABS: Basophils # (auto) 0.03 K/uL (0.00-0.20); Basophils % (auto) 0.4 %; Eosinophils # (auto) 0.03 K/uL (0.00-0.50); Eosinophils % (auto) 0.4 %; Hematocrit (blood only) 52.5 % (42.0-52.0); Hemoglobin 16.8 g/dl (14.0-18.0); Immature Granulocytes # (auto) 0.03 K/uL (0.01-0.20); Immature Granulocytes % (auto) 0.4 %; Lymphocytes # (auto) 1.08 K/uL (1.20-3.40); Lymphocytes % (auto) 13.8 %; Mean Corpuscular Hemoglobin 29.2 pg (25.0-34.0); Mean Corpuscular Volume 91.3 fL (80.0-100.0); Monocytes # (auto) 0.54 K/uL (0.11-0.59); Monocytes % (auto) 6.9 %; Neutrophils # (auto) 6.12 K/uL (1.40-6.50); Neutrophils % (auto) 78.1 %; Platelet Count 195 K/uL (130-400); RDW Coefficient of Variation 15.3 % (11.5-14.5); RDW Standard Deviation 51.2 fL (36.4-46.3); Red Blood Count 5.75 M/uL (4.70-6.10); White Blood Count 7.83 K/ul (4.8-10.8)
--- NOTE | 2023-08-12 10:18 | XRay Report ---
XR chest 1V portable HISTORY: 68 years-old Male Chest pain, nonspecific acute shortness of breath with chest pain COMPARISON: 07/23/2023 TECHNIQUE: AP view the chest FINDINGS: Cardiac silhouette is enlarged. Median sternotomy. No pneumothorax, pleural effusion, airspace consol idation or overt pulmonary edema. Bones of the chest appear grossly intact. Subcortical cystic change s of the left glenoid are again seen. Hyperinflation with diaphragm flattening. IMPRESSION: Cardiomegaly without acute process. ACT 112: Negative or not required by law. The above report was generated using voice recognition software. It may contain grammatical, syntax o r spelling errors. Electronically signed by: Bala Soto M.D. 08/12/2023 10:17 AM
[2023-08-12 10:30] LABS: Troponin I High Sensitivity 11.2 pg/ml (0-20)
[2023-08-12 10:44] LABS: Albumin Level 3.9 gm/dl (3.4-5.0); Anion Gap 8 (3-11); Bilirubin,Total 0.8 mg/dl (0.2-1.0); Calcium 9.3 mg/dl (8.6-10.3); Carbon Dioxide 31 mmol/L (21-32); Chloride 99 mmol/L (98-107); Potassium 4.4 mmol/L (3.5-5.1); Sodium 138 mmol/L (136-145)
[2023-08-12 10:50] LABS: Alanine Aminotransferase 19 U/L (7-52); Albumin Globulin Ratio 1.1 (0.9-2); Alkaline Phosphatase 81 U/L (34-104); Aspartate Aminotransferase 17 U/L (13-39); BUN Creatinine Ratio 8.2 (10-20); Blood Urea Nitrogen 7 mg/dl (6-23); Est GFR (Non-African American) 88.9 ml/min; Globulin 3.6 gm/dl (2.5-4.0); Glucose 154 mg/dl (70-99(Fasting)); Lipase 22 U/L (11-82); Total Protein 7.5 gm/dl (6.0-8.3)
--- NOTE | 2023-08-12 11:26 | History & Physical Report ---
Date of Service August 12, 2023 Assessment & Plan (1) COPD with emphysema: Plan: Hypoxia, wheezing 2/2 acute on chronic COPD Patient is prescribed 3 L of nasal cannula at rest and sleep, 4 L with ambulation. Was found cyanotic and with SpO2 60% by his daughter in the setting of not wearing his home oxygen Chest x-ray shows no acute process, he has no leukocytosis on admission, is with significant wheezing at time of admission No evidence of superimposed pneumonia; is with increased wheezing and will treat for recurrent COPD exacerbation. Breo continued. +Incruse Dudomipalmer Recently completed steroid taper, restarted on methylprednisolone was given 60 mg in ER and will continue 40 twice daily and wean as clinically indicated Recently completed resident Rocephin/azithromycin for COPD exacerbation; will treat with 5 days of doxycycline for COPD Patient must use BiPAP nightly Goal SpO2 89%, do not hyperoxygenate above 94% Bicarb normal on admission SpO2 on admission 80%, improved to 97% post 5 L nasal cannula and nebulizer treatments No PFTs available but with emphysematous change on imaging and extensive tobacco history Precontemplative/contemplative with respect to tobacco cessation Patient was ordered trilogy machine prior to discharge. Continue BiPAP nightly . Per his daughter he had hallucinations that his sister was in the doorway in the morning, which wore off later in the day suspicious for hypercapnic encephalopathy [employer] - [facility] pending Case management consulted to help facilitate needs as follows: 1: ? Alternative mask for trilogy that is more tolerable to patient. He reports that he now understands the importance of this and is agreeable to using it at night, but notes he makes it very hard to sleep and is wondering if he can be seen for fitting adjustments 2: PT/OT are consulted. Suspect patient will need at least short-term rehab as he has been too weak to ambulate even to the kitchen for meals. When patient does return home will need home health services. Additionally he reports while sitting was told that his oxygen levels were in the high 90s, did not need oxygen, and was discharged from home health services. Daughter expressed concern this was his HR not Spo2; pt did not reassess his O2 levels following this. Have not verified this yet from services and may have been a miscommunication; however patient has had consistent oxygen requirements with 3-4 L at rest even when well, and was found by his daughter severely hypoxic. Did call [facility] however they are not open until 8:30AM on sunday. Pt w/ admissions for complications of COPD with severe metabolic encephalopathy. He may titrate his own oxygen to remain between 90-94% as needed, it is unlikely he will not need at least 2L at baseline and should verify this with a physician prior to discontinuing entirely in the future. 3: Patient reports that he had a follow-up with a 4/2 PCP but was not allowed to see that provider further; he has [facility] the past and feels he gets good care there and would like to continue following there after dc. Please schedule follow-up at [facility] resident clinic on discharge (2) DM2 (diabetes mellitus, type 2): Plan: Type II DM Outpatient metformin and dapagliflozin held Last A1c 7.3%, basal bolus insulin while inpatient. At last admission while on steroids patient was requiring around 37-53 units of insulin daily. No longer on steroids. Will admit on Lantus 15, CF 20/ratio 10 with glycemic consult admission Goal BSG 162232 (3) Cerebral arterial aneurysm: Plan: History of cerebral aneurysm s/p coil embolization Right ICA, coil embolized 05/2015 (4) Hypertension: Plan: Lisinopril given, patient missed meds for 2 days single dose given (5) Tobacco abuse: Plan: Contemplative/precontemplative with regards to sensation. Cessation recommended. Nicotine patch ordered (6) Anxiety: Plan: Anxiety Continue Cymbalta 20 mg daily, continue Remeron 45 mg nightly, (7) CAD (coronary artery disease): Plan: CAD History of CABG 2017, MATT to LAD/VG to OM 2/VG to PDAPRL Continue metoprolol, aspirin, LUIS, statin No chest pain on admission, troponin is normal Plan DVT prophylaxis: Lovenox Disposition: Medical telemetry due to severe hypoxia in the 60s, monitor for 24 hours and then can likely downgrade to medical telemetry CODE STATUS: Full code Diet: Type II DM History of Present Illness Primary Care Provider: NO PCP Kamran is a 68-year-old male with past medical history of cerebral aneurysm s/p coil embolization, tobacco dependence with COPD and emphysema, DM2, mild cognitive impairment/memory loss, CAD, cannabis use, PTSD recently admitted 07/23/2023 - 07/30/2023 for severe sepsis due to pneumonia requiring BiPAP, and recommended for BiPAP nightly on discharge. During that admission respiratory bio fire and Legionella were negative, patient clinically improved following 5 days of Rocephin/azithromycin and 2 days of levofloxacin. He was discharged to complete a steroid wean, and was recommended to have a repeat chest CT in 3 months for infectious versus inflammatory nodule reevaluation. He presents to the emergency department 08/12/2023 for progressive weakness. Patient is too weak to ambulate at home, and is not eating as he is too weak to get to the kitchen to prepare food. He is prescribed home oxygen with his COPD however has not been wearing it, and was found to be hypoxic to 60% at home by his daughter. Patient has not been tolerating his BiPAP at home. He is recommended for admission due to the door dysfunction, continued weakness, hypoxia Had home health, but didnt Off oxygen was 97% per home health ,but daughter thinks he was reading the heart rate. Cancelled services and was not doing well. Per daughter following this patient was hypoxic at home checks, unfortunately was also not able to follow-up as patient had reportedly been fired from the same office his follow-up was scheduled with, would prefer to follow-up at [facility] clinic Not wearing trilogy at night. Finds it uncomfortable and noisy. Wheezing came back 4-5 days ago No fevers, chills or sweats Isn't sleeping or eating well. Nothign to eat in 2 days. Very fatigued Lost control of bowels again which happens to him when sick No nausea or vomiting Pt was hallucinating he saw his sister at the door last night, mentating normally at time of hsopitalization but daughter very concerned o2 low or CO2 high as that has caused him to hallucinate in the past. Using the Breo at home. Medical History: Reviewed Medications: Reviewed Surgical History: Reviewed Family history: Reviewed Allergies: Reviewed Social History: Current smoker, about 0.5ppd x58 years. No etoh use. + recreational marijuana intermittently. No vapring Code Status: Full Code Allergies Allergy/AdvReac Type Severity Reaction Status Date / Time sulfamethoxazole AdvReac Intermediate Dizziness Verified 07/23/23 20:04 trimethoprim AdvReac Intermediate Dizziness Verified 07/23/23 20:04 Home Medications Medication Instructions Recorded Confirmed Type acetaminophen 500 mg tablet 1,000 mg PO DIRECTED PRN Pain 04/29/19 08/12/23 History (Tylenol Extra Strength) metformin 500 mg tablet 500 mg PO BID #60 tabs 08/02/20 08/12/23 Rx mirtazapine 45 mg tablet 45 mg PO QPM 09/19/20 08/12/23 History atorvastatin 40 mg tablet 40 mg PO QAM #90 tabs 02/27/22 08/12/23 Rx lisinopril 5 mg tablet 5 mg PO QAM #90 tabs 02/27/22 08/12/23 Rx metoprolol succinate 25 mg 25 mg PO QAM #90 tabs 02/27/22 08/12/23 Rx tablet,extended release 24 hr aspirin 81 mg tablet,delayed 81 mg PO DAILY #90 tabs 01/17/23 08/12/23 Rx release celecoxib 100 mg capsule (Celebrex) 100 mg PO BID 07/23/23 08/12/23 History empagliflozin 10 mg tablet 10 mg PO QAM 07/23/23 08/12/23 History (Jardiance) omeprazole 40 mg capsule,delayed 40 mg PO QPM 07/23/23 08/12/23 History release Oxygen Home E0424 #1 ea 07/30/23 Rx duloxetine 30 mg capsule,delayed 30 mg PO DAILY #30 caps 07/30/23 08/12/23 Rx release (Cymbalta) fluticasone furoate 100 1 inh inhalation DAILY #60 ea 07/30/23 08/12/23 Rx mcg-vilanterol 25 mcg/dose inhalation powder (Breo Ellipta) ipratropium 0.5 mg-albuterol 3 mg 3 ml inhalation Q6H PRN 07/30/23 08/12/23 Rx (2.5 mg base)/3 mL nebulization cough/wheeze/shortness of breath soln #90 mL nebulizer and compressor #1 ea 07/30/23 Rx nicotine 21 mg/24 hr daily 21 mg transdermal QAM #30 patches 07/30/23 08/12/23 Rx transdermal patch (Nicoderm CQ) 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 History of coronary artery bypass graft Family History Mother Cancer Sister Cancer of the brain Father Prostate cancer Denies family history of Ovarian cancer Myocardial infarction Breast cancer Colorectal cancer Social History Smoking Status: Current every day smoker Tobacco Type: Cigarettes packs per day: 1.5; Cigarettes Per Day: 40; Do You Dip or Chew Tobacco: No; Hx Alcohol Use: No Hx Substance Use: Yes Last Used Substance: Days (ago) Last Used Substance Other:: Preferred Language: French Communication Ability: Effective Visual Impairment: No Limitations Be[employer] Ed[employer]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 NAD. Cooperative. HEENT: Atraumatic, normocephalic. Vision and hearing grossly intact Pulm: Diffuse scattered wheezing. Symmetrical chest rise. No increased work of breathing. No respiratory distress. Cardiac: regular, tachycardic, -mrg. Radial pulses intact and symmetrical. Abdominal: Nontender, nondistended, soft. BS present. Extremities: Warm and dry moves all extremities equally, hip flexion, ankle dorsiflexion/plantarflexion, knee flexion is intact 5/5 but fatigues easily. No sensory deficits. No saddle anesthesia Results & Data Results & Data Vital Signs (Past 12 Hours) Vital Signs Temp Pulse Pulse Resp BP BP Pulse Ox 08/12/23 10:55 101 H 30 H 132/89 97 08/12/23 10:22 94 H 08/12/23 10:02 94 H 24 95 08/12/23 09:57 98 H 20 95 08/12/23 09:41 94 H 22 97 08/12/23 09:34 80 L 08/12/23 09:32 36.8 C 104 H 22 144/82 H 80 L O2 Del Method O2 Flow Rate 08/12/23 10:55 Nebulizer 08/12/23 10:22 08/12/23 10:02 Nasal Cannula 4 08/12/23 09:57 Nasal Cannula 5 08/12/23 09:41 Nasal Cannula 5 08/12/23 09:34 Room Air, Nasal Cannula 0 08/12/23 09:32 Room Air PG Care Time/CCT Total # of Minutes Spent Total Time Spent with Patient: Total time spent is greater than 50% in coordination of care (as documented) at patient's floor/unit and/or counseling patient: Coding Level of Care Code 57786 INT INP/OBS CARE 3/75MIN Diagnoses COPD with emphysema J43.9 DM2 (diabetes mellitus, type 2) E11.9 Cerebral arterial aneurysm I67.1 Hypertension I10 Tobacco abuse Z72.0 Anxiety F41.9 CAD (coronary artery disease) I25.10
[2023-08-12] MEDS ORDERED: GLUCOSE 40% GEL 15 GM TUBE PO PRN (12:05)
[2023-08-12] MEDS ORDERED: PHARMACY GLYCEMIC MGMT CONSULT PRN (12:05)
[2023-08-12] MEDS ORDERED: CARBOHYDRATES FOR HYPOGLYCEMIA PO PRN (12:05)
[2023-08-12] MEDS ORDERED: GLUCOSE 10 TAB/TUBE PO PRN (12:05)
[2023-08-12] MEDS ORDERED: DEXTROSE 50% 50 ML SYRINGE IV PRN (12:05)
[2023-08-12] MEDS ORDERED: ALBUT/IPRATROP 3MG/0.5MG NEB 3 ML VIAL NEB PRN (12:05)
[2023-08-12 12:42] LABS: Base Excess VBG 7.9 mEq/L; HCO3 VBG 36 mmol/L; Oxygen Saturation VBG 79.6 %; PCO2 VBG 65 mmHg (38-50); PO2 VBG 53 mmHg; pH VBG 7.35 (7.36-7.41)
[2023-08-12] MEDS ORDERED: ALBUT/IPRATROP 3MG/0.5MG NEB 3 ML VIAL INH PRN (13:48)
[2023-08-12] MEDS ORDERED: ACETAMINOPHEN 500 MG TAB PO PRN (13:48)
[2023-08-12] MEDS: lisinopril 5 MG TAB PO ONE (14:59)
[2023-08-12] MEDS: CELECOXIB 100 MG CAP PO PRN (15:00)
[2023-08-12] MEDS: METOPROLOL SUCC 25MG EXT REL TAB PO STA (15:00)
[2023-08-12] MEDS: DULoxetine HCL 30 MG CAP PO ONE (15:01)
[2023-08-12] MEDS: NICOTINE 21 MG/24 HR TDSY TD SCH (15:02)
[2023-08-12] MEDS: LANTUS PER UNIT CHARGE SQ ONE (15:07)
--- NOTE | 2023-08-12 15:22 | Electrocardiogram Report ---
Test Reason : Blood Pressure : / mmHG Vent. Rate : 099 BPM Atrial Rate : 099 BPM P-R Int : 134 ms QRS Dur : 070 ms QT Int : 326 ms P-R-T Axes : 075 092 080 degrees QTc Int : 418 ms Sinus rhythm with Premature atrial complexes Possible Left atrial enlargement Rightward axis Abnormal ECG When compared with ECG of 23-JUL-2023 19:08, Non-specific change in ST segment in Inferior leads T wave inversion no longer evident in Inferior leads Confirmed by Jose Webber ([id number]) on 08/12/2023 3:21:55 PM Referred By: REFERRED SELF Confirmed By:Neymar Webber
[2023-08-12] MEDS: INSULIN ASPART PER UNIT CHARGE SC SCH ×2 (17:30→23:56)
[2023-08-12] MEDS: MIRTAZAPINE SOLTAB 15 MG PO SCH (20:50)
[2023-08-12] MEDS: DOXYCYCLINE HYCLATE 100 MG CAP PO SCH (20:51)
[2023-08-12] MEDS: PANTOprazole 40 MG TAB PO SCH (20:51)
[2023-08-13] MEDS: MELATONIN 3 MG TAB PO PRN (00:28)
[2023-08-13 07:23] LABS: Basophils # (auto) 0.02 K/uL (0.00-0.20); Basophils % (auto) 0.3 %; Eosinophils # (auto) 0.03 K/uL (0.00-0.50); Eosinophils % (auto) 0.5 %; Hematocrit (blood only) 49.4 % (42.0-52.0); Hemoglobin 15.8 g/dl (14.0-18.0); Immature Granulocytes # (auto) 0.01 K/uL (0.01-0.20); Immature Granulocytes % (auto) 0.2 %; Lymphocytes # (auto) 1.84 K/uL (1.20-3.40); Lymphocytes % (auto) 28.4 %; Mean Corpuscular Hemoglobin 29.2 pg (25.0-34.0); Mean Corpuscular Volume 91.1 fL (80.0-100.0); Mean Platelet Volume 9.3 fL (9.4-12.4); Monocytes # (auto) 0.54 K/uL (0.11-0.59); Monocytes % (auto) 8.3 %; Neutrophils # (auto) 4.04 K/uL (1.40-6.50); Neutrophils % (auto) 62.3 %; Platelet Count 174 K/uL (130-400); RDW Coefficient of Variation 15.2 % (11.5-14.5); RDW Standard Deviation 51.5 fL (36.4-46.3); Red Blood Count 5.42 M/uL (4.70-6.10); White Blood Count 6.48 K/ul (4.8-10.8)
[2023-08-13 07:46] LABS: BUN Creatinine Ratio 25.7 (10-20); Calcium 9.4 mg/dl (8.6-10.3); Creatinine Clr Calc Pharmacy 77.8 ml/min; Est GFR (African American) 79.8 ml/min; Est GFR (Non-African American) 68.9 ml/min; Potassium 4.6 mmol/L (3.5-5.1)
--- NOTE | 2023-08-13 08:38 | Hospitalist Progress Note ---
Date of Service August 13, 2023 Assessment & Plan (1) COPD with emphysema: Plan: Acute on chronic respiratory failure with hypoxia, typically on oxygen Chest x-ray shows no acute process, Breo continued. +Incruse Duonebs methylprednisolone 40 twice daily and wean Recently completed resident Rocephin/azithromycin for COPD exacerbation; will treat with 5 days of doxycycline for COPD Patient must use BiPAP nightly -counselled regarding tobacco cessation, nicotine patch ordered (2) DM2 (diabetes mellitus, type 2): Plan: Type II DM Outpatient metformin and dapagliflozin held Last A1c 7.3%, basal bolus insulin while inpatient. At last admission while on steroids patient was requiring around 37-53 units of insulin daily. No longer on steroids. Will admit on Lantus 15, CF 20/ratio 10 with glycemic consult admission Goal BSG 534164 (3) Cerebral arterial aneurysm: Plan: History of cerebral aneurysm s/p coil embolization Right ICA, coil embolized 05/2015 (4) CAD (coronary artery disease): Plan: CAD History of CABG 2017, MATT to LAD/VG to OM 2/VG to PDAPRL Continue metoprolol, aspirin, LUIS, statin No chest pain on admission, troponin is normal chronic and stable htn treat with cardiac risk reducing meds as above (5) Anxiety: Plan: Anxiety Continue Cymbalta 20 mg daily, continue Remeron 45 mg nightly, Plan DVT prophylaxis: Lovenox Disposition: Medical telemetry due to severe hypoxia in the 60s, monitor for 24 hours and then can likely downgrade to medical telemetry CODE STATUS: Full code Diet: Type II DM Admission and Anticipated Discharge Date Admission Date: August 12, 2023 Results & Data Results & Data Vital Signs (Past 12 Hours) Vital Signs Temp Pulse Pulse Resp BP Pulse Ox O2 Del Method 08/13/23 07:53 75 08/13/23 07:34 97.5 F L 83 18 112/65 95 Nasal Cannula 08/13/23 07:27 Nasal Cannula 08/13/23 02:46 98.2 F 82 20 110/74 90 CPAP 08/13/23 02:15 84 19 94 08/13/23 01:19 154 H 08/12/23 23:20 89 08/12/23 22:54 98.8 F 91 H 18 114/74 94 High Flow Nasal Cannula 08/12/23 22:50 Nasal Cannula, CPAP 08/12/23 22:05 88 21 93 O2 Flow Rate 08/13/23 07:53 08/13/23 07:34 3 08/13/23 07:27 3 08/13/23 02:46 08/13/23 02:15 4 08/13/23 01:19 08/12/23 23:20 08/12/23 22:54 08/12/23 22:50 3 08/12/23 22:05 4 PG Care Time/CCT Total # of Minutes Spent Total Time Spent with Patient: Total time spent is greater than 50% in coordination of care (as documented) at patient's floor/unit and/or counseling patient: Coding Diagnoses COPD with emphysema J43.9 DM2 (diabetes mellitus, type 2) E11.9 Cerebral arterial aneurysm I67.1 CAD (coronary artery disease) I25.10 Anxiety F41.9
--- NOTE | 2023-08-13 08:49 | Pharmacy Report ---
Pharmacy Glycemic Short Note 2 - Date of Service August 13, 2023 - Glycemic Short BSG Results (Last 24 hours): 08/12/23 08/12/23 08/12/23 09:54 13:45 16:59 Glucose 154 H POC Glucose 191 H 221 H 08/12/23 08/12/23 08/13/23 20:11 23:43 06:06 Glucose POC Glucose 98 166 H 130 H 08/13/23 08/13/23 06:59 07:20 Glucose 155 H POC Glucose 160 H OUTPATIENT ANTIDIABETIC REGIMEN: * Metformin 500 mg PO BIDM * Jardiance 10 mg PO daily HbA1c: 7.3% (07/14/23) ASSESSMENT: * ANSHU is a 68 year old male admitted w/ COPD exacerbation * Currently ordered methylprednisolone 40 mg IV q12h * Past inpatient data suggests that patient requires more insulin while on steroids, but not an overly aggressive regimen * Some concern for hypoglycemia based on historic trends * Blood sugars reasonable controlled thus far, do not anticipate any changes to regimen today PLAN FOR INPATIENT GLYCEMIC CONTROL: * Hold outpatient oral diabetes medications * Basal insulin * Lantus 10-15 units SQ BID (see EHR for details) * Bolus insulin * NovoLog per scale ACHS or Q6hrs while NPO * Goal Range: Low 110 mg/dL - High 140 mg/dL * Correction Factor: 20 mg/dL/unit * Nutritional / Prandial insulin per carb ratio of 1 unit per 6 grams CHO consumed
[2023-08-13] MEDS: LANTUS PER UNIT CHARGE SQ SCH (09:05)
[2023-08-13] MEDS: UMECLIDINIUM BROMIDE 62.5MCG/BLISTER 7 PUFFS/INHALER INH SCH (09:07)
[2023-08-13] MEDS: methylPREDNISolone 40 MG in SYRINGE 0 ML IV SCH (09:07)
[2023-08-13] MEDS: FLUTICASONE/VILANTEROL 100/25MCG 14 PUFFS/INHALER INH SCH (09:07)
[2023-08-13] MEDS: lisinopril 5 MG TAB PO SCH (09:15)
[2023-08-13] MEDS: METOPROLOL SUCC 25MG EXT REL TAB PO SCH (09:16)
[2023-08-13] MEDS: ATORVASTATIN 40 MG TAB PO SCH (09:16)
[2023-08-13] MEDS: ASPIRIN 81 MG ECTAB PO SCH (09:16)
[2023-08-13] MEDS: DULoxetine HCL 30 MG CAP PO SCH (10:33)
--- NOTE | 2023-08-13 14:37 | Communication Note ---
Date of Service: August 13, 2023 By CMS guidelines, a determination that the admission or continued stay is not medically necessary has been made by a member of the UR committee and a physi jin for this hospital stay, therefore a Code 44 will be completed and the Inpatient admission will be changed to outpatient.
--- NOTE | 2023-08-13 14:38 | Communication Note ---
Date of Service: August 13, 2023 By CMS guidelines, a determination that the admission or continued stay is not medically necessary has been made by a member of the UR committee and a phy sician for this hospital stay, therefore a Code 44 will be completed and the Inpatient admission will be changed to outpatient.
--- NOTE | 2023-08-13 16:05 | Discharge Summary ---
Date of Service August 13, 2023 Admission HPI Per Admitting Provider Kamran is a 68-year-old male with past medical history of cerebral aneurysm s/p coil embolization, tobacco dependence with COPD and emphysema, DM2, mild cognitive impairment/memory loss, CAD, cannabis use, PTSD recently admitted 07/23/2023 - 07/30/2023 for severe sepsis due to pneumonia requiring BiPAP, and recommended for BiPAP nightly on discharge. During that admission respiratory bio fire and Legionella were negative, patient clinically improved following 5 days of Rocephin/azithromycin and 2 days of levofloxacin. He was discharged to complete a steroid wean, and was recommended to have a repeat chest CT in 3 months for infectious versus inflammatory nodule reevaluation. He presents to the emergency department 08/12/2023 for progressive weakness. Patient is too weak to ambulate at home, and is not eating as he is too weak to get to the kitchen to prepare food. He is prescribed home oxygen with his COPD however has not been wearing it, and was found to be hypoxic to 60% at home by his daughter. Patient has not been tolerating his BiPAP at home. He is recommended for admission due to the door dysfunction, continued weakness, hypoxia Had home health, but didnt Off oxygen was 97% per home health ,but daughter thinks he was reading the heart rate. Cancelled services and was not doing well. Per daughter following this patient was hypoxic at home checks, unfortunately was also not able to follow-up as patient had reportedly been fired from the same office his follow-up was scheduled with, would prefer to follow-up at [facility] clinic Not wearing trilogy at night. Finds it uncomfortable and noisy. Wheezing came back 4-5 days ago No fevers, chills or sweats Isn't sleeping or eating well. Nothign to eat in 2 days. Very fatigued Lost control of bowels again which happens to him when sick No nausea or vomiting Pt was hallucinating he saw his sister at the door last night, mentating normally at time of hsopitalization but daughter very concerned o2 low or CO2 high as that has caused him to hallucinate in the past. Using the Breo at home. Medical History: Reviewed Medications: Reviewed Surgical History: Reviewed Family history: Reviewed Allergies: Reviewed Social History: Current smoker, about 0.5ppd x58 years. No etoh use. + recreational marijuana intermittently. No vapring Code Status: Full Code Principal Diagnosis acute on chronic respiratory failure with hypoxia Discharge Exam Awake alert and oriented Lungs definite changes of COPD with prolonged expiratory phase however he has no focal air loss and wheezes on my examination Discharge Data Allergies Allergy/AdvReac Type Severity Reaction Status Date / Time sulfamethoxazole AdvReac Intermediate Dizziness Verified 07/23/23 20:04 trimethoprim AdvReac Intermediate Dizziness Verified 07/23/23 20:04 Consultations 08/12/23 11:21 ED Decision to Admit Stat Hospital Course (1) COPD with emphysema: Acute on chronic respiratory failure with hypoxia, typically on oxygen patient improved with compliance of BiPAP. Patient will take mask on from hospital. Chest x-ray shows no acute process, Breo continued. +Incruse Outpatient taper to p.o. prednisone Recently completed resident Rocephin/azithromycin for COPD exacerbation; Patient must use BiPAP nightly compliance is reinforced -counselled regarding tobacco cessation, Discussed with daughter regarding compliance. Difficulty with arranging home health due to the patient stating he is not homebound. Daughter is going to try to call [employer] to try to see if they can make her mask fit to his device or at least provide a longer aired tubing so he can get more restful sleep. (2) DM2 (diabetes mellitus, type 2): Type II DM Outpatient metformin and dapagliflozin held Last A1c 7.3%, return home medications prednisone taper over the next 16 days (3) Cerebral arterial aneurysm: History of cerebral aneurysm s/p coil embolization Right ICA, coil embolized 05/2015 (4) CAD (coronary artery disease): CAD History of CABG 2017, MATT to LAD/VG to OM 2/VG to PDAPRL Continue metoprolol, aspirin, LUIS, statin No chest pain on admission, troponin is normal chronic and stable htn treat with cardiac risk reducing meds as above (5) Anxiety: Anxiety Continue Cymbalta 20 mg daily, continue Remeron 45 mg nightly, Plan CODE STATUS: Full code Diet: Type II DM Total Time Total Time Spent Total Time Spent (In Minutes): It required greater than 30 minutes to prepare this patient for discharge. 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 Discharge Diagnosis: acute on chronic respiratory failure with hypoxia Activity: Resume your previous activity Non-emergency contact: Primary Care Provider Call non-emergency contact if: your symptoms worsen Follow-up/Referrals: Leslie Lind DO [Primary Care Provider] - 08/17/23 10:25 am (Hospital follow up appointment) PCP,NO [Physician] - Diet: Carb Consistent or DM2 Addtl Attending Provider Instructions: please wear your mask for your Trelegy as much as possible even during the day when taking a nap/rest complete prednisone tapering dose see your primary care for follow up Pending Studies at Discharge: No Stand-Alone Forms: My [facility] [employer], Smoking Cessation Medications and DC Order Prescriptions: New prednisone 10 mg tablet 10 mg PO DIRECTED Qty: 40 0RF Rx Instructions: 4 a day x 4 d>3 a day x 4 d>2 a day x 4 d>1 a day Continued metformin 500 mg tablet 500 mg PO BID Qty: 60 5RF aspirin 81 mg tablet,delayed release (DR/EC) 81 mg PO DAILY Qty: 90 3RF lisinopril 5 mg tablet 5 mg PO QAM Qty: 90 3RF metoprolol succinate 25 mg tablet extended release 24 hr 25 mg PO QAM Qty: 90 3RF atorvastatin 40 mg tablet 40 mg PO QAM Qty: 90 3RF acetaminophen [Tylenol Extra Strength] 500 mg tablet 1,000 mg PO DIRECTED PRN (Reason: Pain) mirtazapine 45 mg tablet 45 mg PO QPM omeprazole 40 mg capsule,delayed release(DR/EC) 40 mg PO QPM celecoxib [Celebrex] 100 mg Capsule 100 mg PO BID Hold Instructions: please hold until your prednisone course is complete Jardiance 10 mg tablet 10 mg PO QAM (DME) Oxygen Home E0424 Liters Per Minute See Rx Instructions .ROUTE .MEDSUPPLY Qty: 1 0RF Rx Instructions: 3 L NC O2 at rest/sleep. 4 L with ambulation. (DME) nebulizer and compressor Device See Rx Instructions .Route Qty: 1 0RF Rx Instructions: As directed ipratropium-albuterol 0.5 mg-3 mg(2.5 mg base)/3 mL Solution For Nebulization 3 ml inhalation Q6H PRN (Reason: cough/wheeze/shortness of breath) Qty: 90 0RF nicotine [Nicoderm CQ] 21 mg/24 hr Patch 24 Hour 21 mg transdermal QAM Qty: 30 0RF duloxetine [Cymbalta] 30 mg capsule,delayed release(DR/EC) 30 mg PO DAILY Qty: 30 1RF fluticasone furoate-vilanterol [Breo Ellipta] 100-25 mcg/dose blister with device 1 inh inhalation DAILY Qty: 60 1RF Rx Instructions: rinse mouth with water after each use. spit the water out, do not swallow. Discharge Orders: Discharge Order (Routine); Ordered 08/13/23 Ordered By: James Gil/Other Patient Handouts: High Blood Sugar (Hyperglycemia), Hypoglycemia (Low Blood Sugar), Managing Type 2 Diabetes Admission Data Admit Date/Time: 08/12/23 12:05 Attending Provider: James Trujillo Admit Provider: Tomasz Church Primary Care Provider: Leslie Lind Other Providers: Tomasz Church Other Interventions: Discharge Summary Assessment (RN) Last Done: 08/13/23 14:53 Coding Level of Care Code 02608 INP/OBS DISCH >30 MIN Diagnoses COPD with emphysema J43.9 DM2 (diabetes mellitus, type 2) E11.9 Cerebral arterial aneurysm I67.1 CAD (coronary artery disease) I25.10 Anxiety F41.9
== END 2023-08-13 16:05 | disposition home or self-care (01) | DRG 189 ==
LOC: ED 09:28 → SUATTDRO 12:05 → INTOOBSV 12:05 → 2S 12:05

== ENCOUNTER 2023-08-15 11:45 | Inpatient (IN) ==
[2023-08-15 12:38] LABS: Base Excess VBG 11.1 mEq/L; HCO3 VBG 41 mmol/L; Oxygen Saturation VBG < 60.0 %; PCO2 VBG 79 mmHg (38-50); PO2 VBG 35 mmHg; pH VBG 7.32 (7.36-7.41)
[2023-08-15 12:52] LABS: Basophils # (auto) 0.02 K/uL (0.00-0.20); Basophils % (auto) 0.2 %; Eosinophils # (auto) 0.02 K/uL (0.00-0.50); Eosinophils % (auto) 0.2 %; Hemoglobin 16.8 g/dl (14.0-18.0); Immature Granulocytes # (auto) 0.04 K/uL (0.01-0.20); Immature Granulocytes % (auto) 0.5 %; Lymphocytes # (auto) 0.94 K/uL (1.20-3.40); Lymphocytes % (auto) 11.2 %; Mean Corpuscular Hemoglobin 28.9 pg (25.0-34.0); Mean Corpuscular Hgb Conc 30.5 g/dL (32.0-36.0); Mean Corpuscular Volume 94.7 fL (80.0-100.0); Mean Platelet Volume 9.5 fL (9.4-12.4); Monocytes # (auto) 0.21 K/uL (0.11-0.59); Monocytes % (auto) 2.5 %; Neutrophils # (auto) 7.16 K/uL (1.40-6.50); Neutrophils % (auto) 85.4 %; Platelet Count 210 K/uL (130-400); RDW Coefficient of Variation 15.2 % (11.5-14.5); RDW Standard Deviation 52.2 fL (36.4-46.3); Red Blood Count 5.81 M/uL (4.70-6.10); White Blood Count 8.39 K/ul (4.8-10.8)
[2023-08-15 13:04] LABS: Est GFR (African American) 107.9 ml/min; Est GFR (Non-African American) 93.1 ml/min
--- NOTE | 2023-08-15 13:14 | XRay Report ---
SINGLE VIEW CHEST CLINICAL HISTORY: Atypical chest pain FINDINGS: 2 AP, portable, upright chest radiographs are compared to study dated 08/12/2023 and correla yogi with chest CT dated 07/23/2023. The patient is status post midline sternotomy. The heart is enlarg ed noting atherosclerotic calcification of the thoracic aorta. The pulmonary vasculature is not conge sted. Emphysema and chronic interstitial thickening is similar to previous. There is bibasilar scarri ng/atelectasis. No airspace consolidation or large pleural effusion is identified. No pneumothorax is seen. The skeletal structures are osteopenic. The bony thorax is grossly intact. A benign-appearing lucency is again seen in the left glenoid. IMPRESSION: Cardiomegaly and emphysema with no acute cardiopulmonary abnormality identified. ACT 112: Negative or not required by law. Electronically signed by: Oren Perez M.D. 08/15/2023 1:13 PM
[2023-08-15 13:17] LABS: Partial Thromboplastin Ratio 0.9; Partial Thromboplastin Time 26 Seconds (21-31); Prothrombin Time 10.8 Seconds (9.0-12.0)
--- NOTE | 2023-08-15 14:14 | CT Scan Report ---
CT OF THE HEAD WITHOUT CONTRAST CLINICAL HISTORY: Altered mental status. COMPARISON STUDY: Head CT July 25, 2023. CT DOSE: 625.8 mGy.cm TECHNIQUE: Helical axial images of the head were obtained without IV contrast. Automated exposure con trol was utilized for the study. A dose lowering technique was utilized adhering to the principles o f ALARA. FINDINGS: Artifact from embolization coils adjacent to the right clinoid process is noted. Ventricula r system is unremarkable. Basal cisterns are patent. There are no extra-axial collections. No acute i ntracranial hemorrhage, midline shift or mass effect is present. White matter hypodensities are uncha nged. There are no findings to suggest acute dural sinus thrombosis or acute territorial infarct. The re are no calvarial fracture. IMPRESSION: No acute intracranial findings. No change in appearance of the brain. ACT 112: Negative or not required by law. Electronically signed by: Tony Marin M.D. 08/15/2023 2:12 PM
[2023-08-15 14:28] LABS: Alanine Aminotransferase 32 U/L (7-52); Albumin Globulin Ratio 1.2 (0.9-2); Albumin Level 4.2 gm/dl (3.4-5.0); Alkaline Phosphatase 73 U/L (34-104); Anion Gap 6 (3-11); Aspartate Aminotransferase 29 U/L (13-39); BUN Creatinine Ratio 22.4 (10-20); Bilirubin,Total 0.6 mg/dl (0.2-1.0); Blood Urea Nitrogen 17 mg/dl (6-23); Calcium 9.9 mg/dl (8.6-10.3); Carbon Dioxide 36 mmol/L (21-32); Chloride 96 mmol/L (98-107); Globulin 3.5 gm/dl (2.5-4.0); Glucose 178 mg/dl (70-99(Fasting)); Potassium 4.3 mmol/L (3.5-5.1); Sodium 138 mmol/L (136-145); Total Protein 7.7 gm/dl (6.0-8.3); Troponin I High Sensitivity 8.2 pg/ml (0-20)
--- NOTE | 2023-08-15 14:42 | History & Physical Report ---
Date of Service August 15, 2023 Assessment & Plan (1) Encounter for assessment of healthcare decision-making capacity: Plan: Patient currently lacks insight into his medical decision making as evidence by lack of knowledge to why he is here today. "legally " from his per his daughter and not listed as contact. Daughter "Mamta" is only child wishes him to be admitted for placement at this time as not safe to be at home as evidenced by history in H&P. Consult ethics as if not and without POA paperwork hi should be making his medical decisions. He is orientated x3 in addition but lacks medical decisional capacity on admission but this should be continually reassessed. (2) Failure to thrive in adult: Plan: Not able to cope at home. x2 readmissions in July as unable to cope at home. Planning on placement which patient is agreeable to at this time. PT/OT. (3) COPD with emphysema: Plan: Continue his routine inhalers or hospital formulary equivalent Duonebs PRN No acute exacerbation suspected Continue prednisone taper from last admission (4) Acute on chronic respiratory failure with hypoxia and hypercapnia: Plan: Appears to have some acute decompensation as evidence by non-compensated acidosis. Suspect not using his BiPAP HS, will order to use here. 2 step [07/30/23] 3LPM O2 at rest and 4LPM O2 on exertion (5) Tobacco dependence: Plan: Continues to smoke per patient with continuous oxygen use. Nicotine patch ordered. (6) Urinary incontinence: Plan: Inability to get to the toilet in time (7) Depression: Plan: Continue duloxetine and mirtazapine (8) DM2 (diabetes mellitus, type 2): Plan: HbA1C 7. in June Continue metformin and Jardiance (9) Hypertension: Plan: Continue lisinopril and metoprolol Plan VTE Prophylaxis - Lovenox 40mg SQ daily Diet - regular Disposition - observation to med/surg Admission and Anticipated Discharge Date Admission Date: August 15, 2023 History of Present Illness Chief Complaint: None Primary Care Provider: Leslie Billingsley DO Kamran Albert is a 68 year old male who presents to the ER at the behest of his family due to inability to cope at home alone since discharge 2 days ago. The patient reports he is unsure why he is here, he feels at his baseline self and recommends I talk to his daughter why he is here. On discussion with his daughter over the phone (Mamta) she reports he lives alone in a trailer. Every time he goes home he does not understand the oxygen or how to use this and how to hook it up to the ventilator and this has also been reported to her from [employer] who have been in to help set it up. He continues to smoke despite needing 24/7 oxygen. He has been wetting himself as unable to get to the toilet. He has zero energy therefore cannot cook and hasn't eaten. He is confused and not making sense a lot of the time which may improve while in hospital as the BiPAP is used for his CO2 retention at night and oxygen during the day. No acute exacerbation suspected, he has ongoing non productive cough and shortness of breath. He is legally from his but not . No POA paperwork. She reports she is an only child. Allergies Allergy/AdvReac Type Severity Reaction Status Date / Time sulfamethoxazole AdvReac Intermediate Dizziness Verified 08/15/23 15:17 trimethoprim AdvReac Intermediate Dizziness Verified 08/15/23 15:17 Home Medications Medication Instructions Recorded Confirmed Type acetaminophen 500 mg tablet 1,000 mg PO DIRECTED PRN Pain 04/29/19 08/15/23 History (Tylenol Extra Strength) mirtazapine 45 mg tablet 45 mg PO QPM 09/19/20 08/15/23 History atorvastatin 40 mg tablet 40 mg PO QAM #90 tabs 02/27/22 08/15/23 Rx lisinopril 5 mg tablet 5 mg PO QAM #90 tabs 02/27/22 08/15/23 Rx metoprolol succinate 25 mg 25 mg PO QAM #90 tabs 02/27/22 08/15/23 Rx tablet,extended release 24 hr celecoxib 100 mg capsule (Celebrex) 100 mg PO BID 07/23/23 08/15/23 History empagliflozin 10 mg tablet 10 mg PO QAM 07/23/23 08/15/23 History (Jardiance) omeprazole 40 mg capsule,delayed 40 mg PO QPM 07/23/23 08/15/23 History release Oxygen Home E0424 #1 ea 07/30/23 08/15/23 Rx duloxetine 30 mg capsule,delayed 30 mg PO DAILY #30 caps 07/30/23 08/15/23 Rx release (Cymbalta) fluticasone furoate 100 1 inh inhalation DAILY #60 ea 07/30/23 08/15/23 Rx mcg-vilanterol 25 mcg/dose inhalation powder (Breo Ellipta) ipratropium 0.5 mg-albuterol 3 mg 3 ml inhalation Q6H PRN 07/30/23 08/15/23 Rx (2.5 mg base)/3 mL nebulization cough/wheeze/shortness of breath soln #90 mL nebulizer and compressor #1 ea 07/30/23 08/15/23 Rx nicotine 21 mg/24 hr daily 21 mg transdermal QAM #30 patches 07/30/23 08/15/23 Rx transdermal patch (Nicoderm CQ) prednisone 10 mg tablet 10 mg PO DIRECTED #40 tabs 08/13/23 08/15/23 Rx aspirin 81 mg tablet,delayed 81 mg PO QAM 08/15/23 08/15/23 History release metformin 500 mg tablet,extended 1,000 mg PO QPM 08/15/23 08/15/23 History release 24 hr 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 History of coronary artery bypass graft Family History Mother Cancer Sister Cancer of the brain Father Prostate cancer Denies family history of Ovarian cancer Myocardial infarction Breast cancer Colorectal cancer Social History Smoking Status: Current every day smoker Tobacco Type: Cigarettes packs per day: 1.5; Cigarettes Per Day: 40; Second Hand Exposure: No; Do You Dip or Chew Tobacco: No; Tobacco Cessation Education Requested by Patient: No Hx Alcohol Use: No Hx Substance Use: No Preferred Language: Malay Communication Ability: Effective Visual Impairment: No Limitations Band Tier Required: No Beliefs That Will Affect Care: None marital status: Single Current Living Situation: Alone current occupational status: retired Feels Safe at Home: Yes Safety Concerns: Feels Safe At This Time caffeine: Yes Dental Care, Regularly: No Physical Activity Frequency: Does not Exercise Seatbelt Use: always Sunscreen Use: No Assistive Devices: Oxygen - Continuous Review of Systems Review of Systems: All systems reviewed & are unremarkable except as noted in HPI & below Physical Exam Constitutional: well developed; + not well nourished and no acute distress Eyes: PERRL, conjunctivae normal, anicteric sclerae Respiratory: + prolonged expiratory phase; no respira tory distress Auscultation: + rhonchi; no crackles and no wheezes Cardiovascular: RRR, no murmur, no edema Gastrointestinal (Abdomen): normal bowel sounds, soft, nontender, no hepatosplenomegaly Musculoskeletal: no cyanosis or clubbing, extremities motor strength 5/5 Skin: no rashes, warm and dry Neurologic: moves all extremities and awake; not confused Psychiatric: A+Ox3, euthymic affect Genitourinary: no CVA tenderness Results & Data Results & Data Vital Signs (Past 12 Hours) Vital Signs Temp Pulse Pulse Resp BP BP Pulse Ox 08/15/23 14:12 73 22 104/65 95 08/15/23 12:44 84 08/15/23 12:32 98 08/15/23 12:32 86 24 112/67 98 08/15/23 11:52 36.8 C 85 20 108/67 95 O2 Del Method O2 Flow Rate 08/15/23 14:12 Nasal Cannula 4 08/15/23 12:44 08/15/23 12:32 Nasal Cannula 4 08/15/23 12:32 Nasal Cannula 4 08/15/23 11:52 Nasal Cannula 4 Laboratory Results Abnormal lab results 08/15/23 Range/Units 12:20 Hct 55.0 H (42.0-52.0) % MCHC 30.5 L (32.0-36.0) g/dL RDW Std Deviation 52.2 H (36.4-46.3) fL RDW Coeff of Christy 15.2 H (11.5-14.5) % Neut # (Auto) 7.16 H (1.40-6.50) K/uL Lymph # (Auto) 0.94 L (1.20-3.40) K/uL VBG pH 7.32 L (7.36-7.41) VBG pCO2 79 H (38-50) mmHg Chloride 96 L (98-107) mmol/L Carbon Dioxide 36 H (21-32) mmol/L BUN/Creatinine Ratio 22.4 H (10-20) Glucose 178 H (70-99(Fasting)) mg/dl Diagnostic Findings CT OF THE HEAD WITHOUT CONTRAST CLINICAL HISTORY: Altered mental status. COMPARISON STUDY: Head CT July 25, 2023. CT DOSE: 625.8 mGy.cm TECHNIQUE: Helical axial images of the head were obtained without IV contrast. Automated exposure control was utilized for the study. A dose lowering technique was utilized adhering to the principles of ALARA. FINDINGS: Artifact from embolization coils adjacent to the right clinoid process is noted. Ventricular system is unremarkable. Basal cisterns are patent. There are no extra-axial collections. No acute intracranial hemorrhage, midline shift or mass effect is present. White matter hypodensities are unchanged. There are no findings to suggest acute dural sinus thrombosis or acute territorial infarct. There are no calvarial fracture. IMPRESSION: No acute intracranial findings. No change in appearance of the brain. SINGLE VIEW CHEST CLINICAL HISTORY: Atypical chest pain FINDINGS: 2 AP, portable, upright chest radiographs are compared to study dated 08/12/2023 and correlated with chest CT dated 07/23/2023. The patient is status post midline sternotomy. The heart is enlarged noting atherosclerotic calcification of the thoracic aorta. The pulmonary vasculature is not congested. Emphysema and chronic interstitial thickening is similar to previous. There is bibasilar scarring/atelectasis. No airspace consolidation or large pleural effusion is identified. No pneumothorax is seen. The skeletal structures are osteopenic. The bony thorax is grossly intact. A benign-appearing lucency is again seen in the left glenoid. IMPRESSION: Cardiomegaly and emphysema with no acute cardiopulmonary abnormality identified. Medications Administered ER Medications Given: None ECG Rate (beats per minute): 89 Rhythm: normal sinus Findings: + other (inverted p waves throughout) Comparison ECG Date: from (August 12, 2023) Change: the following changes noted (inverted p waves are new) Code Status & VTE Plan Code Status Full VTE Prophylaxis Plan VTE Prophylaxis will be ordered: Yes PG Care Time/CCT Total # of Minutes Spent Total Time Spent with Patient: Total time spent is greater than 50% in coordination of care (as documented) at patient's floor/unit and/or counseling patient: Coding Level of Care Code 01314 INT INP/OBS CARE 2/55MIN Diagnoses Encounter for assessment of healthcare decision-making capacity Z02.79 Failure to thrive in adult R62.7 COPD with emphysema J43.9 Acute on chronic respiratory failure with hypoxia and hypercapnia J96.21; J96.22 Tobacco dependence F17.200 Urinary incontinence R32 Depression F32.A DM2 (diabetes mellitus, type 2) E11.9 Hypertension I10
[2023-08-15] MEDS ORDERED: ALBUT/IPRATROP 3MG/0.5MG NEB 3 ML VIAL INH PRN (17:33)
[2023-08-15] MEDS: metFORMIN HCL ER 500 MG TABCR PO SCH (18:27)
[2023-08-15] MEDS: NICOTINE 21 MG/24 HR TDSY TD SCH (18:28)
[2023-08-15 18:51] LABS: Magnesium 1.7 mg/dl (1.7-2.4)
--- NOTE | 2023-08-15 19:35 | Electrocardiogram Report ---
Test Reason : Blood Pressure : / mmHG Vent. Rate : 089 BPM Atrial Rate : 089 BPM P-R Int : 118 ms QRS Dur : 078 ms QT Int : 370 ms P-R-T Axes : 000 089 044 degrees QTc Int : 450 ms Ectopic atrial rhythm vs accelerated junctional rhythm Normal ECG When compared with ECG of 12-AUG-2023 09:47, P-wave axis has changed Confirmed by Jose Webber ([id number]) on 08/15/2023 7:35:13 PM Referred By: Confirmed By:Neymar Webber
[2023-08-15] MEDS: MIRTAZAPINE SOLTAB 15 MG PO SCH (20:43)
[2023-08-15] MEDS: CELECOXIB 100 MG CAP PO SCH (20:43)
[2023-08-15] MEDS: PANTOprazole 40 MG TAB PO SCH (20:43)
--- NOTE | 2023-08-15 22:04 | Emergency Department Note ---
History of Present Illness General Chief complaint: Shortness of Breath/Dyspnea Stated complaint: SOB, REF BY DOC Time Seen by Provider: 08/15/23 12:26 History of Present Illness Provider complaint: Shortness of breath placement 68-year-old male presents emergency department with family for difficulty breathing. Patient states he is very short of breath. Family reports that the patient has a history of pneumonia and COPD. They state that they were sent here by his PCP to be admitted to get placed in a retirement. The daughter is providing much of the history and states that the patient is noncompliant with any of his medications home oxygen therapies or nebulizers. She states that the patient is a danger to himself at home and needs to be admitted for long-term care. Home Medications Medication Instructions Recorded Confirmed Type acetaminophen 500 mg tablet 1,000 mg PO DIRECTED PRN Pain 04/29/19 08/15/23 History (Tylenol Extra Strength) mirtazapine 45 mg tablet 45 mg PO QPM 09/19/20 08/15/23 History atorvastatin 40 mg tablet 40 mg PO QAM #90 tabs 02/27/22 08/15/23 Rx lisinopril 5 mg tablet 5 mg PO QAM #90 tabs 02/27/22 08/15/23 Rx metoprolol succinate 25 mg 25 mg PO QAM #90 tabs 02/27/22 08/15/23 Rx tablet,extended release 24 hr celecoxib 100 mg capsule (Celebrex) 100 mg PO BID 07/23/23 08/15/23 History empagliflozin 10 mg tablet 10 mg PO QAM 07/23/23 08/15/23 History (Jardiance) omeprazole 40 mg capsule,delayed 40 mg PO QPM 07/23/23 08/15/23 History release Oxygen Home [id number] #1 ea 07/30/23 08/15/23 Rx duloxetine 30 mg capsule,delayed 30 mg PO DAILY #30 caps 07/30/23 08/15/23 Rx release (Cymbalta) fluticasone furoate 100 1 inh inhalation DAILY #60 ea 07/30/23 08/15/23 Rx mcg-vilanterol 25 mcg/dose inhalation powder (Breo Ellipta) ipratropium 0.5 mg-albuterol 3 mg 3 ml inhalation Q6H PRN 07/30/23 08/15/23 Rx (2.5 mg base)/3 mL nebulization cough/wheeze/shortness of breath soln #90 mL nebulizer and compressor #1 ea 07/30/23 08/15/23 Rx nicotine 21 mg/24 hr daily 21 mg transdermal QAM #30 patches 07/30/23 08/15/23 Rx transdermal patch (Nicoderm CQ) prednisone 10 mg tablet 10 mg PO DIRECTED #40 tabs 08/13/23 08/15/23 Rx aspirin 81 mg tablet,delayed 81 mg PO QAM 08/15/23 08/15/23 History release metformin 500 mg tablet,extended 1,000 mg PO QPM 08/15/23 08/15/23 History release 24 hr Allergies Allergy/AdvReac Type Severity Reaction Status Date / Time sulfamethoxazole AdvReac Intermediate Dizziness Verified 08/15/23 15:17 trimethoprim AdvReac Intermediate Dizziness Verified 08/15/23 15:17 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 History of coronary artery bypass graft Family History Mother Cancer Sister Cancer of the brain Father Prostate cancer Denies family history of Ovarian cancer Myocardial infarction Breast cancer Colorectal cancer Social History Smoking Status: Current every day smoker Tobacco Type: Cigarettes packs per day: 1.5; Cigarettes Per Day: 40; Second Hand Exposure: No; Do You Dip or Chew Tobacco: No; Tobacco Cessation Education Requested by Patient: No Hx Alcohol Use: No Hx Substance Use: No Preferred Language: Portuguese Communication Ability: Effective Visual Impairment: No Limitations Access Analyst Required: No Beliefs That Will Affect Care: None marital status: Single Current Living Situation: Alone current occupational status: retired Feels Safe at Home: Yes Safety Concerns: Feels Safe At This Time caffeine: Yes Dental Care, Regularly: No Physical Activity Frequency: Does not Exercise Seatbelt Use: always Sunscreen Use: No Assistive Devices: Oxygen - Continuous Physical Exam Vital Signs Vital Signs - 24 hr 08/15/23 11:52 08/15/23 12:32 08/15/23 12:32 Temperature 36.8 C Temperature Source Skin Pulse Rate 85 Pulse Rate [Apical] 86 Respiratory Rate 20 24 Respiratory Effort / Characteristics Non-Labored Non-Labored Spontaneous Respiratory Depth Normal Normal Respiratory Pattern Regular Blood Pressure 108/67 Blood Pressure [Right Arm] 112/67 Blood Pressure Mean 80 Blood Pressure Mean [Right Arm] 82 Pulse Oximetry 95 98 98 Oxygen Delivery Method Nasal Cannula Nasal Cannula Nasal Cannula Oxygen Flow Rate 4 4 4 Sepsis Recent Fever Within 48 Hours No Sepsis New/Unexplained Change in Mental Status No Sepsis Action Taken by Nursing No Action Required 08/15/23 12:44 08/15/23 14:12 Temperature Temperature Source Pulse Rate 84 Pulse Rate [Apical] 73 Respiratory Rate 22 Respiratory Effort / Characteristics Non-Labored Spontaneous Respiratory Depth Normal Respiratory Pattern Regular Blood Pressure Blood Pressure [Right Arm] 104/65 Blood Pressure Mean Blood Pressure Mean [Right Arm] 78 Pulse Oximetry 95 Oxygen Delivery Method Nasal Cannula Oxygen Flow Rate 4 Sepsis Recent Fever Within 48 Hours Sepsis New/Unexplained Change in Mental Status Sepsis Action Taken by Nursing Physical Exam HENT: Exam performed. - Head: Normocephalic and atraumatic. EYES: Conjunctivae and EOM are normal. Right eye exhibits no discharge. Left eye exhibits no discharge. No scleral icterus. NECK: Normal range of motion. Neck supple. No JVD present. CV: Normal rate, regular rhythm, normal heart sounds and intact distal pulses. There is no peripheral edema. Palpable radial pulses bue. PULM/CHEST: Scant expiratory wheezing. ABD: The abdomen is soft. There is no tenderness. Course Course 1226: The patient was evaluated in room A11A. A complete history and physical exam was performed Administered Medications Celecoxib (Celecoxib 100 Mg Cap) 100 mg PO BID ANALIA Stop: 09/14/23 20:59 Last Admin: 08/15/23 20:43 Dose: 100 mg Documented By: LO Metformin HCl (Metformin Hcl Er 500 Mg Tabcr) 1,000 mg PO QDD ANALIA Stop: 09/14/23 17:44 Last Admin: 08/15/23 18:27 Dose: 1,000 mg Documented By: ROSARIO Mirtazapine (Mirtazapine Soltab 15 Mg) 45 mg PO QPM ANALIA Stop: 09/14/23 20:59 Last Admin: 08/15/23 20:43 Dose: 45 mg Documented By: LO Nicotine (Nicotine 21 Mg/24 Hr Tdsy) 1 patch TD QAM ANALIA Stop: 09/14/23 17:44 Last Admin: 08/15/23 18:28 Dose: 1 patch Documented By: ROSARIO Pantoprazole Sodium (Pantoprazole 40 Mg Tab) 40 mg PO QPM ANALIA Stop: 09/14/23 20:59 Last Admin: 08/15/23 20:43 Dose: 40 mg Documented By: LO Medical Decision Making Laboratory Data Attestation: I reviewed the patient's lab results. 08/15/23 12:20 08/15/23 12:20 Lab Results 08/15/23 08/15/23 Range/Units 12:20 12:42 WBC 8.39 (4.8-10.8) K/ul RBC 5.81 (4.70-6.10) M/uL Hgb 16.8 (14.0-18.0) g/dl Hct 55.0 H (42.0-52.0) % MCV 94.7 (80.0-100.0) fL MCH 28.9 (25.0-34.0) pg MCHC 30.5 L (32.0-36.0) g/dL RDW Std Deviation 52.2 H (36.4-46.3) fL RDW Coeff of Christy 15.2 H (11.5-14.5) % Plt Count 210 (130-400) K/uL MPV 9.5 (9.4-12.4) fL Immature Gran % (Auto) 0.5 % Neut % (Auto) 85.4 % Lymph % (Auto) 11.2 % [place] % (Auto) 2.5 % Eos % (Auto) 0.2 % Baso % (Auto) 0.2 % Neut # (Auto) 7.16 H (1.40-6.50) K/uL Lymph # (Auto) 0.94 L (1.20-3.40) K/uL [place] # (Auto) 0.21 (0.11-0.59) K/uL Eos # (Auto) 0.02 (0.00-0.50) K/uL Baso # (Auto) 0.02 (0.00-0.20) K/uL Immature Gran # (Auto) 0.04 (0.01-0.20) K/uL PT 10.8 (9.0-12.0) Seconds INR 1.0 (0.9-1.1) APTT 26 (21-31) Seconds PTT Ratio 0.9 VBG pH 7.32 L (7.36-7.41) VBG pCO2 79 H (38-50) mmHg VBG pO2 35 mmHg VBG HCO3 41 mmol/L VBG O2 Saturation < 60.0 % VBG Base Excess 11.1 mEq/L Sodium 138 (136-145) mmol/L Potassium 4.3 (3.5-5.1) mmol/L Chloride 96 L (98-107) mmol/L Carbon Dioxide 36 H (21-32) mmol/L Anion Gap 6 (3-11) BUN 17 (6-23) mg/dl Creatinine 0.76 (0.6-1.4) mg/dl Est Cr Clr Drug Dosing Not Reportable Est GFR ( Amer) 107.9 ml/min Est GFR (Non-Af Amer) 93.1 ml/min BUN/Creatinine Ratio 22.4 H (10-20) Glucose 178 H (70-99(Fasting)) mg/dl Calcium 9.9 (8.6-10.3) mg/dl Magnesium 1.7 (1.7-2.4) mg/dl Total Bilirubin 0.6 (0.2-1.0) mg/dl AST 29 (13-39) U/L ALT 32 (7-52) U/L Alkaline Phosphatase 73 (34-104) U/L Troponin I High Sens 8.2 (0-20) pg/ml Total Protein 7.7 (6.0-8.3) gm/dl Albumin 4.2 (3.4-5.0) gm/dl Globulin 3.5 (2.5-4.0) gm/dl Albumin/Globulin Ratio 1.2 (0.9-2) Ethyl Alcohol mg/dL < 10.0 (<10.0) mg/dl Imaging Data Attestation: I personally reviewed and interpreted this imaging study as follows: My Impression: Chest x-ray negative. Airway clear. No pneumothorax. No consolidation. No cardiomegaly or cephalization.. No free air under the diaphragm. No fractures of the skeletal structures. Radiologist's Impression: Chest X-Ray 08/15/23 11:58 SINGLE VIEW CHEST CLINICAL HISTORY: Atypical chest pain FINDINGS: 2 AP, portable, upright chest radiographs are compared to study dated 08/12/2023 and correlated with chest CT dated 07/23/2023. The patient is status post midline sternotomy. The heart is enlarged noting atherosclerotic calcification of the thoracic aorta. The pulmonary vasculature is not congested. Emphysema and chronic interstitial thickening is similar to previous. There is bibasilar scarring/atelectasis. No airspace consolidation or large pleural effusion is identified. No pneumothorax is seen. The skeletal structures are osteopenic. The bony thorax is grossly intact. A benign-appearing lucency is again seen in the left glenoid. IMPRESSION: Cardiomegaly and emphysema with no acute cardiopulmonary abnormality identified. ACT 112: Negative or not required by law. Electronically signed by: Oren Perez M.D. 08/15/2023 1:[address] 08/15/23 12:35 CT OF THE HEAD WITHOUT CONTRAST CLINICAL HISTORY: Altered mental status. COMPARISON STUDY: Head CT July 25, 2023. CT DOSE: 625.8 mGy.cm TECHNIQUE: Helical axial images of the head were obtained without IV contrast. Automated exposure control was utilized for the study. A dose lowering technique was utilized adhering to the principles of ALARA. FINDINGS: Artifact from embolization coils adjacent to the right clinoid process is noted. Ventricular system is unremarkable. Basal cisterns are patent. There are no extra-axial collections. No acute intracranial hemorrhage, midline shift or mass effect is present. White matter hypodensities are unchanged. There are no findings to suggest acute dural sinus thrombosis or acute territorial infarct. There are no calvarial fracture. IMPRESSION: No acute intracranial findings. No change in appearance of the brain. ACT 112: Negative or not required by law. Electronically signed by: Tony Marin M.D. 08/15/2023 2:12 PM ECG Data Attestation: I personally reviewed and interpreted this ECG as follows: Rate (beats per minute): 89 Rhythm: + normal sinus ECG Intervals/blocks: + Normal CA and + Normal QT-c ECG ST segments: + Normal ST segments Additional Comments: QRS 78 MDM Narrative Cardiac monitoring: An order was placed for continuous cardiac monitoring. The monitor shows a rate of 90 with sinus rhythm interpreted by me Vital signs stable. Labs and imaging within normal limits. [facility] Impression & Plan Acute exacerbation of chronic obstructive airways disease Discharge Plan Visit Data Chief Complaint: Shortness of Breath/Dyspnea Stated Complaint: SOB, REF BY DOC ED Provider: Jose De Jesus Steiner Discharge Problem: Acute exacerbation of chronic obstructive airways disease Patient Disposition: Admitted As Inpatient Discharge Instructions Interventions: ED Discharge Assessment Last Done: 08/15/23 17:30
[2023-08-15] MEDS: ENOXAPARIN INJ 40 MG/0.4 ML SYR SQ SCH (22:14)
[2023-08-16] MEDS ORDERED: PHARMACY GLYCEMIC MGMT CONSULT PRN (06:56)
[2023-08-16] MEDS ORDERED: GLUCOSE 40% GEL 15 GM TUBE PO PRN (08:45)
[2023-08-16] MEDS ORDERED: CARBOHYDRATES FOR HYPOGLYCEMIA PO PRN (08:45)
[2023-08-16] MEDS ORDERED: GLUCAGON FOR INJ 1 MG VIAL IM PRN (08:45)
[2023-08-16] MEDS ORDERED: DEXTROSE 50% 50 ML SYRINGE IV PRN (08:45)
[2023-08-16] MEDS ORDERED: GLUCOSE 10 TAB/TUBE PO PRN (08:45)
[2023-08-16] MEDS: lisinopril 5 MG TAB PO SCH (08:58)
[2023-08-16] MEDS: ATORVASTATIN 40 MG TAB PO SCH (08:58)
[2023-08-16] MEDS: ASPIRIN 81 MG ECTAB PO SCH (08:58)
[2023-08-16] MEDS: DULoxetine HCL 30 MG CAP PO SCH (08:58)
[2023-08-16] MEDS: predniSONE 10 MG TABLET PO SCH (08:59)
[2023-08-16] MEDS: FLUTICASONE/VILANTEROL 100/25MCG 14 PUFFS/INHALER INH SCH (09:00)
[2023-08-16] MEDS ORDERED: EMPAGLIFLOZIN 10 MG TAB PO SCH (09:00)
[2023-08-16] MEDS: LANTUS PER UNIT CHARGE SC SCH ×2 (09:01→20:25)
[2023-08-16] MEDS: METOPROLOL SUCC 25MG EXT REL TAB PO SCH (09:39)
--- NOTE | 2023-08-16 10:18 | Pharmacy Report ---
Pharmacy Glycemic Short Note 2 - Date of Service August 16, 2023 - Glycemic Short BSG Results (Last 24 hours): 08/15/23 08/15/23 12:20 20:17 Glucose 178 H POC Glucose 128 H OUTPATIENT ANTIDIABETIC REGIMEN: * Metformin ER 1 gm PO daily with dinner * Jardiance 10 mg PO QAM HbA1c: 7.3% ASSESSMENT: * 68 y/o M admitted for SOB, failure to thrive, non-compliance with meds and oxygen. Patient was admitted here only 4 days ago and discharged. History of COPD, diabetes. Awaiting placement to shelter care facility. * Patient is started on Prednisone 10 mg QID tapering down every 2 or 3 days. * He had been ordered Metformin home dose yesterday but will place this on hold for now and initiate basal/bolus insulin same as last admission. * Basal 10 units given this morning * Novolog parameters based on stress between 2 and 3. PLAN FOR INPATIENT GLYCEMIC CONTROL: * Hold outpatient oral diabetes medications * Basal insulin * Lantus 10 units SQ Qam * Lantus 0/5/10 units scale SQ HS based on BSG * Bolus insulin * NovoLog per scale ACHS or Q6hrs while NPO * Goal Range: Low 110 mg/dL - High 140 mg/dL * Correction Factor: 20 mg/dL/unit * Nutritional / Prandial insulin per carb ratio of 1 unit per 7 grams CHO consumed
[2023-08-16] MEDS: INSULIN ASPART PER UNIT CHARGE SC SCH (12:34)
--- NOTE | 2023-08-16 21:53 | Hospitalist Progress Note ---
Date of Service August 16, 2023 Assessment & Plan (1) Encounter for assessment of healthcare decision-making capacity: Plan: Patient currently lacks insight into his medical decision making as evidence by lack of knowledge to why he is here today. "legally " from his per his daughter and not listed as contact. Daughter "Mamta" is only child wishes him to be admitted for placement at this time as not safe to be at home as evidenced by history in H&P. Consult ethics as if not and without POA paperwork hi should be making his medical decisions. He is orientated x3 in addition but lacks medical decisional capacity on admission but this should be continually reassessed. On 08/15 Patient now agreeable to rehab. Patient is awake alert oriented. Patient reports his main s=issue is his feeling on that he needs to contiue to go and has accidents. Will obtain abladder scan. Update: this was negative only showed 3 mg. (2) Failure to thrive in adult: Plan: Not able to cope at home. x2 readmissions in July as unable to cope at home. Planning on placement which patient is agreeable to at this time. PT/OT. (3) COPD with emphysema: Plan: Continue his routine inhalers or hospital formulary equivalent Duonebs PRN No acute exacerbation suspected Continue prednisone taper from last admission (4) Acute on chronic respiratory failure with hypoxia and hypercapnia: Plan: Appears to have some acute decompensation as evidence by non-compensated acidosis. Suspect not using his BiPAP HS, will order to use here. 2 step [07/30/23] 3LPM O2 at rest and 4LPM O2 on exertion (5) Tobacco dependence: Plan: Continues to smoke per patient with continuous oxygen use. Nicotine patch ordered. (6) Urinary incontinence: Plan: Inability to get to the toilet in time (7) Depression: Plan: Continue duloxetine and mirtazapine (8) DM2 (diabetes mellitus, type 2): Plan: HbA1C 7. in June Continue metformin and Jardiance (9) Hypertension: Plan: Continue lisinopril and metoprolol Plan VTE Prophylaxis - Lovenox 40mg SQ daily Diet - regular Admission and Anticipated Discharge Date Admission Date: August 15, 2023 Subjective Patient is agreeable to rehab. Patient reports having feelings of fullness. Review of Systems Review of Systems: All systems reviewed & are unremarkable except as noted in HPI & below Physical Exam Physical Exam: Constitutional: well developed; + not well nourished and no acute distress Eyes: PERRL, conjunctivae normal, anicteric sclerae Respiratory: no respiratory distress Cardiovascular: RRR, no murmur, no edema Gastrointestinal (Abdomen): normal bowel sounds, soft, nontender, no hepatosplenomegaly Musculoskeletal: no cyanosis or clubbing, extremities motor strength 5/5 Skin: no rashes, warm and dry Neurologic: moves all extremities and awake; not confused Psychiatric: A+Ox3, euthymic affect Genitourinary: no CVA tenderness Results & Data Results & Data Vital Signs (Past 12 Hours) Vital Signs Temp Pulse Resp BP Pulse Ox O2 Del Method O2 Flow Rate 08/16/23 21:16 Nasal Cannula 4 08/16/23 19:58 36.5 C 69 18 112/71 96 Room Air 08/16/23 15:21 36.8 C 75 20 113/64 94 Nasal Cannula 4 PG Care Time/CCT Total # of Minutes Spent Total Time Spent with Patient: Total time spent is greater than 50% in coordination of care (as documented) at patient's floor/unit and/or counseling patient: Coding Level of Care Code 58170 SUB INP/OBS CARE 2/35MIN Diagnoses Encounter for assessment of healthcare decision-making capacity Z02.79 Failure to thrive in adult R62.7 COPD with emphysema J43.9 Acute on chronic respiratory failure with hypoxia and hypercapnia J96.21; J96.22 Tobacco dependence F17.200 Urinary incontinence R32 Depression F32.A DM2 (diabetes mellitus, type 2) E11.9 Hypertension I10
[2023-08-17 06:55] LABS: Hematocrit (blood only) 48.6 % (42.0-52.0); Hemoglobin 15.3 g/dl (14.0-18.0); Mean Corpuscular Hgb Conc 31.5 g/dL (32.0-36.0); Mean Platelet Volume 9.6 fL (9.4-12.4); Platelet Count 174 K/uL (130-400); RDW Coefficient of Variation 14.5 % (11.5-14.5); RDW Standard Deviation 48.9 fL (36.4-46.3); Red Blood Count 5.28 M/uL (4.70-6.10); White Blood Count 7.66 K/ul (4.8-10.8)
[2023-08-17 07:18] LABS: BUN Creatinine Ratio 22.5 (10-20); Calcium 9.4 mg/dl (8.6-10.3); Creatinine Clr Calc Pharmacy 118.9 ml/min; Est GFR (Non-African American) 95.7 ml/min; Potassium 4.9 mmol/L (3.5-5.1)
--- NOTE | 2023-08-17 11:24 | Pharmacy Report ---
Pharmacy Glycemic Short Note 2 - Date of Service August 17, 2023 - Glycemic Short BSG Results (Last 24 hours): 08/16/23 08/16/23 08/16/23 11:45 16:43 20:17 Glucose POC Glucose 129 H 175 H 143 H 08/17/23 08/17/23 06:21 07:30 Glucose 143 H POC Glucose 119 H OUTPATIENT ANTIDIABETIC REGIMEN: * Metformin ER 1 gm PO daily with dinner * Jardiance 10 mg PO QAM HbA1c: 7.3% ASSESSMENT: 08/16: * Patient received 15 units of basal yesterday and 22 units of bolus. BSGs were 129-175-143 mg/dl showing adequate control on steroids. * Prednisone dose remains the same today. Continue with same basal and bolus parameters. 08/15: * 68 y/o M admitted for SOB, failure to thrive, non-compliance with meds and oxygen. Patient was admitted here only 4 days ago and discharged. History of COPD, diabetes. Awaiting placement to ex[facility] supervisor care facility. * Patient is started on Prednisone 10 mg QID tapering down every 2 or 3 days. * He had been ordered Metformin home dose yesterday but will place this on hold for now and initiate basal/bolus insulin same as last admission. * Basal 10 units given this morning * Novolog parameters based on stress between 2 and 3. PLAN FOR INPATIENT GLYCEMIC CONTROL: * Hold outpatient oral diabetes medications * Basal insulin * Lantus 10 units SQ Qam * Lantus 0/5/10 units scale SQ HS based on BSG * Bolus insulin * NovoLog per scale ACHS or Q6hrs while NPO * Goal Range: Low 110 mg/dL - High 140 mg/dL * Correction Factor: 20 mg/dL/unit * Nutritional / Prandial insulin per carb ratio of 1 unit per 7 grams CHO consumed
--- NOTE | 2023-08-17 13:48 | Urology Consultation ---
Date of Consultation August 17, 2023 Assessment & Plan (1) Urinary incontinence: Plan Urology consulted for urgency incontinence. Discussed symptoms of urgency, frequency, and incontinence. We discussed potential etiologies including BPH, OAB, or other. Discussed impact on patient's quality of life and bother related to these symptoms. Reviewed possible pharmaceutical options including alpha maria esther, anticholinergic, or beta 3 agonist. Also discussed possible further outpatient work-up. Conservative measure with double voiding, timed voiding, and avoidance of bladder irritants were discussed. Pt denies UTI symptoms. Prior PVR per nursing was low -3ml. Patient declines trial of a medication or further outpatient workup at this time. He prefers to manage conservatively and will work on timed/double voiding. We can arrange a follow-up as an outpatient for further discussion if he prefers. Urology will sign-off. Please call with any further questions or concerns. History of Present Illness Attending Physician: Krish Ortiz History of Present Illness 68 year old male who was admitted to medicine service with adult failure to thrive/encounter for assessment of healthcare decision-making capacity. Urology was asked to evaluate patient for urinary urgency. Chart review- Afebrile and hemodynamically stable. On O2 via NC. Labs (08/17/2023): WBC 7.66, hemoglobin 15.3, creatinine 0.71. Patient reports urinary urgency with occasional incontinence. No hematuria or dysuria Daytime frequency every 1-2 hours Nocturia 0 Stream good No need to push/strain Feels he is emptying well. Denies prior hx. Denies history of bladder or prostate cancer. Has never seen a urologist. Per chart review, last PSA was 0.711 in 06/2020. Reports a Family hx of prostate cancer - Father at 47 Denies additional concerns today. Allergies Allergy/AdvReac Type Severity Reaction Status Date / Time sulfamethoxazole AdvReac Intermediate Dizziness Verified 08/15/23 15:17 trimethoprim AdvReac Intermediate Dizziness Verified 08/15/23 15:17 Home Medications Medication Instructions Recorded Confirmed Type acetaminophen 500 mg tablet 1,000 mg PO DIRECTED PRN Pain 04/29/19 08/15/23 History (Tylenol Extra Strength) mirtazapine 45 mg tablet 45 mg PO QPM 09/19/20 08/15/23 History atorvastatin 40 mg tablet 40 mg PO QAM #90 tabs 02/27/22 08/15/23 Rx lisinopril 5 mg tablet 5 mg PO QAM #90 tabs 02/27/22 08/15/23 Rx metoprolol succinate 25 mg 25 mg PO QAM #90 tabs 02/27/22 08/15/23 Rx tablet,extended release 24 hr celecoxib 100 mg capsule (Celebrex) 100 mg PO BID 07/23/23 08/15/23 History empagliflozin 10 mg tablet 10 mg PO QAM 07/23/23 08/15/23 History (Jardiance) omeprazole 40 mg capsule,delayed 40 mg PO QPM 07/23/23 08/15/23 History release Oxygen Home [id number] #1 ea 07/30/23 08/15/23 Rx duloxetine 30 mg capsule,delayed 30 mg PO DAILY #30 caps 07/30/23 08/15/23 Rx release (Cymbalta) fluticasone furoate 100 1 inh inhalation DAILY #60 ea 07/30/23 08/15/23 Rx mcg-vilanterol 25 mcg/dose inhalation powder (Breo Ellipta) ipratropium 0.5 mg-albuterol 3 mg 3 ml inhalation Q6H PRN 07/30/23 08/15/23 Rx (2.5 mg base)/3 mL nebulization cough/wheeze/shortness of breath soln #90 mL nebulizer and compressor #1 ea 07/30/23 08/15/23 Rx nicotine 21 mg/24 hr daily 21 mg transdermal QAM #30 patches 07/30/23 08/15/23 Rx transdermal patch (Nicoderm CQ) prednisone 10 mg tablet 10 mg PO DIRECTED #40 tabs 08/13/23 08/15/23 Rx aspirin 81 mg tablet,delayed 81 mg PO QAM 08/15/23 08/15/23 History release metformin 500 mg tablet,extended 1,000 mg PO QPM 08/15/23 08/15/23 History release 24 hr Patient History Medical History DM2 (diabetes mellitus, type 2) diagnosed 07/01/2020 with A1C of 8.0 Squamous cell carcinoma Postoperative atrial fibrillation MCI (mild cognitive impairment) with memory loss Insomnia Depression due to physical illness Cerebral arterial aneurysm CAD (coronary artery disease) Anxiety Surgical History History of tonsillectomy History of intracranial aneurysm 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 History of coronary artery bypass graft Family History Mother Cancer Sister Cancer of the brain Father Prostate cancer Denies family history of Ovarian cancer Myocardial infarction Breast cancer Colorectal cancer Social History Smoking Status: Current every day smoker Tobacco Type: Cigarettes packs per day: 1.5; Cigarettes Per Day: 40; Second Hand Exposure: No; Do You Dip or Chew Tobacco: No; Tobacco Cessation Education Requested by Patient: No Hx Alcohol Use: No Hx Substance Use: No Preferred Language: Macedonian Communication Ability: Effective Visual Impairment: No Limitations Artificial Pearl Maker Required: No Beliefs That Will Affect Care: None marital status: Single Current Living Situation: Alone current occupational status: retired Feels Safe at Home: Yes Safety Concerns: Feels Safe At This Time caffeine: Yes Dental Care, Regularly: No Physical Activity Frequency: Does not Exercise Seatbelt Use: always Sunscreen Use: No Assistive Devices: Oxygen - Continuous and Other Review of Systems Review of Systems: All systems reviewed & are unremarkable except as noted in HPI & below Physical Exam Constitutional: cooperative and comfortable; no acute distress Neck: normal visual inspection Respiratory: no respiratory distress and no labored breathing Musculoskeletal: Head/Neck/Chest: normocephalic Neurologic: moves all extremities and awake Psychiatric: Orientation: alert and oriented x 3 Results & Data Vital Signs (Past 12 Hours) Vital Signs Temp Pulse Resp BP Pulse Ox O2 Del Method O2 Flow Rate 08/17/23 08:00 Nasal Cannula 4 08/17/23 07:05 36.4 C L 58 L 18 125/70 98 Nasal Cannula 4 PG Care Time/CCT Total # of Minutes Spent Total Time Spent with Patient: Total time spent is greater than 50% in coordination of care (as documented) at patient's floor/unit and/or counseling patient: Coding Level of Care Code 09583 INT INP/OBS CARE 40MIN Diagnoses Urinary incontinence R32
--- NOTE | 2023-08-17 23:06 | Hospitalist Progress Note ---
Date of Service August 17, 2023 Assessment & Plan (1) Encounter for assessment of healthcare decision-making capacity: Plan: Patient currently lacks insight into his medical decision making as evidence by lack of knowledge to why he is here today. "legally " from his per his daughter and not listed as contact. Daughter "Mamta" is only child wishes him to be admitted for placement at this time as not safe to be at home as evidenced by history in H&P. Consult ethics as if not and without POA paperwork hi should be making his medical decisions. He is orientated x3 in addition but lacks medical decisional capacity on admission but this should be continually reassessed. On 08/15 Patient now agreeable to rehab. Patient is awake alert oriented. Patient reports his main s=issue is his feeling on that he needs to contiue to go and has accidents. Will obtain abladder scan. Update: this was negative only showed 3 ml Consulted Urology: patient refused medical management. (2) Failure to thrive in adult: Plan: Not able to cope at home. x2 readmissions in July as unable to cope at home. Planning on placement which patient is agreeable to at this time. PT/OT. (3) COPD with emphysema: Plan: Continue his routine inhalers or hospital formulary equivalent Duonebs PRN No acute exacerbation suspected Continue prednisone taper from last admission (4) Acute on chronic respiratory failure with hypoxia and hypercapnia: Plan: Appears to have some acute decompensation as evidence by non-compensated acidosis. Suspect not using his BiPAP HS, will order to use here. 2 step [07/30/23] 3LPM O2 at rest and 4LPM O2 on exertion (5) Tobacco dependence: Plan: Continues to smoke per patient with continuous oxygen use. Nicotine patch ordered. (6) Urinary incontinence: Plan: Inability to get to the toilet in time (7) Depression: Plan: Continue duloxetine and mirtazapine (8) DM2 (diabetes mellitus, type 2): Plan: HbA1C 7. in June Continue metformin and Jardiance (9) Hypertension: Plan: Continue lisinopril and metoprolol Plan VTE Prophylaxis - Lovenox 40mg SQ daily Diet - regular Admission and Anticipated Discharge Date Admission Date: August 16, 2023 Subjective Patient reports no new symptoms. Review of Systems Review of Systems: All systems reviewed & are unremarkable except as noted in HPI & below Physical Exam Physical Exam: Constitutional: well developed; + not well nourished and no acute distress Eyes: PERRL, conjunctivae normal, anicteric sclerae Respiratory: no respiratory distress Cardiovascular: RRR, no murmur, no edema Gastrointestinal (Abdomen): normal bowel sounds, soft, nontender, no hepatosplenomegaly Musculoskeletal: no cyanosis or clubbing, extremities motor strength 5/5 Skin: no rashes, warm and dry Neurologic: moves all extremities and awake; not confused Psychiatric: A+Ox3, euthymic affect Genitourinary: no CVA tenderness Results & Data Results & Data Vital Signs (Past 12 Hours) Vital Signs Temp Pulse Resp BP Pulse Ox O2 Del Method O2 Flow Rate 08/17/23 19:30 Nasal Cannula 4 08/17/23 14:33 35.7 C L 75 18 148/73 H 95 Nasal Cannula 4 08/17/23 14:32 96 PG Care Time/CCT Total # of Minutes Spent Total Time Spent with Patient: Total time spent is greater than 50% in coordination of care (as documented) at patient's floor/unit and/or counseling patient: Coding Level of Care Code 77994 SUB INP/OBS CARE 2/35MIN Diagnoses Encounter for assessment of healthcare decision-making capacity Z02.79 Failure to thrive in adult R62.7 COPD with emphysema J43.9 Acute on chronic respiratory failure with hypoxia and hypercapnia J96.21; J96.22 Tobacco dependence F17.200 Urinary incontinence R32 Depression F32.A DM2 (diabetes mellitus, type 2) E11.9 Hypertension I10
[2023-08-18 06:36] LABS: Hematocrit (blood only) 45.2 % (42.0-52.0); Hemoglobin 14.3 g/dl (14.0-18.0); Mean Corpuscular Hemoglobin 28.8 pg (25.0-34.0); Mean Corpuscular Hgb Conc 31.6 g/dL (32.0-36.0); Mean Corpuscular Volume 91.1 fL (80.0-100.0); Mean Platelet Volume 9.6 fL (9.4-12.4); Platelet Count 176 K/uL (130-400); RDW Coefficient of Variation 14.4 % (11.5-14.5); RDW Standard Deviation 48.1 fL (36.4-46.3); Red Blood Count 4.96 M/uL (4.70-6.10)
[2023-08-18 06:42] LABS: BUN Creatinine Ratio 30.3 (10-20); Calcium 8.9 mg/dl (8.6-10.3); Creatinine Clr Calc Pharmacy 111.1 ml/min; Est GFR (African American) 107.9 ml/min; Est GFR (Non-African American) 93.1 ml/min; Potassium 4.5 mmol/L (3.5-5.1)
--- NOTE | 2023-08-18 21:08 | Hospitalist Progress Note ---
Date of Service August 18, 2023 Assessment & Plan (1) Encounter for assessment of healthcare decision-making capacity: Plan: Patient currently lacks insight into his medical decision making as evidence by lack of knowledge to why he is here today. "legally " from his per his daughter and not listed as contact. Daughter "Mamta" is only child wishes him to be admitted for placement at this time as not safe to be at home as evidenced by history in H&P. Consult ethics as if not and without POA paperwork hi should be making his medical decisions. He is orientated x3 in addition but lacks medical decisional capacity on admission but this should be continually reassessed. On 08/15 Patient now agreeable to rehab. Patient is awake alert oriented. Patient reports his main issue is his feeling on that he needs to contiue to go and has accidents. Will obtain abladder scan. Update: this was negative only showed 3 ml On 08/16 Consulted Urology: patient refused medical management. Patient asking to stop using BIPAP machine. will continue for now (2) Failure to thrive in adult: Plan: Not able to cope at home. x2 readmissions in July as unable to cope at home. Planning on placement which patient is agreeable to at this time. PT/OT. (3) COPD with emphysema: Plan: Continue his routine inhalers or hospital formulary equivalent Duonebs PRN No acute exacerbation suspected Continue prednisone taper from last admission (4) Acute on chronic respiratory failure with hypoxia and hypercapnia: Plan: Appears to have some acute decompensation as evidence by non-compensated acidosis. Suspect not using his BiPAP HS, will order to use here. 2 step [07/30/23] 3LPM O2 at rest and 4LPM O2 on exertion (5) Tobacco dependence: Plan: Continues to smoke per patient with continuous oxygen use. Nicotine patch ordered. (6) Urinary incontinence: Plan: Inability to get to the toilet in time (7) Depression: Plan: Continue duloxetine and mirtazapine (8) DM2 (diabetes mellitus, type 2): Plan: HbA1C 7. in June Continue metformin and Jardiance (9) Hypertension: Plan: Continue lisinopril and metoprolol Plan VTE Prophylaxis - Lovenox 40mg SQ daily Diet - regular Admission and Anticipated Discharge Date Admission Date: August 16, 2023 Subjective 68 yo male reports no new symptoms. Review of Systems Review of Systems: All systems reviewed & are unremarkable except as noted in HPI & below Physical Exam Physical Exam: Constitutional: well developed; + not well nourished and no acute distress Eyes: PERRL, conjunctivae normal, anicteric sclerae Respiratory: no respiratory distress Cardiovascular: RRR, no murmur, no edema Gastrointestinal (Abdomen): normal bowel sounds, soft, nontender, no hepatosplenomegaly Musculoskeletal: no cyanosis or clubbing, extremities motor strength 5/5 Skin: no rashes, warm and dry Neurologic: moves all extremities and awake; not confused Psychiatric: A+Ox3, euthymic affect Genitourinary: no CVA tenderness Results & Data Results & Data Vital Signs (Past 12 Hours) Vital Signs Temp Pulse Resp BP Pulse Ox O2 Del Method O2 Flow Rate 08/18/23 16:00 Nasal Cannula 4 08/18/23 15:19 36.4 C L 88 20 151/67 H 95 Nasal Cannula 4 PG Care Time/CCT Total # of Minutes Spent Total Time Spent with Patient: Total time spent is greater than 50% in coordination of care (as documented) at patient's floor/unit and/or counseling patient: Coding Level of Care Code 52429 SUB INP/OBS CARE 2/35MIN Diagnoses Encounter for assessment of healthcare decision-making capacity Z02.79 Failure to thrive in adult R62.7 COPD with emphysema J43.9 Acute on chronic respiratory failure with hypoxia and hypercapnia J96.21; J96.22 Tobacco dependence F17.200 Urinary incontinence R32 Depression F32.A DM2 (diabetes mellitus, type 2) E11.9 Hypertension I10
[2023-08-19] MEDS: predniSONE 10 MG TABLET PO SCH (20:22)
--- NOTE | 2023-08-19 20:33 | Hospitalist Progress Note ---
Date of Service August 19, 2023 Assessment & Plan (1) Encounter for assessment of healthcare decision-making capacity: Plan: Patient currently lacks insight into his medical decision making as evidence by lack of knowledge to why he is here today. "legally " from his per his daughter and not listed as contact. Daughter "Mamta" is only child wishes him to be admitted for placement at this time as not safe to be at home as evidenced by history in H&P. Consult ethics as if not and without POA paperwork hi should be making his medical decisions. He is orientated x3 in addition but lacks medical decisional capacity on admission but this should be continually reassessed. On 08/15 Patient now agreeable to rehab. Patient is awake alert oriented. Patient reports his main issue is his feeling on that he needs to contiue to go and has accidents. Will obtain abladder scan. Update: this was negative only showed 3 ml On 08/16 Consulted Urology: patient refused medical management. Patient asking to stop using BIPAP machine. will continue for now (2) Failure to thrive in adult: Plan: Not able to cope at home. x2 readmissions in July as unable to cope at home. Planning on placement which patient is agreeable to at this time. PT/OT. (3) COPD with emphysema: Plan: Continue his routine inhalers or hospital formulary equivalent Duonebs PRN No acute exacerbation suspected Continue prednisone taper from last admission (4) Acute on chronic respiratory failure with hypoxia and hypercapnia: Plan: Appears to have some acute decompensation as evidence by non-compensated acidosis. Suspect not using his BiPAP HS, will order to use here. 2 step [07/30/23] 3LPM O2 at rest and 4LPM O2 on exertion (5) Tobacco dependence: Plan: Continues to smoke per patient with continuous oxygen use. Nicotine patch ordered. (6) Urinary incontinence: Plan: Inability to get to the toilet in time (7) Depression: Plan: Continue duloxetine and mirtazapine (8) DM2 (diabetes mellitus, type 2): Plan: HbA1C 7. in June Continue metformin and Jardiance (9) Hypertension: Plan: Continue lisinopril and metoprolol Plan VTE Prophylaxis - Lovenox 40mg SQ daily Diet - regular Admission and Anticipated Discharge Date Admission Date: August 16, 2023 Subjective Patient resting comfortably. Review of Systems Review of Systems: All systems reviewed & are unremarkable except as noted in HPI & below Physical Exam Physical Exam: Constitutional: well developed; + not well nourished and no acute distress Eyes: PERRL, conjunctivae normal, anicteric sclerae Respiratory: no respiratory distress Cardiovascular: RRR, no murmur, no edema Gastrointestinal (Abdomen): normal bowel sounds, soft, nontender, no hepatosplenomegaly Musculoskeletal: no cyanosis or clubbing, extremities motor strength 5/5 Skin: no rashes, warm and dry Neurologic: moves all extremities and awake; not confused Psychiatric: A+Ox3, euthymic affect Genitourinary: no CVA tenderness Results & Data Results & Data Vital Signs (Past 12 Hours) Vital Signs Temp Pulse Resp BP Pulse Ox O2 Del Method O2 Flow Rate 08/19/23 19:51 36.4 C L 84 16 161/91 H 95 Nasal Cannula 4 08/19/23 14:57 36.5 C 88 22 172/78 H 95 Nasal Cannula 4 08/19/23 08:40 Nasal Cannula 4 PG Care Time/CCT Total # of Minutes Spent Total Time Spent with Patient: Total time spent is greater than 50% in coordination of care (as documented) at patient's floor/unit and/or counseling patient: Coding Level of Care Code 19786 SUB INP/OBS CARE 05/24MIN Diagnoses Encounter for assessment of healthcare decision-making capacity Z02.79 Failure to thrive in adult R62.7 COPD with emphysema J43.9 Acute on chronic respiratory failure with hypoxia and hypercapnia J96.21; J96.22 Tobacco dependence F17.200 Urinary incontinence R32 Depression F32.A DM2 (diabetes mellitus, type 2) E11.9 Hypertension I10
[2023-08-20] MEDS: LANTUS PER UNIT CHARGE SC SCH (08:26)
--- NOTE | 2023-08-20 14:05 | Pharmacy Report ---
Pharmacy Glycemic Short Note 2 - Date of Service August 20, 2023 - Glycemic Short BSG Results (Last 24 hours): 08/19/23 08/19/23 08/20/23 16:59 20:19 07:58 POC Glucose 206 H 204 H 197 H 08/20/23 11:47 POC Glucose 225 H OUTPATIENT ANTIDIABETIC REGIMEN: * Metformin ER 1 gm PO daily with dinner * Jardiance 10 mg PO QAM HbA1c: 7.3% ASSESSMENT: 08/19: * Kamran received 115 units of insulin yesterday (25 were basal) * Fasting BSG above goal range, increased basal insulin by 20% * Prednisone frequency decreased from TID to BID, BSGs all above goal range yesterday, carbohydrate ratio tightened. * Discussed with RN who states that patient has been snacking and has requested to not have any food restrictions. Will interpret elevated BSGs with caution and adjust insulin with caution. 08/16: * Patient received 15 units of basal yesterday and 22 units of bolus. BSGs were 129-175-143 mg/dl showing adequate control on steroids. * Prednisone dose remains the same today. Continue with same basal and bolus parameters. 08/15: * 68 y/o M admitted for SOB, failure to thrive, non-compliance with meds and oxygen. Patient was admitted here only 4 days ago and discharged. History of COPD, diabetes. Awaiting placement to medicare nurse care facility. * Patient is started on Prednisone 10 mg QID tapering down every 2 or 3 days. * He had been ordered Metformin home dose yesterday but will place this on hold for now and initiate basal/bolus insulin same as last admission. * Basal 10 units given this morning * Novolog parameters based on stress between 2 and 3. PLAN FOR INPATIENT GLYCEMIC CONTROL: * Hold outpatient oral diabetes medications * Basal insulin * Lantus 15 units SQ BID * Bolus insulin * NovoLog per scale ACHS or Q6hrs while NPO * Goal Range: Low 110 mg/dL - High 140 mg/dL * Correction Factor: 15 mg/dL/unit * Nutritional / Prandial insulin per carb ratio of 1 unit per 4 grams CHO consumed
--- NOTE | 2023-08-20 15:13 | Discharge Summary ---
Date of Service August 20, 2023 Admission HPI Per Admitting Provider Kamran Albert is a 68 year old male who presents to the ER at the behest of his family due to inability to cope at home alone since discharge 2 days ago. The patient reports he is unsure why he is here, he feels at his baseline self and recommends I talk to his daughter why he is here. On discussion with his daughter over the phone (Mamta) she reports he lives alone in a trailer. Every time he goes home he does not understand the oxygen or how to use this and how to hook it up to the ventilator and this has also been reported to her from [employer] who have been in to help set it up. He continues to smoke despite needing 24/7 oxygen. He has been wetting himself as unable to get to the toilet. He has zero energy therefore cannot cook and hasn't eaten. He is confused and not making sense a lot of the time which may improve while in hospital as the BiPAP is used for his CO2 retention at night and oxygen during the day. No acute exacerbation suspected, he has ongoing non productive cough and shortness of breath. He is legally from his but not . No POA paperwork. She reports she is an only child. Discharge Data Allergies Allergy/AdvReac Type Severity Reaction Status Date / Time sulfamethoxazole AdvReac Intermediate Dizziness Verified 08/15/23 15:17 trimethoprim AdvReac Intermediate Dizziness Verified 08/15/23 15:17 Consultations 08/15/23 14:18 ED Decision to Admit Stat 08/15/23 17:33 Consult Ethics Routine 08/17/23 11:12 Consult Urology Routine Ordered Studies 08/15/23 12:35 CT head/brain wo con Stat Hospital Course (1) Encounter for assessment of healthcare decision-making capacity: Patient currently lacks insight into his medical decision making as evidence by lack of knowledge to why he is here today. "legally " from his per his daughter and not listed as contact. Daughter "Mamta" is only child wishes him to be admitted for placement at this time as not safe to be at home as evidenced by history in H&P. Consult ethics as if not and without POA paperwork hi should be making his medical decisions. He is orientated x3 in addition but lacks medical decisional capacity on admission but this should be continually reassessed. On 08/15 Patient now agreeable to rehab. Patient is awake alert oriented. Patient reports his main issue is his feeling on that he needs to contiue to go and has accidents. Will obtain abladder scan. Update: this was negative only showed 3 ml On 08/16 Consulted Urology: patient refused medical management. Patient asking to stop using BIPAP machine. will continue for now (2) Failure to thrive in adult: Not able to cope at home. x2 readmissions in July as unable to cope at home. Planning on placement which patient is agreeable to at this time. PT/OT. (3) COPD with emphysema: Continue his routine inhalers or hospital formulary equivalent Duonebs PRN No acute exacerbation suspected Continue prednisone taper from last admission (4) Acute on chronic respiratory failure with hypoxia and hypercapnia: Appears to have some acute decompensation as evidence by non-compensated acidosis. Suspect not using his BiPAP HS, will order to use here. 2 step [07/30/23] 3LPM O2 at rest and 4LPM O2 on exertion (5) Tobacco dependence: Continues to smoke per patient with continuous oxygen use. Nicotine patch ordered. (6) Urinary incontinence: Inability to get to the toilet in time (7) Depression: Continue duloxetine and mirtazapine (8) DM2 (diabetes mellitus, type 2): HbA1C 7. in June Continue metformin and Jardiance (9) Hypertension: Continue lisinopril and metoprolol Plan VTE Prophylaxis - Lovenox 40mg SQ daily Diet - regular Discharge Plan Discharge Items Patient Disposition: Transfer Halfway Fac Reason For Visit: FAILURE TO THRIVE Discharge Diagnosis: failure to thrive Activity: Resume your previous activity Non-emergency contact: Primary Care Provider Call non-emergency contact if: you have any medication questions Follow-up/Referrals: Leslie Lind DO [Primary Care Provider] - Diet: Carb Count or DM1 Addtl Attending Provider Instructions: Recommend followup with your PCP in 1-2 weeks. In regards to your prednisone taper, you need 3 more doses of 20 mg, then 4 more doses of 10 mg doses then you stop Pending Studies at Discharge: No Stand-Alone Forms: My [facility], Smoking Cessation Skilled Items Patient informed of condition?: Yes DNR: No Discharge Level of Care: Skilled Communicable Disease: No Discharge Prognosis: Stable Lines: None Urinary Catheter: No Medications and DC Order Prescriptions: Continued lisinopril 5 mg tablet 5 mg PO QAM Qty: 90 3RF metoprolol succinate 25 mg tablet extended release 24 hr 25 mg PO QAM Qty: 90 3RF atorvastatin 40 mg tablet 40 mg PO QAM Qty: 90 3RF acetaminophen [Tylenol Extra Strength] 500 mg tablet 1,000 mg PO DIRECTED PRN (Reason: Pain) mirtazapine 45 mg tablet 45 mg PO QPM prednisone 10 mg tablet 10 mg PO DIRECTED Qty: 40 0RF Rx Instructions: 4 a day x 4 d>3 a day x 4 d>2 a day x 4 d>1 a day omeprazole 40 mg capsule,delayed release(DR/EC) 40 mg PO QPM celecoxib [Celebrex] 100 mg Capsule 100 mg PO BID Hold Instructions: please hold until your prednisone course is complete Jardiance 10 mg tablet 10 mg PO QAM (DME) Oxygen Home E0424 Liters Per Minute See Rx Instructions .ROUTE .MEDSUPPLY Qty: 1 0RF Rx Instructions: 3 L NC O2 at rest/sleep. 4 L with ambulation. (DME) nebulizer and compressor Device See Rx Instructions .Route Qty: 1 0RF Rx Instructions: As directed ipratropium-albuterol 0.5 mg-3 mg(2.5 mg base)/3 mL Solution For Nebulization 3 ml inhalation Q6H PRN (Reason: cough/wheeze/shortness of breath) Qty: 90 0RF nicotine [Nicoderm CQ] 21 mg/24 hr Patch 24 Hour 21 mg transdermal QAM Qty: 30 0RF duloxetine [Cymbalta] 30 mg capsule,delayed release(DR/EC) 30 mg PO DAILY Qty: 30 1RF fluticasone furoate-vilanterol [Breo Ellipta] 100-25 mcg/dose blister with device 1 inh inhalation DAILY Qty: 60 1RF Rx Instructions: rinse mouth with water after each use. spit the water out, do not swallow. metformin 500 mg tablet extended release 24 hr 1,000 mg PO QPM aspirin 81 mg tablet,delayed release (DR/EC) 81 mg PO QAM Discharge Orders: Discharge Order (Routine); Ordered 08/20/23 Ordered By: Krish Gil/Other Patient Handouts: Long-Term Complications of Diabetes, Understanding Carbohydrates, Diabetes: Inspecting Your Feet, Understanding Type 2 Diabetes Admission Data Admit Date/Time: 08/16/23 09:01 Attending Provider: Krish Ortiz Admit Provider: Krish Ortiz Primary Care Provider: Leslie Lind Other Providers: Raúl Pettit; Roberto Dawn; Han Zamora; Jose Michaels; Vivian Baldwin; Ori Elias; Aleida Quijano; Juana Craig; Dustin King; Mei Pham; James Solitario; Eduardo Stewart; Ric Stern Other Interventions: Discharge Summary Assessment (RN) Last Done: 08/20/23 15:09 Coding Diagnoses Encounter for assessment of healthcare decision-making capacity Z02.79 Failure to thrive in adult R62.7 COPD with emphysema J43.9 Acute on chronic respiratory failure with hypoxia and hypercapnia J96.21; J96.22 Tobacco dependence F17.200 Urinary incontinence R32 Depression F32.A DM2 (diabetes mellitus, type 2) E11.9 Hypertension I10
== END 2023-08-20 15:37 | DRG 189 ==
LOC: 3N 11:45 → ED 11:45 → SUATTDRO 14:54 → 3N 17:30 → SUATTDRO 08-16 09:01